=== PATIENT | male | born 1945 | race Caucasian/White ===

== ENCOUNTER → 2018-04-17 07:37 | Outpatient (CLI) | payer MEDICARE, SELFPAY ==
[2018-04-17 10:15] LABS: Color, Urine Yellow (Yellow); Glucose, Dipstick Normal (Normal); Ketone-Dipstick Negative (Negative); Leukocyte Esterase-Dipstick Negative /ul (Negative); Nitrite-Dipstick Negative (Negative); Occult Blood-Urine Negative /ul (Negative); Protein-Dipstick Negative (Negative); Urine Bilirubin Dipstick Negative (Negative); Urine Clarity Clear (Clear); Urine Urobilinogen Normal (Normal)
[2018-04-17 10:19] LABS: Absolute Lymphocyte Count 1.12 X10^3/ul (0.83-4.51); Absolute Neutrophil Count 2.6 X10^3/uL (2.0-7.7); Basophil# 0.03 X10^3/uL; Basophil% 0.7 % (0-1); Eosinophil# 0.24 X10^3/uL; Eosinophils% 5.3 % (0-5); Hematocrit 43.6 % (40-54); Hemoglobin 14.9 g/dl (13.0-16.5); Lymphocyte # 1.12 X10^3/ul (4.0); Lymphocyte % 24.9 % (19-41); Mean Corp Hgb Conc 34.2 g/gl (32-36); Mean Corpuscular Hgb 33.5 pg (27.0-32.0); Mean Platelet Vol. 12.5 fl (6.2-12.0); Monocyte# 0.46 X10^3/uL; Monocyte% 10.2 % (0-10); Neutrophil # 2.64 X10^3/uL (2.7-7.7); Neutrophil % 58.7 % (47-70); Platelet Count 163 K/mm3 (150-450); RBC Distribution Width CV 13.9 % (11.6-14.6); RBC Distribution Width SD 49.3 fl (35.1-43.9); Red Blood Count 4.45 M/mm3 (4.6-6.2); White Blood Count 4.5 K/mm3 (4.4-11.0)
[2018-04-17 10:20] LABS: POSITIVE COUNT NO; POSITIVE DIFFERENTIAL NO; POSITIVE MORPHOLOGY NO
[2018-04-17 10:37] LABS: BUN 30 mg/dL (7-18); Creatinine, Serum 1.27 mg/dL (0.70-1.30); Glucose 88 mg/dL (74-106)
[2018-04-17 10:38] LABS: ALB/GLOB Ratio 1.1 RATIO (0.9-2.4); AST(SGOT) 28 U/L (15-37); Alanine Aminotransfer ALT/SGPT 33 U/L (16-61); Albumin, Serum 3.9 g/dL (3.2-5.0); Alkaline Phosphatase 60 U/L (45-117); Anion Gap 8 (5-15); BUN/Creat Ratio 23.6 RATIO (10-20); Calcium,Total 9.2 mg/dL (8.5-10.1); Chloride 107 mmol/L (98-107); Cholesterol 139 mg/dL (200); EST Glomerular Filtration Rate 59 mL/min (>60); Est Glom Filt Rate - Afr Amer 71 mL/min (>60); Globulin 3.4 g/dL (2.2-4.2); High Density Lipoprotein 36 mg/dL; Protein, Total 7.3 g/dL (6.4-8.2); Sodium Level 142 mmol/L (136-145); Triglycerides 114 mg/dL; Very Low Density Lipoprotein 23 mg/dL (5-40)
== END ==
PROVIDERS: Family Provider Family Medicine; PCP Family Medicine; Visit Provider Family Medicine
DX: Z00.00 Encounter for general adult medical examination without abnormal findings (principal); E78.00 Pure hypercholesterolemia, unspecified; I10 Essential (primary) hypertension; R04.0 Epistaxis; Z12.5 Encounter for screening for malignant neoplasm of prostate
CPT/HCPCS: 36415; 80053; 80061; 81002; 84153; 85025; G0103

== ENCOUNTER → 2018-05-17 14:15 | Outpatient (CLI) | payer MEDICARE, SELFPAY ==
--- NOTE | 2018-05-17 14:22 | VDLE_ITS ---
Reason For Study: LEG PAIN AND SWELLING/s/p trauma RIGHT LEFT GSV is normal. CFV is compressible, spontaneous, phasic, CFV is compressible, spontaneous, phasic, competent, and demonstrates normal competent and demonstrates normal augmentation. augmentation. FV is compressible, spontaneous, phasic, competent and demonstrates normal augmentation. POP V is compressible, spontaneous, phasic, competent and demonstrates normal augmentation. T/P Trunk is compressible. PTV is compressible. RT PerV is compressible. Soleus vein dilated and non-compressible Hypoechoic structure noted medial calf measuring3.6 x .55 cm. Non-vascular. Procedure Exam performed in department. A preliminary report was called and/or faxed to Dr. Isaac. Interpretation Summary Acute deep vein thrombosis is noted in the right soleus vein. The remainder of the right lower extremity deep venous system is patent and compressible. Valvular competence appears intact within the proximal deep venous system on the right . The right greater saphenous vein appears patent and compressible segmentally. A non-vascular, hypoechoic structure is noted in the right medial calf, measuring 3.6 cm x 0.55 cm. This probably represents a seroma or hematoma. Clinical correlation is advised. Ordering Physician: Lobito Isaac Referring Physician: Lobito Isaac Performed By: Kadi Newberry RVT
== END ==
PROVIDERS: Family Provider Family Medicine; PCP Family Medicine; Visit Provider Family Medicine
DX: I82.4Z1 Acute embolism and thrombosis of unspecified deep veins of right distal lower extremity (principal); M79.89 Other specified soft tissue disorders
CPT/HCPCS: 93971

== ENCOUNTER → 2018-10-08 07:38 | Outpatient (CLI) | payer MEDICARE, SELFPAY ==
[2018-10-08 11:05] LABS: AST(SGOT) 24 U/L (15-37); Alanine Aminotransfer ALT/SGPT 32 U/L (16-61); Albumin, Serum 3.7 g/dL (3.2-5.0); Alkaline Phosphatase 54 U/L (45-117); Bilirubin, Direct 0.15 mg/dL (0.00-0.30); Cholesterol 126 mg/dL (200); Globulin 3.3 g/dL (2.2-4.2); High Density Lipoprotein 34 mg/dL; Triglycerides 148 mg/dL; Very Low Density Lipoprotein 30 mg/dL (5-40)
== END ==
PROVIDERS: Family Provider Family Medicine; PCP Family Medicine; Referring Provider Family Medicine; Visit Provider Family Medicine
DX: E78.00 Pure hypercholesterolemia, unspecified (principal)
CPT/HCPCS: 36415; 80061; 80076

== ENCOUNTER → 2019-04-18 07:35 | Outpatient (CLI) | payer MEDICARE, SELFPAY ==
[2019-04-18 10:20] LABS: Absolute Lymphocyte Count 1.09 X10^3/ul (0.83-4.51); Basophil# 0.02 X10^3/uL; Basophil% 0.3 % (0-1); Eosinophil# 0.17 X10^3/uL; Eosinophils% 2.5 % (0-5); Hemoglobin 14.9 g/dl (13.0-16.5); Lymphocyte # 1.09 X10^3/ul (4.0); Lymphocyte % 16.2 % (19-41); Mean Corp Hgb Conc 33.9 g/gl (32-36); Mean Corpuscular Hgb 33.5 pg (27.0-32.0); Mean Corpuscular Volume 98.9 fL (80-94); Mean Platelet Vol. 12.4 fl (6.2-12.0); Monocyte# 0.49 X10^3/uL; Monocyte% 7.3 % (0-10); Neutrophil # 4.95 X10^3/uL (2.7-7.7); Neutrophil % 73.6 % (47-70); POSITIVE COUNT NO; POSITIVE DIFFERENTIAL NO; POSITIVE MORPHOLOGY NO; Platelet Count 156 K/mm3 (150-450); RBC Distribution Width CV 13.5 % (11.6-14.6); RBC Distribution Width SD 48.5 fl (35.1-43.9); Red Blood Count 4.45 M/mm3 (4.6-6.2); White Blood Count 6.7 K/mm3 (4.4-11.0)
[2019-04-18 10:21] LABS: Color, Urine Yellow (Yellow); Glucose, Dipstick Normal (Normal); Ketone-Dipstick Negative (Negative); Leukocyte Esterase-Dipstick Negative /ul (Negative); Nitrite-Dipstick Negative (Negative); Occult Blood-Urine Negative /ul (Negative); Protein-Dipstick Negative (Negative); Urine Bilirubin Dipstick Negative (Negative); Urine Clarity Clear (Clear); Urine Urobilinogen Normal (Normal); Urine pH 6.5 (5.0 - 8.0)
[2019-04-18 10:52] LABS: ALB/GLOB Ratio 1.1 RATIO (0.9-2.4); AST(SGOT) 24 U/L (15-37); Alanine Aminotransfer ALT/SGPT 33 U/L (16-61); Albumin, Serum 3.6 g/dL (3.2-5.0); Alkaline Phosphatase 57 U/L (45-117); Anion Gap 6 (5-15); BUN 23 mg/dL (7-18); BUN/Creat Ratio 18.5 RATIO (10-20); Calcium,Total 8.8 mg/dL (8.5-10.1); Chloride 107 mmol/L (98-107); Cholesterol 125 mg/dL (200); Creatinine, Serum 1.24 mg/dL (0.70-1.30); EST Glomerular Filtration Rate 61 mL/min (>60); Est Glom Filt Rate - Afr Amer 73 mL/min (>60); Globulin 3.4 g/dL (2.2-4.2); Glucose 86 mg/dL (74-106); High Density Lipoprotein 37 mg/dL; PSA,Total - Annual Screen 0.21 ng/mL (0.00-4.00); Potassium 4.1 mmol/L (3.5-5.1); Sodium Level 142 mmol/L (136-145); Triglycerides 141 mg/dL; Very Low Density Lipoprotein 28 mg/dL (5-40)
== END ==
PROVIDERS: Family Provider Family Medicine; PCP Family Medicine; Referring Provider Family Medicine; Visit Provider Family Medicine
DX: Z00.00 Encounter for general adult medical examination without abnormal findings (principal); I10 Essential (primary) hypertension; E78.00 Pure hypercholesterolemia, unspecified; Z12.5 Encounter for screening for malignant neoplasm of prostate
CPT/HCPCS: 36415; 80053; 80061; 81002; 84153; 85025; G0103

== ENCOUNTER → 2019-07-04 12:59 | Outpatient (CLI) | payer MEDICARE, SELFPAY ==
[2017-11-11 15:10] VITALS: BMI 29.6
[2019-07-04 14:28] LABS: Homocysteine 10.6 umol/L (3.2-10.7)
== END ==
PROVIDERS: Family Provider Family Medicine; PCP Family Medicine; Referring Provider Family Medicine; Visit Provider Family Medicine
DX: D68.59 Other primary thrombophilia (principal); Z86.718 Personal history of other venous thrombosis and embolism
CPT/HCPCS: 36415; 81241; 83090; 85240; 85302; 85303; 85306; 85610; 86147

== ENCOUNTER → 2019-10-28 07:16 | Outpatient (CLI) | payer MEDICARE, SELFPAY ==
[2019-10-28 10:38] LABS: ALB/GLOB Ratio 1.2 RATIO (0.9-2.4); AST(SGOT) 25 U/L (15-37); Alanine Aminotransfer ALT/SGPT 29 U/L (16-61); Albumin, Serum 4.1 g/dL (3.2-5.0); Alkaline Phosphatase 60 U/L (45-117); Anion Gap 4 (5-15); BUN 29 mg/dL (7-18); BUN/Creat Ratio 19.7 RATIO (10-20); Calcium,Total 9.3 mg/dL (8.5-10.1); Chloride 108 mmol/L (98-107); Cholesterol 141 mg/dL (200); Creatinine, Serum 1.47 mg/dL (0.70-1.30); EST Glomerular Filtration Rate 50 mL/min (>60); Est Glom Filt Rate - Afr Amer 60 mL/min (>60); Globulin 3.3 g/dL (2.2-4.2); Glucose 87 mg/dL (74-106); High Density Lipoprotein 37 mg/dL; Potassium 3.8 mmol/L (3.5-5.1); Protein, Total 7.4 g/dL (6.4-8.2); Sodium Level 141 mmol/L (136-145); Triglycerides 135 mg/dL; Very Low Density Lipoprotein 27 mg/dL (5-40)
== END ==
PROVIDERS: Family Provider Family Medicine; PCP Family Medicine; Referring Provider Family Medicine; Visit Provider Family Medicine
DX: I10 Essential (primary) hypertension (principal); E78.00 Pure hypercholesterolemia, unspecified
CPT/HCPCS: 36415; 80053; 80061

== ENCOUNTER → 2019-11-10 07:33 | Outpatient (CLI) | payer MEDICARE, SELFPAY ==
[2019-11-10 10:22] LABS: Anion Gap 4 (5-15); BUN 22 mg/dL (7-18); BUN/Creat Ratio 15.8 RATIO (10-20); Calcium,Total 9.2 mg/dL (8.5-10.1); Chloride 105 mmol/L (98-107); Creatinine, Serum 1.39 mg/dL (0.70-1.30); EST Glomerular Filtration Rate 53 mL/min (>60); Est Glom Filt Rate - Afr Amer 64 mL/min (>60); Glucose 86 mg/dL (74-106); Sodium Level 139 mmol/L (136-145)
== END ==
PROVIDERS: Family Provider Family Medicine; PCP Family Medicine; Referring Provider Family Medicine; Visit Provider Family Medicine
DX: R79.89 Other specified abnormal findings of blood chemistry (principal)
CPT/HCPCS: 36415; 80048

== ENCOUNTER → 2020-02-16 07:32 | Outpatient (CLI) | payer MEDICARE, SELFPAY ==
[2017-11-11 15:10] VITALS: BMI 29.6
[2020-02-16 10:33] LABS: Anion Gap 5 (5-15); BUN 25 mg/dL (7-18); BUN/Creat Ratio 19.5 RATIO (10-20); Calcium,Total 9.5 mg/dL (8.5-10.1); Chloride 105 mmol/L (98-107); Creatinine, Serum 1.28 mg/dL (0.70-1.30); EST Glomerular Filtration Rate 58 mL/min (>60); Est Glom Filt Rate - Afr Amer 70 mL/min (>60); Glucose 89 mg/dL (74-106); Potassium 3.7 mmol/L (3.5-5.1); Sodium Level 140 mmol/L (136-145)
== END ==
PROVIDERS: PCP Family Medicine; Referring Provider Family Medicine; Visit Provider Family Medicine
DX: R79.89 Other specified abnormal findings of blood chemistry (principal)
CPT/HCPCS: 36415; 80048

== ENCOUNTER → 2020-04-30 07:34 | Outpatient (CLI) | payer MEDICARE, SELFPAY ==
[2017-11-11 15:10] VITALS: BMI 29.6
[2020-04-30 10:19] LABS: Color, Urine Yellow (Yellow); Glucose, Dipstick Normal (Normal); Ketone-Dipstick Negative (Negative); Leukocyte Esterase-Dipstick Negative /ul (Negative); Nitrite-Dipstick Negative (Negative); Occult Blood-Urine Negative /ul (Negative); Protein-Dipstick Negative (Negative); Specific Gravity, Urine 1.015 (1.002-1.030); Urine Bilirubin Dipstick Negative (Negative); Urine Clarity Clear (Clear); Urine Urobilinogen Normal (Normal)
[2020-04-30 10:20] LABS: Absolute Neutrophil Count 3.7 X10^3/uL (2.0-7.7); Basophil# 0.05 X10^3/uL; Basophil% 0.8 % (0-1); Eosinophil# 0.34 X10^3/uL; Eosinophils% 5.3 % (0-5); Hematocrit 46.6 % (40-54); Hemoglobin 15.6 g/dL (13.0-16.5); Lymphocyte % 24.8 % (19-41); Mean Corp Hgb Conc 33.5 g/dL (32-36); Mean Corpuscular Hgb 33.8 pg (27.0-32.0); Mean Corpuscular Volume 100.9 fL (80-94); Mean Platelet Vol. 11.9 fl (6.2-12.0); Monocyte# 0.71 X10^3/uL; NRBC Flagged by Analyzer 0 % (0-5); Neutrophil # 3.73 X10^3/uL (2.7-7.7); Neutrophil % 57.6 % (47-70); Platelet Count 203 K/mm3 (150-450); RBC Distribution Width CV 13.2 % (11.6-14.6); RBC Distribution Width SD 49.1 fl (35.1-43.9); Red Blood Count 4.62 M/mm3 (4.6-6.2); White Blood Count 6.5 K/mm3 (4.4-11.0)
[2020-04-30 10:34] LABS: ALB/GLOB Ratio 1.1 RATIO (0.9-2.4); AST(SGOT) 30 U/L (15-37); Alanine Aminotransfer ALT/SGPT 33 U/L (16-61); Albumin, Serum 4.1 g/dL (3.2-5.0); Alkaline Phosphatase 61 U/L (45-117); Anion Gap 7 (5-15); BUN 37 mg/dL (7-18); BUN/Creat Ratio 24.8 RATIO (10-20); Calcium,Total 9.5 mg/dL (8.5-10.1); Chloride 105 mmol/L (98-107); Cholesterol 165 mg/dL (200); Creatinine, Serum 1.49 mg/dL (0.70-1.30); EST Glomerular Filtration Rate 49 mL/min (>60); Est Glom Filt Rate - Afr Amer 59 mL/min (>60); Globulin 3.7 g/dL (2.2-4.2); Glucose 93 mg/dL (74-106); High Density Lipoprotein 42 mg/dL; PSA,Total - Annual Screen 0.22 ng/mL (0.00-4.00); Potassium 4.4 mmol/L (3.5-5.1); Protein, Total 7.8 g/dL (6.4-8.2); Sodium Level 140 mmol/L (136-145); Triglycerides 106 mg/dL; Very Low Density Lipoprotein 21 mg/dL (5-40)
== END ==
PROVIDERS: PCP Family Medicine; Referring Provider Family Medicine; Visit Provider Family Medicine
DX: Z00.00 Encounter for general adult medical examination without abnormal findings (principal); R79.89 Other specified abnormal findings of blood chemistry; D68.59 Other primary thrombophilia; I10 Essential (primary) hypertension; E78.00 Pure hypercholesterolemia, unspecified; Z12.5 Encounter for screening for malignant neoplasm of prostate
CPT/HCPCS: 36415; 80053; 80061; 81002; 84153; 85025; G0103

== ENCOUNTER 2020-10-14 07:04 | Emergency (ER) | payer MEDICARE, SELFPAY ==
[2020-10-14 07:05] VITALS: BP 145/92; PULSE 88; RESP 16; TEMP 36.4; O2SAT 98; BMI 29.6
[2020-10-14 07:08] VITALS: BP 145/92; PULSE 88; RESP 16; TEMP 36.4; O2SAT 98
--- NOTE | 2020-10-14 07:30 | CT_ITS ---
STUDY: CT ABDOMEN AND PELVIS WITHOUT CONTRAST REASON FOR EXAM: Male, 75 years old. Right flank pain intermittently x several weeks, nausea/vomiting. Hx hypertension. RADIATION DOSAGE (If Supplied By Facility): CTDIvol = ( 16.54 ) mGy, DLP = ( 776.71 ) mGycm TECHNIQUE: Transaxial images were obtained from the dome of the diaphragm to the symphysis pubis without oral contrast, and without intravenous contrast. Sagittal and coronal images were reconstructed. Individualized dose optimization techniques were used for this CT. COMPARISON: None. FINDINGS: Lung bases: Increased AP diameter favoring element of COPD. Mild dependent changes. Atelectasis/scar at the lung bases. Left lung bases 3 mm nodule (axial image 2 series 2). Left lung base 3 mm nodule (axial image 6 series 2). Heart: Coronary artery disease. Liver: Hepatic steatosis. Gallbladder/biliary ducts: Unremarkable. Pancreas: Mild pancreatic atrophy. Spleen: Unremarkable. Adrenal glands: Unremarkable. Kidneys/ureters/bladder: Minimal perinephric fat stranding. Mild renal parenchymal atrophy. Abnormal lobulated contour of the right kidney (axial image 33 series 2). No discrete renal lesion identified given noncontrast technique. Nondilated ureters. Normal urinary bladder. Prostate: Unremarkable. Large bowel/small bowel: No acute large bowel or small bowel process. Appendix: Unremarkable (axial image 89 series 2). Gastroesophageal junction/stomach: Unremarkable. Retroperitoneum/lymph nodes: Significantly enlarged para-aortic lymph nodes measuring up to approximately 2.8 cm x 2.9 cm with somewhat matted appearance (axial image 58 series 2). Region of left traumatic measures approximately 7.4 cm x 3 cm (axial image 60 series 2). No ascites. No intra-abdominal free air. Vascular: Vascular calcifications. No aneurysm. Osseous structures: Degenerative changes. L5 bilateral pars defects with grade 1/2 spondylolisthesis. No acute process. Subcutaneous/soft tissues: Fat-containing inguinal hernias. No acute process. CT/Abdomen/Pelvis without Cont IMPRESSION: Significantly enlarged para-aortic lymph nodes with matting (potential infectious/inflammatory/neoplastic etiologies; correlate CBC with differential) Bilateral perinephric fat stranding (correlate urinalysis) Atypical asymmetric right kidney lobulated contour without obvious discrete lesion given noncontrast technique (correlate follow-up nonemergent ultrasound or renal protocol CT/MRI) COPD with 3 mm lung based nodules (follow up as per below) The Fleischner society pulmonary nodule recommendations are usually for follow-up and management of nodules smaller than 8 mm. Detected Incidentally at non-screening CT Nodule size (mm) less than or equal to 4 low risk patients: no follow-up needed high risk patients: follow-up at 12 months and if no change, no further imaging needed Electronically Signed: Chris Thayer DO at 8:27 EST Tel , Service support ,
--- NOTE | 2020-10-14 07:38 | ED.DCSUM_ITS ---
History of Present Illness Chief Complaint: General Illness Narrative: Patient presenting for evaluation secondary to chills and flank pain. Patient states that intermittently over the course of about the last week he has been having paroxysmal right-sided flank pain. Reports that this will come and go, does not really have any sort of exacerbating relieving factors. He was having an increased amount of pain tonight, he took a buffered aspirin which did not seem to be alleviating his symptoms. Over the course the last 4 days the patient tells me that he has been having chills. This is associated with tooth chattering at night. He has not had any objective fevers, he took his temperature last night it was 98.7. Patient does report that he had an episode of emesis tonight. Patient has a very mild cough which he states is at his baseline. He denies any urinary signs or symptoms. Denies any diarrhea or change in color of his stool. Patient denies any history of abdominal surgeries. He denies any sick contacts. No shortness of breath or headache associated with this. He does not have any prior history of kidney stones. Review of systems otherwise negative. Past Medical History - Allergies and Home Meds Allergies/Adverse Reactions: Allergies celecoxib [From Celebrex] Allergy (Verified 10/14/20 07:05) Unknown meloxicam Allergy (Verified 10/14/20 07:05) Unknown Primary Care Physician: Lobito Isaac MD [Primary Care Provider] - Prior records reviewed: Yes Past Medical History: - - Hypertension, hyperlipidemia Smoking Status: Never smoker Alcohol: None Drugs: None Review of Systems All systems negative except as indicated General: Reports: Chills Eyes: Denies: Visual changes - bilaterally, Diplopia ENT: Denies: Rhinorrhea, Sore throat Cardiovascular: Denies: Chest pain, Palpitations Respiratory: Denies: Dyspnea, Cough, Dyspnea on exertion Gastrointestinal: Reports: Abdominal pain, Nausea, Vomiting Genitourinary: Denies: Dysuria, Hematuria, Frequency Musculoskeletal: Denies: Back pain, Extremity Pain Skin: Denies: Rash, Wounds Neurological: Denies: Headache, Weakness, Numbness Physical Exam Vital Signs/Narrative: Vital Signs Temp Pulse Resp BP Pulse Ox 10/14/20 07:08 97.5 F L 88 16 145/92 H 98 10/14/20 07:05 97.5 F L 88 16 145/92 H 98 Inital Vital Signs reviewed: Yes General: Well nourished, Well developed, No Acute Distress Head: Normocephalic, Atraumatic Eyes: Perrl, EOMI ENT: Moist mucous membranes, No rhinorrhea Neck: Supple, Nontender Cardiovascular: Regular rate, Regular rhythm, No murmurs Respiratory: No distress, CTA bilaterally, Chest nontender Abdomen: Soft, Nontender, Nondistended, Normal bowel sounds. Negative for: Tender - Patient complains of pain in his right flank but there is no reproduction of this. No evidence of overlying vesicular rash. No abdominal tenderness or masses. Back: Nontender, Normal Inspection Extremities: Nontender, No edema Skin: Normal color, No rash Neurological: Alert, Oriented x3, Cranial nerves II-XII grossly intact, Normal Strength, Normal Sensation Psychological: Normal affect, Normal Mood Diagnostic/Tx/Re-eval Clinical Impression(s) from Imaging Studies Abdomen/Pelvis CT 10/14/20 07:30 IMPRESSION: Significantly enlarged para-aortic lymph nodes with matting (potential infectious/inflammatory/neoplastic etiologies; correlate CBC with differential) Bilateral perinephric fat stranding (correlate urinalysis) Atypical asymmetric right kidney lobulated contour without obvious discrete lesion given noncontrast technique (correlate follow-up nonemergent ultrasound or renal protocol CT/MRI) COPD with 3 mm lung based nodules (follow up as per below) The Fleischner society pulmonary nodule recommendations are usually for follow-up and management of nodules smaller than 8 mm. Detected Incidentally at non-screening CT Nodule size (mm) less than or equal to 4 low risk patients: no follow-up needed high risk patients: follow-up at 12 months and if no change, no further imaging needed Electronically Signed: Chris Thayer DO at 8:27 EST Tel , Service support , Laboratory Data 10/14/20 10/14/20 10/14/20 07:35 07:35 07:56 WBC 11.5 H RBC 4.39 L Hgb 14.6 Hct 44.0 MCV 100.2 H MCH 33.3 H MCHC 33.2 RDW Std Deviation 47.8 H RDW Coeff of Luis 12.8 Plt Count 208 MPV 11.1 Immature Gran % (Auto) 0.300 Neut % (Auto) 83.7 H Lymph % (Auto) 6.0 L [place] % (Auto) 9.5 Eos % (Auto) 0.3 Baso % (Auto) 0.2 Absolute Neuts (auto) 9.6 H Absolute Lymphs (auto) 0.69 L Nucleated RBC % 0 Sodium 136 Potassium 4.0 Chloride 105 Carbon Dioxide 24.0 Anion Gap 7 BUN 29 H Creatinine 1.47 H Estim Creat Clear Calc 41.36 Est GFR (MDRD) Af Amer 60 Est GFR (MDRD) Non-Af 50 L BUN/Creatinine Ratio 19.7 Glucose 125 H Calcium 9.6 Urine Color Yellow Urine Clarity Sl. Cloudy Urine pH 6.0 Ur Specific [place] 1.015 Urine Protein 15 H Urine Glucose (UA) Normal Urine Ketones 5 H Urine Occult Blood Negative Urine Nitrite Negative Urine Bilirubin Negative Urine Urobilinogen Normal Ur Leukocyte Esterase Negative Urine RBC 0 SEEN Urine WBC 0 SEEN Ur Squamous Epith Cells 0-5 SEEN Urine Bacteria RARE Hyaline Casts 0-5 SEEN Urine Mucus 0 SEEN - Medical Decision Making Patient presented with chills and flank pain. IV was established laboratory studies were obtained. CBC demonstrates a white blood cell count of 11 with a slight neutrophilic predominance, no evidence of blast cells, no evidence of anemia or thrombocytopenia. Chemistry shows no evidence of electrolyte derangements, patient's renal function is at baseline. Urinalysis does not demonstrate evidence of infection. As there was some concern for the possibility of renal colic, CT abdomen and pelvis was performed without IV contrast. This does not demonstrate any evidence of urolithiasis, or any intestinal pathology, but does show some perinephric stranding and also shows lymph node enlargement in the periaortic area. Differential considerations included by radiology were inflammatory, infectious, or neoplastic. This does not seem to be an infectious etiology as the patient does not have objective fevers, does not have a significant leukocytosis and appears nontoxic. This is more likely to be neoplastic or inflammatory. I did contact oncology, Dr. Vallejo, who agrees to see the patient in follow-up. I informed the patient of these findings, and instructed him that he will be requiring advanced imaging and further work-up of this. All questions were answered at the bedside. Patient was discharged in stable condition. ED Disposition - Plan for ED Patient: Disposition: Home or Assisted Living Diagnosis: Lymphadenopathy, retroperitoneal Instructions: Blank Diagnosis Form Referrals: Diane Eugene MD [STAFF PHYSICIAN] - As soon as possible (Call the office tomorrow between 9 AM and noon for the first available appointment)
[2020-10-14] MEDS: Ondansetron 4 MG/2 ML Vial IV (07:44)
[2020-10-14] MEDS: Acetaminophen 325 MG Tablet 650 MG PO (07:44)
[2020-10-14 07:47] LABS: Absolute Lymphocyte Count 0.69 X10^3/uL (0.83-4.51); Absolute Neutrophil Count 9.6 X10^3/uL (2.0-7.7); Basophil# 0.02 X10^3/uL; Basophil% 0.2 % (0-1); Eosinophil# 0.03 X10^3/uL; Eosinophils% 0.3 % (0-5); Hemoglobin 14.6 g/dL (13.0-16.5); Lymphocyte # 0.69 X10^3/ul (4.0); Mean Corp Hgb Conc 33.2 g/dL (32-36); Mean Corpuscular Hgb 33.3 pg (27.0-32.0); Mean Corpuscular Volume 100.2 fL (80-94); Mean Platelet Vol. 11.1 fl (6.2-12.0); Monocyte# 1.09 X10^3/uL; Monocyte% 9.5 % (0-10); NRBC Flagged by Analyzer 0 % (0-5); Neutrophil # 9.58 X10^3/uL (2.7-7.7); Neutrophil % 83.7 % (47-70); Platelet Count 208 K/mm3 (150-450); RBC Distribution Width CV 12.8 % (11.6-14.6); RBC Distribution Width SD 47.8 fl (35.1-43.9); Red Blood Count 4.39 M/mm3 (4.6-6.2); White Blood Count 11.5 K/mm3 (4.4-11.0)
[2020-10-14 08:03] LABS: Anion Gap 7 (5-15); BUN 29 mg/dL (7-18); BUN/Creat Ratio 19.7 RATIO (10-20); Calcium,Total 9.6 mg/dL (8.5-10.1); Chloride 105 mmol/L (98-107); Creatinine, Serum 1.47 mg/dL (0.70-1.30); EST Glomerular Filtration Rate 50 mL/min (>60); Est Glom Filt Rate - Afr Amer 60 mL/min (>60); Estimated Creatinine Clearance 41.36 ml/min; Glucose 125 mg/dL (74-106); Sodium Level 136 mmol/L (136-145)
[2020-10-14 08:03] LABS: Mucous, Urine 0 SEEN /hpf (<or=2+); Red Blood Cells-Urine 0 SEEN /hpf (0-5); White Blood Cells 0 SEEN /hpf (0-5)
[2020-10-14 08:04] LABS: Color, Urine Yellow (Yellow); Glucose, Dipstick Normal (Normal); Ketone-Dipstick 5 mg/dl (Negative); Leukocyte Esterase-Dipstick Negative /ul (Negative); Nitrite-Dipstick Negative (Negative); Occult Blood-Urine Negative /ul (Negative); Protein-Dipstick 15 mg/dl (Negative); Specific Gravity, Urine 1.015 (1.002-1.030); Urine Bilirubin Dipstick Negative (Negative); Urine Clarity Sl. Cloudy (Clear); Urine Urobilinogen Normal (Normal)
[2020-10-14 08:12] LABS: Bacteria RARE /hpf (None Seen); Hyaline Cast 0-5 SEEN /lpf (0-5); Squamous Epithelial Cells - UA 0-5 SEEN /hpf (0-5)
[2020-10-14 09:21] VITALS: BP 112/78; PULSE 75; RESP 18; O2SAT 93
== END 2020-10-14 09:31 | disposition home or self-care (01) ==
PROVIDERS: Emergency Provider Emergency Medicine; PCP Family Medicine
DX: R59.0 Localized enlarged lymph nodes (principal); Z20.828 Contact with and (suspected) exposure to other viral communicable diseases; R10.9 Unspecified abdominal pain; R11.2 Nausea with vomiting, unspecified; R05 Cough; R68.83 Chills (without fever); J44.9 Chronic obstructive pulmonary disease, unspecified; I10 Essential (primary) hypertension; E78.5 Hyperlipidemia, unspecified; Z79.899 Other long term (current) drug therapy
CPT/HCPCS: 74176; 80048; 81001; 85025; 87635; 96374; 99284; J2405; U0003

== ENCOUNTER → 2020-10-27 07:42 | Outpatient (CLI) | payer MEDICARE, SELFPAY ==
[2020-10-27] VITALS (9 sets, daily range): BP systolic 99–147; BP diastolic 60–82; PULSE 62–74; RESP 13–19; TEMP 36.9; O2SAT 94–100; BMI 29.6
--- NOTE | 2020-10-27 | IMM_PTH ---
PATIENT: STEPHEN CHILDRESS LOC: [place] U#:[id number] AGE/SX: 80/M ROOM: RE10/27/[address]: Dr. Diane Eugene MD : 1945 BED: DIS: SPEC #: [id number] RECD: 10/28/20 13:54 STATUS: DARIUS REQ #: [id number] LEIGHANN: 10/27/20 00:[address]: Diane Eugene DEPT: IMMUNOHISTOCHEMISTRY RECD BY: Alma Donato ENTERED: 10/28/20 13:58 SP TYPE: IMMUNO OTHR DR: Dr. Lobito Isaac MD Tissues: Lymph node, NOS Procedures: Synapto (add) RCC (add) NAPSIN A (add) BCL-2 (add) BCL-6 (add) Bridger Ret (add) CD10 (add) CD138 (add) CD15 (add) CD20 (add) CD23 (add) CD3 (add) CD30 (add) CD31 (add) CD43 (add) CD45 (add) CD5 (add) CD56 (add) CD79A (add) CHROMO (add) CK20 (add) CK5-6 (add) CK7 (add) CK8 (add) MANNING-2 (add) CYCLIN (add) FIDEL (add) HEP PAR (add) KAPPA (add) KI-67 (add) LAMBDA (add) MACRO (add) P53 (add) TTF1 (add) Vimentin (add) FACTOR VIII (add) MUM1 (add) C-MYC (add) Pankeratin (initial) P40 (add) CD44 (add) PSAP (add) S-100 (add) PHYSICIAN & INSTITUTION [address] [address] SPECIMEN INFORMATION: Tissue Source: Right peritoneal lymph node Clinical Info: Enlarged lymph nodes Specimen Number: [id number] CPT code: 55118, 89786 x42 METHODOLOGY: Deparaffinized sections of prefer/formalin-fixed tissue or PAP/DQ stained slides are incubated with monoclonal/polyclonal antibodies/oligonucleotide probes. Localization is made via biotin free immunoperoxidase method. Appropriate controls are performed and reacted as expected. Results on target cell population are indicated in the following table: RESULTS: ANTIBODY / CLONE RESULT AE1-3 (AE1/AE3/PCK26) positive CD3 (PS1) negative CD5 (SP10) negative CD10 (56C6) negative CD15 (MMA) negative CD20 (L26) negative CD23 (1B12) negative CD30 (Felix-H2) negative CD31 (JJ/70A) negative CD43 (L60) negative CD45 (RP2/18) negative CD79a (11E3) negative CD138 (B-A38) negative BCL-2 (bcl-2/100/D5) negative BCL-6 (BL528T/A8) negative Cyclin D1/BCL-1 (SP4) negative Teller (polyclonal) negative Lambda (polyclonal) negative MUM1 (MRQ-43) negative C-MYC (Y69) negative Vimentin (V9) positive Factor VIII (R Ag) negative Macro (HAM-56) negative S-100 (4C4.9) negative FIDEL (E29) negative P53 (DO-7) positive, 50% Ki-67 (30-9) negative CK7 (OV-TL12/30) negative CK8 (74dgmdH88) negative CK20 (KS20.8) negative MANNING-2 (SP21) positive CD56 (123C3.D5) negative Chromo (LK2H10) negative Synapto (polyclonal) negative TTF-1 (8G7G3/1) negative Napsin A (Rabbit Polyclonal) negative HepPar (OCh1E5) negative RCC (PN-15) negative PSAP (PASE/4LJ) negative CALRET (polyclonal) negative anti-CD44 (SP37) positive CK5-6 (D5 & 1684) negative P40 (BC28) negative These tests were developed and their performance characteristics determined by [facility]. They may not have been cleared or approved by the U.S. Food and Drug Administration. The FDA has determined that such clearance or approval is not necessary. The above immunohistochemical/dualISH markers are ordered and reviewed by the Pathologist. INTERPRETATION: Right peritoneal lymph node, CT-guided biopsy: Atypical epithelioid cells present. AM:richie 11/02/20 Case has been reviewed in consultation with Dr. Adler who concurs with the above diagnosis. IDC:ALBERT
--- NOTE | 2020-10-27 07:56 | CT_ITS ---
PROCEDURE: CT GUIDED percutaneous biopsy of the retroperitoneal lymph nodes. DATE: 10/27/2020. INDICATION: Male, 75 years old. Retroperitoneal lymphadenopathy. PHYSICIAN: Roberto Carlos Street M.D. RADIATION DOSAGE (If Supplied By Facility): CTDIvol = ( 16.67 ) mGy, DLP = ( 390.94 ) mGycm PROCEDURE: The risks, benefits, and alternatives to the procedure were explained to the patient. The specific risk of hemorrhage requiring further treatment or intervention was detailed and accepted. Follow-up instructions were discussed with the patient as well. Written informed consent was obtained. The patient was brought into the CT suite and placed in the prone position.. . An appropriate entry site was identified. The overlying skin was prepped and draped in the usual sterile fashion. 1% lidocaine was administered subcutaneously for local anesthesia. Conscious sedation was performed. The patient received 2 mg of VERSED and 50 mcg of FENTANYL intravenously. Conscious sedation was started at 9:05 AM and terminated at 9:47 AM. The patient was independently monitored by the department nurse. Under CT guidance, a total of 7 passes were performed utilizing a 18-gauge core biopsy needle. The specimens were then placed in the appropriate fluid and transported to the laboratory for analysis. Hemostasis was obtained. The patient tolerated the procedure well without immediate complications. CT/Biopsy/Inj or Needle Placement IMPRESSION: Successful CT guided biopsy of the right retroperitoneal lymph nodes, as described above. Conscious sedation protocol was followed. Electronically Signed: Roberto Carlos Street, at 10:19 EST , Service support ,
[2020-10-27 07:57] LABS: Absolute Lymphocyte Count 1.31 X10^3/uL (0.83-4.51); Absolute Neutrophil Count 6.3 X10^3/uL (2.0-7.7); Basophil# 0.06 X10^3/uL; Basophil% 0.7 % (0-1); Eosinophil# 0.21 X10^3/uL; Eosinophils% 2.5 % (0-5); Hematocrit 42.6 % (40-54); Hemoglobin 14.3 g/dL (13.0-16.5); Lymphocyte # 1.31 X10^3/ul (4.0); Lymphocyte % 15.4 % (19-41); Mean Corp Hgb Conc 33.6 g/dL (32-36); Mean Corpuscular Hgb 33.7 pg (27.0-32.0); Mean Corpuscular Volume 100.5 fL (80-94); Mean Platelet Vol. 10.7 fl (6.2-12.0); Monocyte# 0.59 X10^3/uL; Monocyte% 6.9 % (0-10); NRBC Flagged by Analyzer 0 % (0-5); Neutrophil # 6.32 X10^3/uL (2.7-7.7); Neutrophil % 74.1 % (47-70); Platelet Count 362 K/mm3 (150-450); RBC Distribution Width CV 12.1 % (11.6-14.6); RBC Distribution Width SD 45.5 fl (35.1-43.9); Red Blood Count 4.24 M/mm3 (4.6-6.2); White Blood Count 8.5 K/mm3 (4.4-11.0)
[2020-10-27 08:06] LABS: International Normalized Ratio 1.1; Prothrombin Time (Protime)PT. 13.3 SECONDS (11.7-14.9)
[2020-10-27 08:07] LABS: Partial Thromboplast Time 30.1 Seconds (24.1-36.2)
[2020-10-27] MEDS: fentaNYL 100 MCG/2 ML Ampul IV (09:04)
[2020-10-27] MEDS: Midazolam 2 MG/2 ML Syringe IV (09:05)
--- NOTE | 2020-10-27 10:00 | ASPIGT_PTH ---
PATIENT: STEPHEN CHILDRESS LOC: [place] U#:[id number] AGE/SX: 80/M ROOM: RE10/27/[address]: Dr. Diane Eugene MD : 1945 BED: DIS: SPEC #: [id number] RECD: 10/27/20 10:23 STATUS: DARIUS REQ #: [id number] LEIGHANN: 10/27/20 10:[address]: Diane Eugene DEPT: SURGICAL PATHOLOGY RECD BY: Aixa Baker ENTERED: 10/27/20 10:25 SP TYPE: ASP RAD OTHR DR: Dr. Lobito Isaac MD Tissues: LYMPH NODE BIOPSY Procedures: FNA Specimen Adequacy Special Stain Group II Surgery Specimen Level IV Imprint (control) HEADER OPERATION: CT-guided right peritoneal lymph node PRE-OP DIAGNOSIS: Enlarged lymph nodes TISSUE SUBMITTED: Right peritoneal lymph node 18 gauge x7 MICROSCOPIC DIAGNOSIS Right peritoneal lymph node, CT-guided core biopsy: Atypical epithelioid cells are present. See comment. AM:richie 11/02/20 COMMENT The specimen is evaluated at the time of biopsy by Dr. Price. Immediate Evaluation = Atypical epithelioid cells present. Atypical epithelioid cells are noted in the core biopsy sections that contain fibrosis and benign histiocytic proliferation. Immunohistochemistry ([id number]) supports the above diagnosis, but does not elucidate the definitive origin of these atypical epithelioid cells. Clinical correlation is suggested. Case has been reviewed in consultation with Dr. Adler who concurs with the above diagnosis. IDC:ALBERT MICROSCOPIC DESCRIPTION Slides are reviewed. GROSS DESCRIPTION Received is one container labeled with the patient's name and not further designated. The specimen consists of multiple irregular and elongated fragments of light richardson soft tissue that in aggregate measure 1 x 0.5 x <0.1 cm. Physical Education Teacher sections are submitted in one cassette. / AM:richie 10/27/20 The rest of the specimen is submitted in cassette 2. / SJ:richie 10/29/20 TC:? CPT:
--- NOTE | 2020-10-27 10:45 | NURSING ---
D/C TEACHING REVIEWED WITH PT AND . BOTH VERBALIZED UNDERSTANDING. PT REFUSED WC TO LEAVE. STEADY GAIT TO ELEVATOR.
== END ==
PROVIDERS: PCP Family Medicine; Referring Provider Internal Medicine Hematology & Oncology; Visit Provider Internal Medicine Hematology & Oncology
DX: Z01.818 Encounter for other preprocedural examination (principal); R59.0 Localized enlarged lymph nodes; R91.8 Other nonspecific abnormal finding of lung field; J44.9 Chronic obstructive pulmonary disease, unspecified
CPT/HCPCS: 49180; 36415; 77012; 85025; 85610; 85730; 88172; 88305; 88313; 88341; 88342; 99155; 99156; 99157; J7040

== ENCOUNTER 2020-12-03 07:28 | Day surgery (SDC) | payer MEDICARE, SELFPAY ==
[2020-11-24 12:52] VITALS: BMI 29.0
--- NOTE | 2020-11-29 12:49 | EKG12_ITS ---
Test Reason : PREOP Blood Pressure : / mmHG Vent. Rate : 068 BPM Atrial Rate : 068 BPM P-R Int : 148 ms QRS Dur : 090 ms QT Int : 392 ms P-R-T Axes : 047 060 046 degrees QTc Int : 416 ms Sinus rhythm with occasional Premature ventricular complexes Otherwise normal ECG Confirmed by MARY ARIAS, CHRISTINE ([id number]), film and video editor JENNIFER BROWN ([id number]) on 12/02/2020 11:22:42 AM Referred By: Chris Zarate Confirmed By:CHRISTINE HERNANDEZ MD
--- NOTE | 2020-12-03 | MASS_PTH ---
PATIENT: STEPHEN CHILDRESS LOC: [facility] U#:[id number] AGE/SX: 75/M ROOM: RE12/03/[address]: Dr. Chris Zarate MD : 1945 BED: DIS: 12/03/2020 SPEC #: [id number] RECD: 12/03/20 10:22 STATUS: DARIUS REQ #: [id number] LEIGHANN: 12/03/20 00:[address]: Chris Zarate DEPT: SURGICAL PATHOLOGY RECD BY: Alma Donato ENTERED: 12/03/20 11:22 SP TYPE: Mass OTHR DR: Dr. Lobito Isaac MD Tissues: Neck, NOS Procedures: Special Stain Group II Surgery Specimen Level IV Imprint (control) HEADER OPERATION: Radical neck biopsy/excision lymph nodes, open deep cervical nodes PRE-OP DIAGNOSIS: Cervical lymphadenopathy; retroperitoneal adenopathy; abnormal radionuclide scan TISSUE SUBMITTED: Level IV left neck mass MICROSCOPIC DIAGNOSIS Left neck mass, biopsy: Metastatic non-small cell carcinoma. See comment. AM:richie 12/07/2020 COMMENT The specimen is evaluated at the time of crush prep by Dr. Price. Immediate Evaluation (crush prep smears) = Atypical epithelioid cells present. Tissue submitted for FLOW for lymphoma protocol. Case has been reviewed in consultation with Dr. Adler who concurs with the above diagnosis. IDC:LABERT Immunohistochemistry ([id number]) supports the above diagnosis and favors a renal primary. FLOW analysis is negative for lymphoma ([facility] Report viewable in EMR). Clinical correlation is suggested. This case was reviewed and diagnosis discussed with Dr. Eugene on 12/08/20. Case has been reviewed in consultation with Dr. Adler who concurs with the above diagnosis. IDC:SJ MICROSCOPIC DESCRIPTION Slides are reviewed. GROSS DESCRIPTION Received fresh for touch prep preparation labeled with the patient's name is a specimen designated level IV left neck mass. The specimen consists of an ovoid fragment of pink-richardson soft tissue measuring 2.3 x 2 x 1.8 cm. Harvesting Supervisor portion is submitted for flow cytometry analysis. The remainder of the specimen is serially sectioned and totally submitted in three cassettes. Two touch prep smears are prepared. / AM:richie 12/03/20 TC:0 [facility]: [id number], [id number] ADDENDUM ADDENDUM ADDENDUM ADDENDUM 12/08/2020 12:51 ADDENDUM 12/13/2020 13:09 ADDENDUM 12/08/2020 12:51 ADDENDUM 12/08/2020 12:51 ADDENDUM 12/08/2020 12:51 ADDENDUM 12/08/2020 12:51 Tumor cells have a clear cell morphology. AM:richie 12/08/2020 Case is reviewed in consultation with Dr. Varner of [employer]. Additional stains (PAX-8 and carbonic anhydrase) are positive in tumor cells. Tumor is immunopositive overall for RCC, PAX-8, carbonic anhydrase and CD10 supporting a metastatic renal cell (clear cell) carcinoma. The complete consultative report is viewable in patient's EMR. Clinical correlation necessary. AM:richie 12/13/2020 Case has been reviewed in consultation with Dr. Adler who concurs with the above diagnosis. IDC:ALBERT
--- NOTE | 2020-12-03 | IMM_PTH ---
PATIENT: STEPHEN CHILDRESS LOC: [facility] U#:[id number] AGE/SX: 75/M ROOM: RE12/03/[address]: Dr. Chris Zarate MD : [id number] BED: DIS: 12/03/2020 SPEC #: [id number] RECD: 12/06/20 12:19 STATUS: SOUT REQ #: [id number] LEIGHANN: 12/03/20 00:[address]: Chris Zarate DEPT: IMMUNOHISTOCHEMISTRY RECD BY: Alma Donato ENTERED: 12/06/20 12:26 SP TYPE: IMMUNO OTHR DR: Dr. Lobito Isaac MD Tissues: Neck, NOS Procedures: Synapto (add) RCC (add) Thyroglobulin (add) NAPSIN A (add) Bridger Ret (add) CD10 (add) CD138 (add) CD30 (add) CD45 (add) CD56 (add) CEA (add) CHROMO (add) CK14 (add) CK19 (add) CK20 (add) CK5-6 (add) CK7 (add) CK8 (add) MANNING-2 (add) FIDEL (add) HEP PAR (add) KI-67 (add) P53 (add) TTF1 (add) Vimentin (add) 34BE12 (add) NEUROFIL (add) Pankeratin (initial) MELAN-A (add) P40 (add) CD44 (add) PSAP (add) NSE (add) S-100 (add) PHYSICIAN & INSTITUTION [facility] [address] [place] [id number] SPECIMEN INFORMATION: Tissue Source: Left neck mass Clinical Info: Cervical lymphadenopathy; retroperitoneal adenopathy; abnormal radionuclide scan Specimen Number: [id number] #1 CPT code: 16751, 24401 x33 METHODOLOGY: Deparaffinized sections of prefer/formalin-fixed tissue or PAP/DQ stained slides are incubated with monoclonal/polyclonal antibodies/oligonucleotide probes. Localization is made via biotin free immunoperoxidase method. Appropriate controls are performed and reacted as expected. Results on target cell population are indicated in the following table: RESULTS: ANTIBODY / CLONE RESULT Block 1 AE1-3 (AE1/AE3/PCK26) positive CK7 (OV-TL12/30) positive CK8 (23haolC54) positive CK20 (KS20.8) negative MANNING-2 (SP21) negative CD45 (RP2/18) negative CD138 (B-A38) positive, focal (epithelial) Vimentin (V9) positive 34BE12 (34BE12) negative S-100 (4C4.9) negative CK19 (A53-B/A2.26) positive TTF-1 (8G7G3/1) negative Napsin A (Rabbit Polyclonal) negative HepPar (OCh1E5) negative RCC (PN-15) positive PSAP (PASE/4LJ) negative Thyro (2H11+6E1) negative CALRET (polyclonal) negative anti-CD44 (SP37) positive CK5-6 (D5 & 1684) negative CK14 (LL002) negative P40 (BC28) negative FIDEL (E29) positive, focal CEA (11-7/TF-3HB-1) positive, focal P53 (DO-7) positive, 2% Ki-67 (30-9) positive, low Melan A (A103) negative Neurofil (2F11) negative CD56 (123C3.D5) negative Chromo (LK2H10) negative Synapto (polyclonal) negative NSE Neuron Specific Enolase positive, focal CD10 (56C6) positive CD30 (Felix-H2) negative These tests were developed and their performance characteristics determined by [facility]. They may not have been cleared or approved by the U.S. Food and Drug Administration. The FDA has determined that such clearance or approval is not necessary. The above immunohistochemical/dualISH markers are ordered and reviewed by the Pathologist. INTERPRETATION: Left neck mass, biopsy: Metastatic non-small cell carcinoma. See comment. AM:richie 12/08/2020 Comment: The IHC profile favors a renal primary. Clinical correlation is necessary. Case has been reviewed in consultation with Dr. Adler who concurs with the above diagnosis. IDC:[id number]
[2020-12-03] MEDS: Lactated Ringers 1,000 ML 100 ML IV (07:56)
[2020-12-03 07:57] VITALS: BP 133/79; PULSE 85; RESP 16; TEMP 36.7; O2SAT 93; BMI 28.3
--- NOTE | 2020-12-03 10:51 | PCM.OPRPT ---
Problem List (1) Lymphadenopathy, generalized Status: Acute Report of Operation Date of Procedure: 12/03/20 Pre-Operative Diagnosis: PET avid left level 4 cervical lymph node Post-Operative Diagnosis: Same Surgery/Procedure Performed:: Deep cervical lymph node biopsy Description of Surgical Findings:: Gomez is a 75-year-old male who had presented to the emergency department with flank pain was found to have a retroperitoneal mass. Attempted biopsy was nondiagnostic and PET scan showed an additional PET avid lymph node in the low anterior left neck and excisional biopsy for definitive evaluation was requested by oncology. The patient was counseled regarding risk of coronavirus exposure in this time. Is agreeable appropriate to proceed to allow for further investigation of his suspected malignancy. The risks, alternatives, potential complications, and benefits were discussed at length and any questions answered to the patient and/or caregiver's satisfaction. Witnessed informed consent was obtained in the office, and the patient and/or caregiver was agreeable to proceed. Procedure went as follows: The patient was identified in preoperative holding and brought to the operating room, placed under general anesthesia and intubated. When appropriate anesthesia was obtained, the left neck was prepped and draped in usual sterile fashion. The planned incision site was then injected with 1% lidocaine with 100,000 epinephrine for a total of 2 mL. After allowing for vasoconstriction, a skin incision 2 fingerbreadths below the angle of the mandible was then created to 15 blade scalpel through the skin subcutaneous tissues and platysma. Dissection was then carried out along the sternocleidomastoid. Within the deep left cervical neck. The vascular sheath was then entered where a large firm multilobulated cluster of matted lymph nodes approximately 3 x 5 x 2 cm in size. This was dissected free of the surrounding tissue using bipolar cautery for hemostasis. The superiormost node cluster was then removed and sent for pathologic specimen. The wound was then closed deeply with interrupted 3-0 Vicryl sutures closing the space and reapproximating the platysma and subcutaneous tissues. A running 5-0 Monocryl subcuticular stitch was then placed to close the skin followed by Cavilon and Steri-Strips. The patient was then returned to anesthesia, was revived and extubated without complication having tolerated the procedure well. Type of Anesthesia:: General Anesthesiologist: Reza Ruano Special Medications: none Specimen's removed: left level 4 cervical lymph node Estimated Blood Loss (mL): 0 mL Fluids Replaced: 400 mL Grafts/Implants Used: none - Complications none - Admit VTE Documentation VTE Present on Admission: No VTE Mechan Device Prophylaxis: SCD's VTE Pharm Prophylaxis ordered?: No
[2020-12-03 10:56] VITALS: BP 114/67; BP 133/79; PULSE 75; RESP 16; TEMP 36.2; O2SAT 98
--- NOTE | 2020-12-03 10:57 | DCINST_ITS ---
- Discharge Diagnoses Current Active Problems: Current Active and Chronic Problems (Last Reviewed 11/24/20 @ 12:52 by Jaquelin Miramontes) Lymphadenopathy, generalized (Acute) You will use the following diet at home:: Regular Discharge Activity: Return to Normal Activity, May not drive while taking narcotic pain medications. Call your doctor if your incision/area has: Foul Smelling Discharge, Swelling at the incision site Call your doctor if you observe: Fever of 101 or Higher, Shortness of breath, Uncontrolled pain Allergies/Adverse Reactions: Allergies celecoxib [From Celebrex] Allergy (Mild, Verified 12/03/20 07:37) Swelling meloxicam Allergy (Mild, Verified 12/03/20 07:37) Swelling Medications to take at Discharge Albuterol Inhaler [Ventolin Hfa] 1 - 2 puff INHALATION Q6H PRN PRN 02/07/14 Azelastine HCl [Astelin] 2 spray NASAL BID 02/07/14 Fluticasone 0.05% [Flonase Nasal [place]] 2 spray NASAL BID 02/07/14 Omeprazole [Prilosec] 40 mg PO DAILY 02/07/14 Triamcinolone 0.025% Cream [Kenalog] 1 applic TOPICAL DAILY PRN 02/07/14 Atorvastatin Calcium [Lipitor] 20 mg PO QHS 11/10/17 Losartan/Hydrochlorothiazide [Losartan-Hctz 100-25 mg Tab] 1 tab PO QHS 11/10/17 Metoprolol(XL)Succ [Toprol Xl (Beta [place])] 100 mg PO DAILY 11/10/17 Budesonide/Formoterol 160/4.5 [Symbicort 160/4.5 Mcg Inhaler (SP)] 2 puff INHALATION BID 10/14/20 Icosapent Ethyl [Vascepa] 2 gm PO BID 10/14/20 Levocetirizine Dihydrochloride [Xyzal] 5 mg PO DAILY 10/14/20 Cholecalciferol (Vitamin D3) [Vitamin D3] 25 mcg PO BID 11/29/20 Cyanocobalamin [Vitamin B12] 1,000 mcg PO BID 11/29/20 Niacin 500 mg PO DAILY 11/29/20 Ubidecarenone [Coq-10] 200 mg PO DAILY 11/29/20 Vit C/E/Zn/Coppr/Lutein/Zeaxan [Preservision Areds 2 Softgel] 1 ea PO DAILY 11/29/20 Zinc 50 mg PO DAILY 11/29/20 Primary Care Physician: Lobito Isaac MD [Primary Care Provider] - Test Results: Test results from this visit will be discussed in further detail at your follow- up appointment, if applicable. Please Follow Up With: Chris Zarate MD When: 2 weeks
[2020-12-03 11:00] VITALS: BP 114/69; BP 133/79; PULSE 78; RESP 16; O2SAT 99
[2020-12-03 11:15] VITALS: BP 126/73; BP 133/79; PULSE 75; RESP 16; O2SAT 96
[2020-12-03 11:30] VITALS: BP 118/80; BP 125/76; BP 133/79; PULSE 72; PULSE 75; RESP 16; TEMP 36.4; O2SAT 94; O2SAT 97
[2020-12-03 12:32] VITALS: BP 133/79; BP 143/76; PULSE 73; RESP 16; TEMP 36.6; O2SAT 96
== END 2020-12-03 12:48 | disposition home or self-care (01) ==
LOC: SDC 07:30 → AC 07:31
PROVIDERS: PCP Family Medicine; Referring Provider Otolaryngology; Visit Provider Otolaryngology
PROC: (CPT 38724; principal; 2020-12-03 08:45)
DX: C77.0 Secondary and unspecified malignant neoplasm of lymph nodes of head, face and neck (principal); C64.9 Malignant neoplasm of unspecified kidney, except renal pelvis; Z20.822 Contact with and (suspected) exposure to COVID-19; I10 Essential (primary) hypertension; E78.5 Hyperlipidemia, unspecified; J45.909 Unspecified asthma, uncomplicated; M19.90 Unspecified osteoarthritis, unspecified site; K21.9 Gastro-esophageal reflux disease without esophagitis; Z79.899 Other long term (current) drug therapy; Z86.718 Personal history of other venous thrombosis and embolism; Z85.828 Personal history of other malignant neoplasm of skin
CPT/HCPCS: 38510; 87426; 88305; 88313; 88341; 88342; 93005; C9803; J7120

== ENCOUNTER → 2020-12-10 12:08 | Outpatient (CLI) | payer MEDICARE, SELFPAY ==
[2020-12-03 07:57] VITALS: BMI 28.3
--- NOTE | 2020-12-10 12:09 | US_ITS ---
STUDY: RENAL ULTRASOUND - COMPLETE REASON FOR EXAM: Male, 75 years old. ABNORMAL CONTOUR OF RIGHT KIDNEY ON CT -- LYMPHADENOPATHY TECHNIQUE: Ultrasound evaluation of the kidneys was performed with real-time and static moncada-scale imaging. COMPARISON: Comparison is made with prior CT scan of the abdomen dated 10/14/2020. FINDINGS: RIGHT KIDNEY: Normal location of the right kidney, which is normal in size. The right kidney measures 10.27 x 4.4 cm x 4.4 cm. There is a normal cortex of the right kidney. The renal cortex measures 1.2 cm. There is a 2.1 cm x 2.4 cm x 2.3 cm hypoechoic solid nodule in the upper pole of the right kidney. There are no right renal calculi. There is no right hydronephrosis. DISTAL RIGHT URETER: There is non-visualization of the distal right ureter. There is no demonstrated right ureterovesical junction calculus. There is a visualized right ureteral jet. LEFT KIDNEY: Normal location of the left kidney, which is normal in size. The left kidney measures 10.1 cm x 4.3 cm x 4.1 cm. There is a normal cortex of the left kidney. The renal cortex measures 1.0 cm. There is a 1.5 cm x 1.7 cm x 1.6 cm cyst in the lower pole. There are no left renal calculi. There is no left hydronephrosis. DISTAL LEFT URETER: There is non-visualization of the distal left ureter. There is no demonstrated left ureterovesical junction calculus. There is a visualized left ureteral jet. BLADDER: The distended urinary bladder has a volume of 125.2 ml. There is a normal wall thickness of the distended urinary bladder. There is no demonstrated mass within the urinary bladder. There are no demonstrated bladder calculi. US/Kidney and Bladder IMPRESSION: 2.1 cm x 2.4 cm x 2.3 cm solid nodule in the upper pole of the right kidney. A neoplastic process should be ruled out. Electronically Signed: Roberto Carlos Street MD at 13:29 EST , Service support ,
== END ==
PROVIDERS: PCP Family Medicine; Referring Provider Internal Medicine Hematology & Oncology; Visit Provider Internal Medicine Hematology & Oncology
DX: R59.1 Generalized enlarged lymph nodes (principal); R91.8 Other nonspecific abnormal finding of lung field
CPT/HCPCS: 76770

== ENCOUNTER → 2020-12-24 06:54 | Outpatient (CLI) | payer MEDICARE, SELFPAY ==
[2020-12-16 14:36] VITALS: BMI 27.6
[2020-12-23 14:56] VITALS: BMI 28.4
--- NOTE | 2020-12-24 07:09 | CT_ITS ---
STUDY: CT CHEST WITH CONTRAST REASON FOR EXAM: Male, 75 years old. 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 Multiplanar coronal and sagittal images were reformatted. Individualized dose optimization techniques were used for this CT. COMPARISON: None. FINDINGS: Bilateral supraclavicular lymphadenopathy more prominent on the left side. Right-sided portacatheter with the tip in the superior vena cava. Mild degree of emphysematous changes. Mild degree of linear scarring at the lung bases. Tiny bilateral pleural effusions. There are calcifications of the coronary arteries. Enlarged mediastinal lymphadenopathy involving the superior mediastinum as well as the aortopulmonary window, precarinal and subcarinal spaces. Enlarged bilateral hilar lymphadenopathy. Normal enhanced pulmonary arteries. Normal aorta arch and descending thoracic aorta. There are multi-level degenerative changes of the thoracic spine. There is no demonstrated abnormality of the visualized upper abdomen. CT/Chest WITH Contrast IMPRESSION: Enlarged mediastinal and bilateral hilar lymphadenopathy. Small bilateral pleural effusions. Mild degree of emphysematous changes with mild scarring at the lung bases. Electronically Signed: Roberto Carlos Street MD at 8:21 EST , Service support ,
--- NOTE | 2020-12-24 07:09 | CT_ITS ---
STUDY: CT ABDOMEN AND PELVIS WITH CONTRAST REASON FOR EXAM: Male, 75 years old. 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 IV 100mL Isovue-300 was administered. Sagittal and coronal images were reconstructed. Individualized dose optimization techniques were used for this CT. COMPARISON: Comparison is made with prior study dated 10/14/2020. FINDINGS: Tiny bilateral pleural effusions with bibasilar scarring. Enlarged bilateral hilar lymphadenopathy. Coronary artery calcification. Normal liver. Normal gallbladder and extrahepatic biliary system. Normal spleen. Normal pancreas. Normal bilateral adrenal glands. There is a 2.2 cm x 2.2 cm hypodense nodule in the posterior aspect of the upper pole of the right kidney. A neoplastic process should be ruled out. Normal left kidney. Normal visualized stomach. Normal small intestine. There are multiple colonic diverticula consistent with diverticulosis. The appendix is visualized and appears normal. There is diffuse atherosclerotic calcification of the abdominal aorta, without a demonstrated aneurysm. Normal inferior vena cava. There is retroperitoneal lymphadenopathy with enlarged nodes greater than 10-15mm in the short axis. This is essentially unchanged. Diffuse circumferential wall thickening of the urinary bladder although the bladder is not adequately distended. Small amount of fluid is seen in the pelvis. Small bilateral inguinal hernias containing fat. There are diffuse degenerative changes of the visualized lumbar spine. CT/Abdomen/Pelvis W IV Cont ONLY IMPRESSION: Stable retroperitoneal lymphadenopathy. 2.2 cm x 2.2 cm hypodense mass in the posterior upper pole of the right kidney. Small amount of free fluid in the pelvis. Diffusely thickened urinary bladder wall. Tiny bilateral pleural effusions with bibasilar scarring. Electronically Signed: Roberto Carlos Street MD at 8:24 EST , Service support ,
--- NOTE | 2020-12-24 07:09 | CT_ITS ---
STUDY: CT SOFT TISSUE NECK WITH CONTRAST REASON FOR EXAM: Male, 75 years old. 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 High resolution transaxial imaging was performed following intravenous administration of IV 100mL Isovue-300. Sagittal and coronal images were reconstructed. Individualized dose optimization techniques were used for this CT. COMPARISON: None. FINDINGS: There is evidence of a supraclavicular lymphadenopathy bilaterally more prominent on the left side. The largest mass in the left supraclavicular region measures 2.9 cm x 2.9 cm. There is also evidence of lymphadenopathy in the superior mediastinum as seen on the limited imaging of the chest. Normal bilateral parotid glands. Normal bilateral car cleaning supervisor spaces. Normal bilateral parapharyngeal spaces. Normal bilateral carotid spaces. Normal bilateral sublingual and submandibular glands and spaces. Normal visualized nasopharynx. Normal retropharyngeal space. Normal perivertebral space. Normal visualized bilateral faucial tonsils. The visualized tongue, tongue base and oropharynx are normal. The visualized cervical lymph nodes (levels I-) are within normal size limits, and maintain normal morphology. There is no demonstrated solid or cystic mass lesion. There is no abnormal contrast enhancement. Normal epiglottis, bilateral vallecula and hypopharynx. The pre-epiglottic and paraglottic adipose spaces are normal. Normal visualized bilateral piriform sinuses, aryepiglottic folds, vocal cords, and arytenoid-cricoid articulations. Normal subglottic trachea. Normal bilateral lobes of the thyroid gland. Normal visualized paranasal sinuses. There is multilevel degenerative changes of the cervical spine. CT/Soft Tissue Neck WITH Contrast IMPRESSION: Enlarged bilateral supraclavicular lymphadenopathy more prominent on the left side. Limited visualization of the upper chest shows evidence of mediastinal lymphadenopathy as well. Electronically Signed: Roberto Carlos Street MD at 8:17 EST , Service support ,
[2020-12-24 07:59] LABS: Anion Gap 7 (5-15); BUN 37 mg/dL (7-18); BUN/Creat Ratio 27.6 RATIO (10-20); Chloride 107 mmol/L (98-107); Creatinine, Serum 1.34 mg/dL (0.70-1.30); EST Glomerular Filtration Rate 55 mL/min (>60); Est Glom Filt Rate - Afr Amer 67 mL/min (>60); Glucose 85 mg/dL (74-106); Potassium 3.4 mmol/L (3.5-5.1); Sodium Level 140 mmol/L (136-145)
== END ==
PROVIDERS: PCP Family Medicine; Referring Provider Internal Medicine Hematology & Oncology; Visit Provider Internal Medicine Hematology & Oncology
DX: C64.1 Malignant neoplasm of right kidney, except renal pelvis (principal); C77.0 Secondary and unspecified malignant neoplasm of lymph nodes of head, face and neck; C77.1 Secondary and unspecified malignant neoplasm of intrathoracic lymph nodes; C77.9 Secondary and unspecified malignant neoplasm of lymph node, unspecified; R91.8 Other nonspecific abnormal finding of lung field
CPT/HCPCS: 36415; 70491; 71260; 74177; 80048; J7040; Q9967

== ENCOUNTER 2020-12-27 10:37 | Day surgery (SDC) | payer MEDICARE, SELFPAY ==
[2020-12-22 08:23] VITALS: BMI 28.4
--- NOTE | 2020-12-23 08:44 | NURSING ---
During pt's PAT phone call, this RN spoke with Simin in Imaging. Pt has CT scan at 0730 and 0800 on 12/24/20. Simin states COVID test can be done at that same time. Pt informed and verbalizes understanding.
[2020-12-24 08:12] VITALS: BMI 28.1
[2020-12-27] VITALS (8 sets, daily range): BP systolic 89–118; BP diastolic 35–77; PULSE 70–75; RESP 14–18; TEMP 36.3–36.6; O2SAT 92–99; BMI 28.0
--- NOTE | 2020-12-27 06:00 | HP_ITS ---
Intake Vital Signs 12/22/20 Height 5 ft 8 in 12/22/20 Weight: 187 lb 12/22/20 BMI 28.4 12/22/20 BP 118/78 12/22/20 Blood Pressure Location Rt brachial 12/22/20 Position Sitting 12/22/20 Respiration 18 12/22/20 Pulse 87 12/22/20 Pulse Source Monitor 12/22/20 Temp 97.2 F L 12/22/20 Temp Source Temporal 12/22/20 Pulse Oximetry (%) 97 12/22/20 Oxygen Delivery Method room air Intake Visit Reasons: Consult Port Placement Chief Complaint: port placement Organisation And Methods Analyst Required: No Accompanied by: Is patient in pain?: No Allergies celecoxib [From Celebrex] Allergy (Mild, Verified 12/22/20 08:27) Swelling meloxicam Allergy (Mild, Verified 12/22/20 08:27) Swelling adhesive tape Allergy (Verified 12/22/20 08:27) NEEDS FOLLOW-UP Medications Albuterol Inhaler [Ventolin Hfa] 1 - 2 puff INHALATION Q6H PRN PRN 02/07/14 [History Confirmed 12/22/20] Azelastine HCl [Astelin] 2 spray NASAL BID 02/07/14 [History Confirmed 12/22/20] Fluticasone 0.05% [Flonase Nasal [place]] 2 spray NASAL BID 02/07/14 [History Confirmed 12/22/20] Omeprazole [Prilosec] 40 mg PO DAILY 02/07/14 [History Confirmed 12/22/20] Triamcinolone 0.025% Cream [Kenalog] 1 applic TOPICAL DAILY PRN 02/07/14 [History Confirmed 12/22/20] Atorvastatin Calcium [Lipitor] 20 mg PO QHS 11/10/17 [History Confirmed 12/22/20] Losartan/Hydrochlorothiazide [Losartan-Hctz 100-25 mg Tab] 1 tab PO QHS 11/10/17 [History Confirmed 12/22/20] Metoprolol(XL)Succ [Toprol Xl (Beta [place])] 100 mg PO DAILY 11/10/17 [History Confirmed 12/22/20] Budesonide/Formoterol 160/4.5 [Symbicort 160/4.5 Mcg Inhaler (SP)] 2 puff INHALATION BID 10/14/20 [History Confirmed 12/22/20] Icosapent Ethyl [Vascepa] 2 gm PO BID 10/14/20 [History Confirmed 12/22/20] Levocetirizine Dihydrochloride [Xyzal] 5 mg PO DAILY 10/14/20 [History Confirmed 12/22/20] Cholecalciferol (Vitamin D3) [Vitamin D3] 25 mcg PO BID 11/29/20 [History Confirmed 12/22/20] Cyanocobalamin [Vitamin B12] 1,000 mcg PO BID 11/29/20 [History Confirmed 12/22/20] Niacin 500 mg PO DAILY 11/29/20 [History Confirmed 12/22/20] Ubidecarenone [Coq-10] 200 mg PO DAILY 11/29/20 [History Confirmed 12/22/20] Vit C/E/Zn/Coppr/Lutein/Zeaxan [Preservision Areds 2 Softgel] 1 ea PO DAILY 11/29/20 [History Confirmed 12/22/20] Zinc 50 mg PO DAILY 11/29/20 [History Confirmed 12/22/20] Acetaminophen [Tylenol] 500 mg PO Q4H PRN PRN tab 12/03/20 [Rx Confirmed 12/22/20] Azithromycin [Zithromax] 250 mg PO DAILY 12/20/20 [History Confirmed 12/22/20] Lidocaine/Prilocaine [Lidocaine-Prilocaine Cream] 1 applic TP DAILY PRN PRN 30 Days #1 tube 12/20/20 [Rx Confirmed 12/22/20] Prednisone 1 mg PO DAILY 12/20/20 [History Confirmed 12/22/20] PFSH Medical History CRF (chronic renal failure) (Chronic) Macrocytosis (Chronic) Dyslipidemia (Chronic) Hypertension (Chronic) Degenerative joint disease of spine (Chronic) Asthma (Chronic) GERD (gastroesophageal reflux disease) (Chronic) Cancer of right kidney (Acute) 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 Yonatan Ma MD) Smoking Status: Never smoker HPI HPI HPI: STEPHEN CHILDRESS, is a 75 M who presents to the office today for HPI HPI Surgical H&P: Yes HPI: STEPHEN CHILDRESS, is a 75 M who presents to the office today for Port placement. The patient has kidney cancer with metastasis and requires port for chemotherapy. ROS General General: Yes weight change; no appetite, fatigue, colon cancer, breast cancer or weakness HEENT HEENT: Yes swollen glands; no difficulty swallowing, eye injury, eye surgery or hoarseness Endo Endocrine: No thyroid disease, diabetes mellitus, thyroid cancer, Hair loss, heat intolerance or cold intolerance Skin Skin: Yes rash and changing moles Breast Breast: No left breast lump, right breast lump, nipple discharge, breast pain, abnormal mammogram, abnormal US or breast enlargement Musc Musculoskeletal: Yes back problems and arthritis; no rheumatoid arthritis, gout or joint pain Cardio Cardiovascular: Yes high blood pressure; no murmur, pacemaker, heart disease, atrial fibrillation, heart attack, heart stent, palpitations, shortness of breat with exertion or chest pain Psych Psychiatric: No depression, anxiety or hearing voices Resp Respiratory: No shortness of breath, No sleep apnea, Yes cough, No COPD, Yes asthma, No emphysema, No wheezing Gastro Gastrointestinal: No abdominal pain, No nausea or vomiting, No diarrhea, No constipation, No blood in stool, Yes acid reflux, Yes hemorrhoids, No ulcers, No gallbladder problem, No black,tarry stools [place] Hematologic: No blood thinners, No blood disorders, Yes bleeding, No anemia, No blood clots Neuro Neurologic: No system reviewed and no additional complaints, except as docu, No as per HPI, No abnormal walking, No abnormal hearing, No abnormal movements, No abnormal speech, No behavioral changes, No burning sensations, No confusion, No seizure-like activity, No unsteadiness, No dizziness, No localized weakness, No frequent falls, No headache(s), No lack of coordination, No loss of vision, No memory loss, No numbness, No other visual disturbances, No radiating pain, No restless legs, No sensory deficit, No fainting, No tingling, No tremor(s), No weakness, No other Exam Const General: cooperative Orientation: alert, oriented x3 HENMT Head: normal to inspection Ears: hearing grossly normal bilaterally Eyes General: appearance normal, both eyes and all related structures Visual Barry: normal visual barry by confrontation Neck Neck: normal visual inspection Chest Chest palpation & inspection: normal inspection of the chest Breast Palpation: No nipple discharge Resp Effort & Inspection: normal respiratory effort Auscultation: clear to auscultation bilaterally Cardio Rate: regular rate Rhythm: regular rhythm Heart Sounds: no murmurs GI Inspection: non-distended Palpation: soft, nontender Musc Cervical Spine: normal cervical lordosis, cervical ROM normal Skin General: no rashes or lesions noted Neuro General: alert, oriented x3 Cranial Nerves: CN's II-XI intact bilaterally Cognition: normal cognition Extrem General: normal to inspection, full ROM Psych Appearance: grossly normal Affect: normal affect Assessment & Plan Problems 1. Cancer of right kidney C64.1 2. Encounter for insertion of venous access port Z45.2 Plan I discussed right chest port placement with the patient in detail. I discussed the risks including but not limited to bleeding, infection, pneumothorax, line infection or DVT. The patient understands the risks and is well to proceed. I have asked him to stop his fish oil for a few days prior to surgery. We discussed the current risks associated with COVID-19. While it is understood that there is a community spread of COVID-19, the risk of esperanza COVID-19 while at [facility] ([facility]) is very low; however, the risk cannot be completely mitigated because of the community spread of the disease. We discussed in detail the risk of exposure to and/or potential harm posed by the COVID-19 virus with having a surgery/procedure at this time versus the risk of delaying the surgery/procedure. It is not possible to know either the risk of delaying the surgery or procedure or chance of getting an infection with perfect accuracy, but a joint decision was made to proceed at this time with the scheduled surgery/procedure as indicated on the consent form. Patient was notified that we will need to comply with any screening or testing [facility] wishes to perform or that surgery may be delayed for any positive results. Yonatan Ma MD Pager: [facility], [address] [place] [address] Office: Coding Level of Care Code Off vis,new,level 3 Diagnoses Cancer of right kidney C64.1 Encounter for insertion of venous access port Z45.2 I have re-examined the patient. There are no clinical changes since date of exam.
[2020-12-27] MEDS: Lactated Ringers 1,000 ML 100 ML IV (11:20)
[2020-12-27] MEDS: Cefazolin 2 GM in 0.9% Normal Saline 100 ML IV (11:42)
[2020-12-27] MEDS: Bupiv/Epi 0.5% Mpf 30 ML Vial (12:00)
--- NOTE | 2020-12-27 12:18 | RAD_ITS ---
STUDY: X-RAY CHEST REASON FOR EXAM: Male, 75 years old. POST PORT PLACEMENT TECHNIQUE: Single AP portable view of the chest. COMPARISON: None. FINDINGS: A right-sided portacatheter has been placed. The tip is in the midportion of the superior vena cava. Mild increased markings at the lung bases with blunting of both cost phrenic angles. Normal size heart. Normal mediastinum and kathy. Normal visualized pulmonary arteries. Normal visualized aortic arch and descending thoracic aorta. There are diffuse degenerative changes of the visualized thoracic spine. Normal visualized ribs, clavicles, and shoulders. There is no demonstrated abnormality of the visualized soft tissue structures of the upper abdomen. RAD/CXR for Line Placement IMPRESSION: The tip of the right portacatheter is in the midportion of the superior vena cava. Electronically Signed: Roberto Carlos Street MD at 12:31 EST , Service support ,
--- NOTE | 2020-12-27 12:19 | PCM.OPRPT ---
Problem List (1) Encounter for adjustment and management of vascular access device Status: Acute (2) Cancer of right kidney Status: Acute Report of Operation Date of Procedure: 12/27/20 Pre-Operative Diagnosis: Kidney cancer with need for vascular access port Post-Operative Diagnosis: Same Surgery/Procedure Performed:: Ultrasound and fluoroscopy guided right chest port placement utilizing right IJ Description of Procedure: After obtaining informed consent patient was brought back to the operating room MAC anesthesia was induced and the right chest and neck were prepped in normal sterile fashion. Ultrasound was used to evaluate both IJs and the right IJ was selected. Next, using a needle, the right IJ was accessed and a guidewire was passed on into the superior vena cava under fluoroscopy guidance. A small incision was made over the puncture site and the dilator introducer was placed over the guidewire. Next this was capped and the pocket was made for the port. 1% lidocaine with epinephrine was injected in the proposed port site. An incision was made with scalpel. Electrocautery was used to make a pocket under the skin and subcutaneous tissue. Hemostasis was obtained. Next, the catheter was tunneled up to the neck incision site and placed through the introducer. The peel-away introducer was removed and the position of the catheter was confirmed on fluoroscopy. Next, the catheter was trimmed and attached to the port with the locking device. Interrupted 2-0 Vicryl sutures were used to anchor the port to the chest wall and then the port was placed inside the pocket. The pocket was then flushed with saline and the port irrigated with saline. There was good blood return and the port flushed easily. Next, heparin was injected into the port. The skin was closed with subcutaneous interrupted 3-0 Vicryl sutures. A single 3-0 Vicryl sutures placed under the skin at the neck incision site. The port was then accessed and left accessed and was flushed with saline and heparin. Patient tolerated procedure well, was taken to PACU in stable condition. Chest x-ray will be obtained. Grafts/Implants Used: 8 [employer] PowerPort - Admit VTE Documentation VTE Mechan Device Prophylaxis: SCD's
--- NOTE | 2020-12-27 12:22 | DCINST_ITS ---
Discharge Diet: No Restrictions - Pain medication may cause nausea. You should typically eat light foods as you take your pain medication. Discharge Activity: Return to Normal Activity, May Shower - with your bandage in place in 1-2 days after surgery. DO NOT SHOWER WHEN YOUR PORT IS ACCESSED. Call your doctor if your incision/area has: Continuous Slow Oozing, Sudden Increased Bleeding, Increased Pain/ Swelling, Increased Redness Call your doctor if you observe: Fever of 101 or Higher Remove Dressing in (days):: 3 - When you remove the bandage, leave the steri- strips intact until they fall off. Allergies/Adverse Reactions: Allergies celecoxib [From Celebrex] Allergy (Mild, Verified 12/24/20 08:16) Swelling meloxicam Allergy (Mild, Verified 12/24/20 08:16) Swelling adhesive tape Adverse Reaction (Mild, Verified 12/27/20 10:59) Skin Tears very easily Tears skin Medications to take at Discharge Albuterol Inhaler [Ventolin Hfa] 1 - 2 puff INHALATION Q6H PRN PRN 02/07/14 Azelastine HCl [Astelin] 2 spray NASAL BID 02/07/14 Fluticasone 0.05% [Flonase Nasal [place]] 2 spray NASAL BID 02/07/14 Omeprazole [Prilosec] 40 mg PO DAILY 02/07/14 Triamcinolone 0.025% Cream [Kenalog] 1 applic TOPICAL DAILY PRN 02/07/14 Atorvastatin Calcium [Lipitor] 20 mg PO QHS 11/10/17 Losartan/Hydrochlorothiazide [Losartan-Hctz 100-25 mg Tab] 1 tab PO QHS 11/10/17 Metoprolol(XL)Succ [Toprol Xl (Beta [place])] 100 mg PO DAILY 11/10/17 Budesonide/Formoterol 160/4.5 [Symbicort 160/4.5 Mcg Inhaler (SP)] 2 puff INHALATION BID 10/14/20 Icosapent Ethyl [Vascepa] 2 gm PO BID 10/14/20 Levocetirizine Dihydrochloride [Xyzal] 5 mg PO DAILY 10/14/20 Cholecalciferol (Vitamin D3) [Vitamin D3] 25 mcg PO BID 11/29/20 Cyanocobalamin [Vitamin B12] 500 mcg PO BID 11/29/20 Niacin 500 mg PO QHS 11/29/20 Ubidecarenone [Coq-10] 200 mg PO DAILY 11/29/20 Vit C/E/Zn/Coppr/Lutein/Zeaxan [Preservision Areds 2 Softgel] 1 ea PO QHS 11/29/20 Zinc 50 mg PO DAILY 11/29/20 Acetaminophen [Tylenol] 500 mg PO Q4H PRN PRN tab 12/03/20 Lidocaine/Prilocaine [Lidocaine-Prilocaine Cream] 1 applic TP DAILY PRN PRN 30 Days #1 tube 12/20/20 DiphenhydrAMINE [Benadryl] 25 mg PO DAILY PRN PRN 12/23/20 Prednisone 20 mg PO DAILY 12/23/20 traMADol [Ultram (G)] 100 mg PO Q6H PRN PRN 12/23/20 Primary Care Physician: Lobito Isaac MD [Primary Care Provider] - Test Results: Test results from this visit will be discussed in further detail at your follow- up appointment, if applicable. Please Follow Up With: Yonatan Ma MD When: Please call to schedule 2 week follow up appointment. [phone]
== END 2020-12-27 13:34 | disposition home or self-care (01) ==
LOC: SDC 10:37 → AC 10:38
PROVIDERS: PCP Family Medicine; Referring Provider Surgery; Visit Provider Surgery
DX: Z45.2 Encounter for adjustment and management of vascular access device (principal); C64.1 Malignant neoplasm of right kidney, except renal pelvis; C77.0 Secondary and unspecified malignant neoplasm of lymph nodes of head, face and neck; C77.1 Secondary and unspecified malignant neoplasm of intrathoracic lymph nodes; Z20.822 Contact with and (suspected) exposure to COVID-19; I10 Essential (primary) hypertension; J45.909 Unspecified asthma, uncomplicated; K21.9 Gastro-esophageal reflux disease without esophagitis; Z79.51 Long term (current) use of inhaled steroids; Z79.52 Long term (current) use of systemic steroids; Z79.899 Other long term (current) drug therapy; Z86.718 Personal history of other venous thrombosis and embolism
CPT/HCPCS: 00532; 36561; 76937; 71045; 77001; 87426; C9803; C1788

== ENCOUNTER → 2021-01-11 11:13 | Outpatient (CLI) | payer MEDICARE, SELFPAY ==
[2021-01-11 10:19] VITALS: BMI 27.4
--- NOTE | 2021-01-11 11:15 | RAD_ITS ---
STUDY: X-RAY CHEST REASON FOR EXAM: Male, 75 years old. Asthma, dyspnea, cough. TECHNIQUE: PA and lateral chest. COMPARISON: December 27, 2020. CT chest December 24, 2020. FINDINGS: Right-sided port tip in the mid superior vena cava unchanged. Lungs are hyperinflated. Blunting of the costophrenic angles compatible small bilateral pleural effusions unchanged. Scattered areas of fibrosis. No pneumothorax. Normal size heart. Normal mediastinum and kathy. Extensive mediastinal lymphadenopathy identified on the prior CT chest, not appreciated on this plain film. Normal visualized pulmonary arteries. Normal visualized aortic arch and descending thoracic aorta. Normal visualized thoracic spine. Normal visualized ribs, clavicles, and shoulders. There is no demonstrated abnormality of the visualized soft tissue structures of the upper abdomen. RAD/Chest PA and Lateral IMPRESSION: No acute cardiopulmonary disease. Small bilateral pleural effusions unchanged. COPD. Electronically Signed: Samuel Bowman MD at 5:05 EST , Service support ,
== END ==
PROVIDERS: PCP Family Medicine; Referring Provider Internal Medicine Hematology & Oncology; Visit Provider Internal Medicine Hematology & Oncology
DX: J45.909 Unspecified asthma, uncomplicated (principal); R05 Cough; R06.00 Dyspnea, unspecified; C64.1 Malignant neoplasm of right kidney, except renal pelvis; C77.0 Secondary and unspecified malignant neoplasm of lymph nodes of head, face and neck; C77.1 Secondary and unspecified malignant neoplasm of intrathoracic lymph nodes; C77.9 Secondary and unspecified malignant neoplasm of lymph node, unspecified
CPT/HCPCS: 71046; 80053; 85025; A4216

== ENCOUNTER → 2021-01-26 10:32 | Outpatient (CLI) | payer MEDICARE, SELFPAY ==
[2021-01-18 10:23] VITALS: BMI 27.8
[2021-01-25 11:53] VITALS: BMI 27.6
--- NOTE | 2021-01-26 10:33 | ECHODONC_ITS ---
Reason For Study: HTN Procedure This was a 2D Doppler, Color Flow transthoracic echocardiogram. Myocardial strain analysis was performed in this exam to aid in the assessment of cardiac function. Exam performed in department. Left Ventricle Normal LV size. Left ventricular systolic function is normal. The estimated ejection fraction is 60 %. No regional wall motion abnormalities noted. Right Ventricle Normal RV size. Normal systolic function. Atria Normal left atrium. Normal right atrium. Mitral Valve Normal mitral valve. Tricuspid Valve Normal tricuspid valve. Mild (1+) tricuspid valve insufficiency. Pulmonary artery systolic pressure is 34 mmHg. Aortic Valve Normal aortic valve. Trisinus/trileaflet aortic valve. Pulmonic Valve Normal pulmonic valve. Great Vessels Normal aortic root. The pulmonary artery is normal size. Normal inferior vena cava. Pericardium/Pleural No pericardial effusion. MMode/2D Measurements & Calculations LVIDd: 3.6 cm IVSd: 1.2 cm Ao root diam: 2.9 cm LVIDs: 2.1 cm LVPWd: 0.83 cm LA dimension: 3.0 cm RVDd: 3.9 cm FS: 42.0 % LAV(MOD-bp): 28.3 ml LA A4 area: 14.1 cm2 RA A4 area: 10.6 cm2 LAV(MOD-bp) Indexed: 14.5 ml/m2 LAV(MOD-sp2): 23.8 ml LAV(MOD-sp4): 29.5 ml Time Measurements MV dec time: 0.26 sec Doppler Measurements & Calculations MV A max jarrett: 110.3 cm/sec Lat Peak E' Jarrett: 5.2 cm/sec Med Peak E' Jarrett: 5.6 cm/sec MV V2 max: 108.7 cm/sec MV P1/2t max jarrett: 71.6 cm/sec Ao V2 max: 98.7 cm/sec MV max P.7 mmHg MV P1/2t: 93.6 msec Ao max P.9 mmHg MV V2 mean: 52.4 cm/sec MV dec slope: 224.1 cm/sec2 MV mean P.3 mmHg MVA(P1/2t): 2.4 cm2 MV V2 VTI: 28.9 cm LV V1 max: 102.9 cm/sec PA V2 max: 78.0 cm/sec TR max jarrett: 273.5 cm/sec LV V1 max P.2 mmHg TR max P.0 mmHg Interpretation Summary Normal LV size. Left ventricular systolic function is normal. The estimated ejection fraction is 60 %. Pulmonary artery systolic pressure is 34 mmHg. The global longitudinal strain is normal. The global longitudinal strain = -17.9 % (normal). Ordering Physician: Neville Jeffries Referring Physician: Lobito Isaac Performed By: Anderson Mejia RCS
== END ==
PROVIDERS: PCP Family Medicine; Referring Provider Internal Medicine Cardiovascular Disease; Visit Provider Internal Medicine Cardiovascular Disease
DX: I34.0 Nonrheumatic mitral (valve) insufficiency (principal)
CPT/HCPCS: 93306; 93356

== ENCOUNTER → 2021-02-10 08:26 | Outpatient (CLI) | payer MEDICARE, SELFPAY ==
[2021-01-20 11:07] VITALS: BMI 27.8
[2021-02-08 10:39] VITALS: BMI 27.8
--- NOTE | 2021-02-11 10:13 | PFT ---
INTRODUCTION: The patient is a 75-year-old male that presents for pulmonary function studies secondary to a diagnosis of asthma. Respiratory therapy reports good patient effort. Bronchodilators were used during testing. INTERPRETATION: Forced expiration spirometry demonstrates the presence of a mild large airways obstructive ventilatory defect. There was no significant response to aerosolized bronchodilators. Spirograms are of good quality and plateau gradually indicating slow emptying of the lungs. Body plethysmography was performed and reveals lung volumes to be within normal limits. Diffusing capacity by single breath CO is also within normal limits. IMPRESSION: Irreversible mild large airways obstructive ventilatory defect with preserved lung volumes and diffusing capacity.
== END ==
PROVIDERS: PCP Family Medicine; Referring Provider Internal Medicine Critical Care Medicine; Visit Provider Internal Medicine Critical Care Medicine
DX: J45.909 Unspecified asthma, uncomplicated (principal)
CPT/HCPCS: 94060; 94726; 94729

== ENCOUNTER → 2021-02-15 15:24 | Outpatient (CLI) | payer MEDICARE, SELFPAY ==
[2021-02-15 14:42] VITALS: BMI 28.0
--- NOTE | 2021-02-15 15:26 | VDLE_ITS ---
Reason For Study: Swelling RIGHT LEFT CFV is compressible, spontaneous, phasic, GSV is normal. competent and demonstrates normal CFV is compressible, spontaneous, phasic, augmentation. competent, and demonstrates normal Procedure augmentation. This is a venous duplex using B-mode, color FV is compressible, spontaneous, phasic, flow and spectral Doppler. competent and demonstrates normal Exam performed in department. augmentation. A preliminary report was called and/or faxed POP V is compressible, spontaneous, phasic, to Ghazala BORDEN. competent and demonstrates normal augmentation. T/P Trunk is compressible. PTV is compressible. Acute deep vein thrombosis is noted in the left PeroV and SoleusV. VL/Venous Duplex US, Unilateral Interpretation Summary Acute deep venous thrombosis left peroneal and soleus veins. Patent and compressible left great saphenous vein Normal flow patterns right common femoral vein Ordering Physician: Joyce Horton Referring Physician: Yassine Isaac M.D. Performed By: Megan Gonzalez RVT
== END ==
PROVIDERS: PCP Family Medicine; Referring Provider Nurse Practitioner Family; Visit Provider Nurse Practitioner Family
DX: M25.472 Effusion, left ankle (principal); M79.89 Other specified soft tissue disorders; C77.0 Secondary and unspecified malignant neoplasm of lymph nodes of head, face and neck; R05 Cough
CPT/HCPCS: 80053; 83735; 85025; 93971; A4216

== ENCOUNTER → 2021-02-25 10:07 | Outpatient (CLI) | payer MEDICARE, SELFPAY ==
[2021-02-21 10:31] VITALS: BMI 28.1
== END ==
PROVIDERS: PCP Family Medicine; Referring Provider Internal Medicine Cardiovascular Disease; Visit Provider Internal Medicine Cardiovascular Disease
DX: I49.3 Ventricular premature depolarization (principal); I49.9 Cardiac arrhythmia, unspecified; I10 Essential (primary) hypertension; E78.5 Hyperlipidemia, unspecified
CPT/HCPCS: 93225; 93226

== ENCOUNTER → 2021-03-03 13:39 | Outpatient (CLI) | payer MEDICARE, SELFPAY ==
[2021-02-21 10:31] VITALS: BMI 28.1
[2021-03-01 10:28] VITALS: BMI 27.5
--- NOTE | 2021-03-03 13:41 | CT_ITS ---
STUDY: CT ABDOMEN AND PELVIS WITH CONTRAST REASON FOR EXAM: Male, 75 years old. Abdominal pain, history of renal cell carcinoma RADIATION DOSAGE (If Supplied By Facility): CTDIvol = ( 17.87 ) mGy, DLP = ( 2446.31 ) mGycm TECHNIQUE: Transaxial images were obtained from the dome of the diaphragm to the symphysis pubis without oral contrast. IV 75mL Isovue-300 was administered. Sagittal and coronal images were reconstructed. Individualized dose optimization techniques were used for this CT. COMPARISON: 12/24/2020 FINDINGS: Chronic interstitial changes again noted in both lung parks with superimposed airspace and interstitial opacifications concerning for Covid. These opacifications have worsened since the previous study. There are also enlarging pleural effusions and atelectasis. The visualized portions of the heart are within normal limits. Liver is unremarkable but there is been development of diffuse four-quadrant ascites since the previous study which should be considered malignant. Normal gallbladder and extrahepatic biliary system. Normal spleen. Normal pancreas. Normal bilateral adrenal glands. Stable 2.2 x 2.2 cm hypodense nodule in the posterior aspect of the upper pole the right kidney. Stable 1 cm left renal cyst. Development of omental induration and thickening since the previous study concerning for metastasis. Normal visualized stomach. Normal small intestine. There are multiple colonic diverticula consistent with diverticulosis. There is non-visualization of the appendix. There is diffuse atherosclerotic calcification of the abdominal aorta, without a demonstrated aneurysm. Normal inferior vena cava. Persistent suspicious bulky adenopathy in the region of the jaye hepatis and likely in the retroperitoneum and periaortic region. The nodes have not significantly changed in number or size since the previous study. They are still suspicious for metastasis. Largest again measures approximately 2.4 x 2.4 cm Stable mild circumferential bladder wall thickening. Bilateral inguinal hernias again identified the left now contains a fluid density. There are diffuse degenerative changes of the visualized lumbar spine, and pelvis with stable grade 1 spondylolisthesis at L5/S1. CT/Abdomen/Pelvis WITH Contrast IMPRESSION: Interval worsening since the previous study. There is been a significant increase in interstitial and airspace opacifications in both lung bases with enlarging pleural effusions and atelectasis. Development of diffuse four-quadrant abdominal ascites since the previous study, likely malignant Omental thickening and induration of the omental fat has occurred since the previous study suspicious for metastasis. Persistent suspicious mesenteric and retroperitoneal lymph nodes, likely metastasis Stable 2.2 x 2.2 cm hypodense nodule in the posterior right kidney Stable simple cyst in the left kidney Stable bladder wall thickening Degenerative bony changes Bilateral inguinal hernias, left now contains a fluid density Diverticulosis Electronically Signed: Edy Briscoe MD at 14:51 EDT , Service support ,
--- NOTE | 2021-03-03 13:41 | CT_ITS ---
STUDY: CT CHEST WITH CONTRAST REASON FOR EXAM: Male, 75 years old. Chest pain, history of renal cell carcinoma RADIATION DOSAGE (If Supplied By Facility): CTDIvol = ( 17.87 ) mGy, DLP = ( 2446.31 ) mGycm TECHNIQUE: Transaxial imaging was performed following intravenous administration of IV 75mL Isovue-300. Multiplanar coronal and sagittal images were reformatted. Individualized dose optimization techniques were used for this CT. COMPARISON: 12/24/2020 FINDINGS: Lung windows show the lungs to be normally expanded, development of subtle interstitial opacifications throughout both lung parks. This is not typical for metastasis from renal cell carcinoma this could easily be lymphangitic spread of tumor, however it could also represent small airways inflammation, CHF or even an atypical presentation of Covid pneumonia. There are free flowing bilateral pleural effusions which have worsened since the previous study. The soft tissues again show bilateral supraclavicular lymphadenopathy larger on the left than the right the largest node measures 2.7 x 2.9 cm and is deviating the trachea to the right. It is also impinging upon and displacing the left thyroid lobe. The previously noted metastatic lymphadenopathy has not increased in number since the previous study but the nodes have gotten larger, the largest now measures approximately 2 cm in short axis dimension on the previous study measured 1.2 cm. The adenopathy extends into the pretracheal and subcarinal space as well as the kathy. Bony structures show degenerative change Abdomen reported on separate study CT/Chest WITH Contrast IMPRESSION: Development of diffuse interstitial opacification throughout both lung aprks, differential as described. Given the patient''s history of malignancy this should be considered metastasis until proven otherwise. Stable supraclavicular adenopathy Worrisome enlargement of previously noted mediastinal, pretracheal and subcarinal and perihilar lymph nodes since the previous study. The suggests worsening metastasis No suspicious noncalcified mass or nodule in the lung field but there are enlarging bilateral pleural effusions which should also be considered malignant until proven otherwise Dependent atelectasis Degenerative bony changes Electronically Signed: Edy Briscoe MD at 17:14 EDT , Service support ,
[2021-03-03] MEDS: 0.9% Saline Lock 10 ML Syringe IV (14:13)
== END ==
PROVIDERS: PCP Family Medicine; Referring Provider Nurse Practitioner Family; Visit Provider Nurse Practitioner Family
DX: C64.1 Malignant neoplasm of right kidney, except renal pelvis (principal); C77.1 Secondary and unspecified malignant neoplasm of intrathoracic lymph nodes
CPT/HCPCS: 71260; 74177; Q9967; A4216

== ENCOUNTER → 2021-03-04 14:12 | Outpatient (CLI) | payer MEDICARE, SELFPAY ==
[2021-03-01 10:28] VITALS: BMI 27.5
[2021-03-04 15:51] LABS: BNP,B-Type NATRIURETIC PEPTIDE 89.4 pg/mL (0-100)
== END ==
PROVIDERS: PCP Family Medicine; Visit Provider Internal Medicine Critical Care Medicine
DX: R91.8 Other nonspecific abnormal finding of lung field (principal)
CPT/HCPCS: 36415; 83880

== ENCOUNTER → 2021-03-04 14:53 | Outpatient (CLI) | payer MEDICARE, SELFPAY ==
[2021-03-01 10:28] VITALS: BMI 27.5
== END ==
PROVIDERS: PCP Family Medicine; Referring Provider Internal Medicine Critical Care Medicine; Visit Provider Internal Medicine Critical Care Medicine
DX: R06.02 Shortness of breath (principal); R91.8 Other nonspecific abnormal finding of lung field
CPT/HCPCS: 36415; 83880; 87635; C9803; U0002

== ENCOUNTER → 2021-03-30 09:15 | Outpatient (CLI) | payer MEDICARE, SELFPAY ==
[2021-03-22 10:06] VITALS: BMI 27.6
--- NOTE | 2021-03-30 09:26 | BD_ITS ---
STUDY: DUAL ENERGY X-RAY ABSORPTIOMETRY / DXA REASON FOR EXAM: Male, 75 years old. ON CHRONIC STEROIDS FOR ASTHMA -- HIGH RISK MEDS. TECHNIQUE: Bone Mineral Density (BMD) measurements of lumbar spine and bilateral hips were obtained. COMPARISON: None. FINDINGS: Lumbar Spine (L1-L4): g/cm2 (1.715) / T-score (4.0) / Z-score (4.6) Findings are suggestive of normal bone density with a low fracture risk. Left Femur Total: g/cm2 (1.121) / T-score (0.1) / Z-score (1.1) Left Femoral Neck: g/cm2 (1.060) / T-score (-0.1) / Z-score (1.4) Right Femur Total: g/cm2 (1.063) / T-score (-0.3) / Z-score (0.7) Right Femoral Neck: g/cm2 (0.997) / T-score (-0.6) / Z-score (0.9) BD/Dexa Bone Density Study IMPRESSION: The patient is considered normal as outlined below according to World Mitch Organization (WHO) criteria with a low fracture risk. Reference Information: The T-score is the number of standard deviations above or below the standard which is normal for young adults at their peak bone mineral density. The World Health Organization (WHO) interprets the T-scores as follows: Above -1 Normal bone density Between -1 and -2.5 Osteopenia Equal to / or below -2.5 Osteoporosis As a practical clinical guideline, osteopenia may be graded as follows: Mild -1 through -1.5 Moderate -1.6 through -2.0 Severe -2.1 through -2.4 The Z-score is the number of standard deviations above or below age-matched controls. A Z-score of less than -1.5 would be considered abnormal. References: 1. NIH Osteoporosis and Related Bone Diseases www osteo.org 2. International Society for Clinical Densitometry www iscd.org 3. National Osteoporosis Foundation www nof.org Electronically Signed: Roberto Carlos Street MD at 15:48 EDT , Service support ,
== END ==
PROVIDERS: PCP Family Medicine; Referring Provider Internal Medicine Hematology & Oncology; Visit Provider Internal Medicine Hematology & Oncology
DX: Z13.820 Encounter for screening for osteoporosis (principal); Z79.52 Long term (current) use of systemic steroids; J45.909 Unspecified asthma, uncomplicated
CPT/HCPCS: 77080

== ENCOUNTER → 2021-06-20 13:00 | Outpatient (CLI) | payer MEDICARE, SELFPAY ==
[2021-05-30 13:16] VITALS: BMI 26.4
--- NOTE | 2021-06-20 13:02 | CT_ITS ---
EXAM DESCRIPTION: CT scan of the chest abdomen and pelvis CLINICAL HISTORY: 75 years Male, Cancer Restaging history of renal cell carcinoma. COMPARISON: Previous CT scan of the chest abdomen and pelvis obtained on 03/03/2021 TECHNIQUE: A CT scan of the chest abdomen and pelvis was performed with IV contrast contrast administration. Oral contrast was not administered. Coronal and sagittal reconstruction images were reviewed. This exam was performed according to our departmental dose-optimization program, which includes automated exposure control, adjustment of the mA and/or kV according to patient size and/or use of iterative reconstruction technique. FINDINGS: This CT scan of the chest shows the lung parenchyma to contain increased initial markings bilaterally which was seen previously and is essentially unchanged with some faint alveolar infiltrates noted in the peripheral lungs bilaterally. A moderate-sized right lung base pleural effusion is identified with a smaller left lung base pleural effusion. These findings are atypical for pulmonary metastasis from renal cell cancer and most likely represent interstitial and subcutaneous edema. Lymphangitic spread from carcinomatosis is a less likely diagnostic possibility.Calcifications are noted in the coronary arteries due to coronary calcific arteriosclerosis. The heart is otherwise normal.. Extensive cervical lymphadenopathy is again identified which extends up to the thoracic inlet and into the supraclavicular soft tissues on the left. This mediastinal lymphadenopathy also involves the carinal bifurcation and the right hilum and was previously identified and has not significantly changed. One index supraclavicular lymph node measures about 3.14 x 2.28 cm in size which is measurably unchanged from the previous CT scan.Bone scanning windows through the thoracic spine and ribs were reviewed in the AP and sagittal projection and appear to be normal. No extrathoracic mass or lesion is seen. The liver is normal.The spleen is normal.The adrenal glands are normal.The head, body, and tail of the pancreas are normal. The 1 cm simple cyst in the inferior pole of the left kidney. 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 This is unchanged. The abdominal aortal is normal along its course and distribution. Extensive periaortic lymphadenopathy is again identified which was previously noted and is unchanged. This particularly prominent at about the level of the right and left renal artery origins. Extensive 4 quadrant intra-abdominal ascites is again identified and is unchanged. The CT scan of the pelvis was then reviewed. The common iliac vessels, external iliac vessels, and common femoral vessels are normal along their course and distribution No pelvis masses or lesions are seen. A fluid-containing left inguinal hernia is identified. The appendix is not seen No pericecal inflammatory reaction is seen. Bone scanning windows of the lumbar spine and pelvis were reviewed in the coronal and sagittal planes and show bilateral spondylitic defects of L5 with one CM of grade 1 spondylolisthesis of L5 on S1. CT/CT Chest, Abd, Pel w/Contrast IMPRESSION: 1. Alveolar and interstitial infiltrates are again seen in both lungs likely representing pulmonary edema with a moderate sized right lung base pleural effusion and a small left lung base pleural effusion which is slightly changed. 2. 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 3. Extensive mediastinal lymphadenopathy extending to the left supraclavicular region which was previously noted, and probably represents metastasis or lymphoma which is unchanged. 4. Retroperitoneal lymphadenopathy along the abdominal aorta from metastasis and/or lymphoma which was previously identified and is unchanged. 5. 4 quadrant large abdominal ascites which was previously noted and is unchanged. 6. Bilateral spondylitic defects of L5 with grade 1 spondylolisthesis of L5 on S1 which is unchanged. Electronically Signed: Ed Bethea DO at 10:10 EDT Tel , Service support ,
== END ==
PROVIDERS: PCP Family Medicine; Referring Provider Internal Medicine Hematology & Oncology; Visit Provider Internal Medicine Hematology & Oncology
DX: C64.1 Malignant neoplasm of right kidney, except renal pelvis (principal); N18.9 Chronic kidney disease, unspecified
CPT/HCPCS: 71260; 74177; 96360; J7040; Q9967

== ENCOUNTER → 2021-07-20 11:25 | Outpatient (CLI) | payer MEDICARE, SELFPAY ==
[2021-07-20 12:01] LABS: BNP,B-Type NATRIURETIC PEPTIDE 25.9 pg/mL (0-100)
== END ==
PROVIDERS: PCP Family Medicine; Referring Provider Internal Medicine Critical Care Medicine; Visit Provider Internal Medicine Critical Care Medicine
DX: J90 Pleural effusion, not elsewhere classified (principal)
CPT/HCPCS: 36415; 83880

== ENCOUNTER 2021-08-08 13:30 | Outpatient (RCR) | payer MEDICARE, SELFPAY | END 2021-08-18 23:59 | LOC: NS 13:30 | PROVIDERS: PCP Family Medicine; Visit Provider Internal Medicine Hematology & Oncology | DX: Z00.00 Encounter for general adult medical examination without abnormal findings (principal) ==

== ENCOUNTER → 2021-09-05 15:25 | Outpatient (CLI) | payer MEDICARE, SELFPAY ==
--- NOTE | 2021-09-05 15:30 | RAD_ITS ---
STUDY: X-RAY CHEST REASON FOR EXAM: Male, 75 years old. Shortness of breath, cough TECHNIQUE: PA and lateral views of the chest. COMPARISON: 01/11/2021 FINDINGS: Stable right jugular chest port. There are interstitial fibrotic changes of the lungs. No airspace consolidation. There is no demonstrated pleural abnormality. Normal size heart. Normal mediastinum and kathy. Normal visualized pulmonary arteries. Normal visualized aortic arch and descending thoracic aorta. There is demineralization of the osseous structures. Normal visualized ribs, clavicles, and shoulders. There is no demonstrated abnormality of the visualized soft tissue structures of the upper abdomen. RAD/Chest PA and Lateral IMPRESSION: No airspace consolidation or pleural effusion. Pulmonary fibrotic changes, stable. Electronically Signed: Gabe Gutierrez MD ([place]) at 16:14 EDT , Service support ,
== END ==
PROVIDERS: PCP Family Medicine; Referring Provider Internal Medicine Critical Care Medicine; Visit Provider Internal Medicine Critical Care Medicine
DX: J90 Pleural effusion, not elsewhere classified (principal)
CPT/HCPCS: 71046

== ENCOUNTER → 2021-09-13 13:00 | Outpatient (CLI) | payer MEDICARE, SELFPAY ==
--- NOTE | 2021-09-13 13:32 | CT_ITS ---
STUDY: CT CHEST, ABDOMEN T PELVIS WITH CONTRAST REASON FOR EXAM: Male, 76 years old. KIDNEY CANCER FOLLOW UP RADIATION DOSAGE (If Supplied By Facility): CTDIvol = ( 11.76 ) mGy, DLP = ( 1264.95 ) mGycm TECHNIQUE: Transaxial imaging was performed following intravenous administration of IV 100mL Isovue-300. Individualized dose optimization techniques were used for this CT. COMPARISON: 06/20/2021 FINDINGS: CHEST Right internal jugular chest port. Reticular opacities throughout the lungs consistent with interstitial pulmonary edema. Large right pleural effusion and small left pleural effusion with some bibasilar atelectasis. Normal heart and pericardium. No change in mediastinal lymphadenopathy with prevascular, right paratracheal, precarinal, and subcarinal lymphadenopathy. For example, right paratracheal lymphadenopathy is unchanged measuring 1.5 x 3.0 cm. Subcarinal lymphadenopathy is unchanged measuring 2.2 x 5.2 cm per Normal hilar regions. Normal unenhanced pulmonary arteries. Normal aorta arch and descending thoracic aorta. Normal osseous structures. There is no demonstrated abnormality of the visualized upper abdomen. ABDOMEN Large amount of ascites. Normal liver. Normal gallbladder and extrahepatic biliary system. Normal spleen. Normal pancreas. Normal bilateral adrenal glands. No change in the 2.2 cm septated cyst in the upper pole the right kidney. No change in 1.5 cm cyst in lower pole of the left kidney. Normal visualized stomach. Normal small intestine. There is diverticulosis, with thickening of the colon wall, and pericolonic inflammation changes consistent with acute diverticulitis. The appendix is visualized and appears normal. Normal abdominal aorta. Normal inferior vena cava. There is no change in the retroperitoneal lymphadenopathy. For example, a bilobed interaortocaval lymphadenopathy is unchanged measuring 2 x 3 cm per there is also no change in the abnormal soft tissue attenuation within the greater omentum consistent with omental carcinomatosis. Normal abdominal wall. Mild levoscoliosis of lumbar spine with degenerative disc disease. Bilateral pars defects of the L5 vertebra consistent with L5 spondylolysis. 8 mm of anterolisthesis of L5 on S1 consistent with grade 2 spondylolisthesis. PELVIS Normal urinary bladder. Normal visualized small intestine. There are multiple colonic diverticula of the sigmoid colon consistent with chronic diverticulosis. There is no pelvic lymphadenopathy or mass lesion. Normal visualized pelvic arteries. Moderate sized left inguinal hernia containing a short segment of the proximal sigmoid colon and a moderate amount of free fluid. Small right inguinal hernia containing fat. Normal osseous structures. CT/CT Chest, Abd, Pel w/Contrast IMPRESSION: 1. Volume overload with interstitial pulmonary edema, large right pleural effusion, and small left pleural effusion. 2. No change in omental carcinomatosis with a large amount of ascites. 3. No change in mediastinal and retroperitoneal metastatic lymphadenopathy. Electronically Signed: Khanh Cummings MD at 13:58 EDT Tel , Service support ,
== END ==
PROVIDERS: PCP Family Medicine; Referring Provider Internal Medicine Hematology & Oncology; Visit Provider Internal Medicine Hematology & Oncology
DX: C64.1 Malignant neoplasm of right kidney, except renal pelvis (principal); C77.0 Secondary and unspecified malignant neoplasm of lymph nodes of head, face and neck; C77.1 Secondary and unspecified malignant neoplasm of intrathoracic lymph nodes; C77.9 Secondary and unspecified malignant neoplasm of lymph node, unspecified; N18.9 Chronic kidney disease, unspecified
CPT/HCPCS: 71260; 74177; 96360; J7040; Q9967; A4216

== ENCOUNTER 2021-09-22 06:52 | Emergency (ER) | payer MEDICARE, SELFPAY ==
[2021-09-22 06:53] VITALS: BP 105/82; PULSE 105; RESP 29; TEMP 36; O2SAT 95; BMI 24.5
--- NOTE | 2021-09-22 06:55 | EKG12_ITS ---
Test Reason : SOB Blood Pressure : / mmHG Vent. Rate : 104 BPM Atrial Rate : 104 BPM P-R Int : 138 ms QRS Dur : 074 ms QT Int : 344 ms P-R-T Axes : 000 089 079 degrees QTc Int : 452 ms Sinus tachycardia Inferior infarct , age undetermined Abnormal ECG Confirmed by AHSAN ARIAS, IALN ([id number]), writer editor JESSY NICOLE ([id number]) on 09/26/2021 10:12:45 A M Referred By: DANNY Confirmed By:LIZ FOREMAN MD
[2021-09-22 07:14] VITALS: BP 108/75; PULSE 105; RESP 15; O2SAT 97
--- NOTE | 2021-09-22 07:31 | RAD_ITS ---
STUDY: X-RAY CHEST REASON FOR EXAM: Male, 76 years old. Sob TECHNIQUE: AP and lateral views of the chest. COMPARISON: Comparison is made with prior study dated 09/05/2021. FINDINGS: A right-sided portacatheter is seen with the tip at the junction of the superior vena cava and right atrium. Since prior study, there has been progressive increased interstitial markings more prominent at the right lung base. This may represent either atelectasis and/or early infiltrate superimposed on chronic interstitial fibrosis. Markings There is no demonstrated pleural abnormality. Normal size heart. Normal mediastinum and kathy. Normal visualized pulmonary arteries. Normal visualized aortic arch and descending thoracic aorta. Normal visualized thoracic spine. Normal visualized ribs, clavicles, and shoulders. There is no demonstrated abnormality of the visualized soft tissue structures of the upper abdomen. RAD/Chest PA and Lateral IMPRESSION: Increased interstitial markings at the lung bases more prominent on the right side suggestive of atelectasis and/or infiltrate superimposed on chronic interstitial fibrosis. Electronically Signed: Roberto Carlos Street MD at 8:45 EDT , Service support ,
[2021-09-22] MEDS: 0.9% Normal Saline 1,000 ML 1000 ML IV (07:33)
[2021-09-22] MEDS: Loperamide 2 MG Capsule 4 MG PO (07:33)
--- NOTE | 2021-09-22 07:33 | EDS_ITS ---
HPI History of Present Illness Chief Complaint: Diarrhea Informant: patient Onset/Context/Timing Onset: Yesterday Context: Gradual Onset Timing: Intermittent Quality: loose/watery Current Severity: Severe Maximum Severity: Severe Worsened by: nothing Relieved by: imodium but not helping much Associated Symptoms Associated Symptoms: weaker and more often lightheaded than usual. sob. Narrative Narrative: Patient with a history of metastatic renal cancer on an oral chemotherapeutic agent and Xarelto for history of DVTs as well as a history of bilateral pleural effusions and ascites from omental involvement presenting with acute diarrhea that has been present for a long time but only about once a day or so, brown and loose, since yesterday evening has picked up in frequency and he presents early this morning because he has had it all night more than 10 bouts. It is the same color a little looser/more watery, but no blood or melena. No associated abdominal pain or fevers/chills. He has dyspnea, it is not necessarily worse since this is started, it has been present for months and has been worse in the last several weeks but he is scheduled for thoracentesis and paracentesis tomorrow at 2 PM. This is diagnostic and therapeutic. He also had some mild pulmonary edema on his last CT scan about a week ago, his echocardiogram from January did not show any signs of heart failure with an EF of 60%. He does follow with cardiology mostly for blood pressure management issues, medicines have been adjusted frequently lately. His blood pressure is 105/82 in triage here, he has not yet taken his blood pressure medication this morning, and has been holding his Xarelto for his thoracentesis, and he also started holding his oral chemotherapeutic agent yesterday. He is on Lasix and last took that 3 days ago. 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 Mucositis due to antineoplastic therapy Multiple premature ventricular complexes Nasal bleeding PORT PLACEMENT Regional lymph node metastasis present Rotator cuff arthropathy of right shoulder Senile purpura Spinal stenosis Home Medications omeprazole 40 mg PO DAILY 02/07/14 [History Last Taken 12/27/20] triamcinolone acetonide 1 applic TOPICAL DAILY PRN 02/07/14 [History Last Taken 12/26/20] atorvastatin 20 mg PO QHS 11/10/17 [History Last Taken 12/26/20] metoprolol succinate 100 mg PO DAILY 11/10/17 [History Last Taken 12/27/20] icosapent ethyl 2 gm PO BID 10/14/20 [History Last Taken 12/26/20] levocetirizine 5 mg PO DAILY 10/14/20 [History Last Taken 12/26/20] cholecalciferol (vitamin D3) 25 mcg PO BID 11/29/20 [History Last Taken 12/26/20] coenzyme Q10 200 mg PO DAILY 11/29/20 [History Last Taken 12/26/20] cyanocobalamin (vitamin B-12) 500 mcg PO BID 11/29/20 [History Last Taken 12/26/20] vit C,V-Aq-lnsih-lutein-zeaxan 1 each PO QHS 11/29/20 [History Last Taken 12/26/20] zinc 50 mg PO DAILY 11/29/20 [History Last Taken 12/26/20] acetaminophen 500 mg PO Q4H PRN PRN tablet 12/03/20 [Rx Last Taken 12/26/20] lidocaine-prilocaine 1 applic TP DAILY PRN PRN 30 Days #1 tube 12/20/20 [Rx Last Taken 12/26/20] ondansetron 8 mg PO Q8H PRN PRN 10 Days #30 tab.rapdis 02/17/21 [Rx Last Taken Unknown] rivaroxaban 20 mg PO DAILY #90 tablet 03/03/21 [Rx Last Taken Unknown] magnesium oxide 400 mg (241.3 mg magnesium) tablet 400 mg PO DAILY #90 tab 04/15/21 [Rx Last Taken Unknown] MAGIC MOUTH WASH (BMX) 15 ml BUCCAL 4X/DAY #180 ml 05/10/21 [Rx Last Taken Unknown] prochlorperazine maleate 10 mg PO Q6H PRN #60 tab 05/24/21 [Rx Last Taken Unknown] albuterol sulfate 90 mcg/actuation aerosol inhaler 2 puff INHALATION Q4H PRN #8.5 gm 07/20/21 [Rx Last Taken Unknown] azelastine-fluticasone 137 mcg-50 mcg/spray nasal spray 1 spray INTRANASAL BID #3 each 07/20/21 [Rx Last Taken Unknown] budesonide-formoterol HFA 160 mcg-4.5 mcg/actuation aerosol inhaler 2 puff INHALATION BID #10.2 gm 07/20/21 [Rx Last Taken Unknown] montelukast 10 mg tablet 10 mg PO QPM #90 tab 07/20/21 [Rx Last Taken Unknown] prednisone 10 mg tablet See Rx Instructions PO DAILY #30 tab 07/20/21 [Rx Last Taken Unknown] tiotropium bromide 1.25 mcg/actuation mist for inhalation 2 puff INHALATION DAILY #3 ea 07/20/21 [Rx Last Taken Unknown] tramadol 50 mg tablet 50 mg PO Q6H PRN 07/26/21 [History Last Taken Unknown] furosemide 20 mg tablet 20 mg PO .3 days week #50 tab 07/27/21 [Rx Last Taken Unknown] Saliva Max packet PO DAILY 08/23/21 [History Last Taken Unknown] losartan 25 mg tablet 25 mg PO DAILY #30 tab 09/12/21 [Rx Last Taken Unknown] Allergy/AdvReac Type Severity Reaction Status Date / Time celecoxib [From Celebrex] Allergy Mild Swelling Verified 09/20/21 15:01 meloxicam Allergy Mild Swelling Verified 09/20/21 15:01 pembrolizumab AdvReac Severe Pneumonia Verified 09/20/21 15:01 adhesive tape AdvReac Mild Skin Tears Verified 09/20/21 15:01 very easily Family History Sister Skin cancer (melanoma) Surgical History S/P biopsy Social History household members: spouse housing: house Smoking Status: Never smoker alcohol intake: never substance use type: does not use well-balanced diet: daily or most days caffeine: Yes Type: coffee Number of servings: 1 eating out: rarely or never sahara/jain: Nazarene seatbelt use: always do you feel safe at home: Yes ROS ROS ED Constitutional Constitutional ED: Reports fatigue and malaise; Denies body ache(s), chills or fever(s) Eyes Eyes: Denies change in vision or diplopia ENT ENT ED: Reports other Details: Has had problems with sense of smell chronically but nothing changed ; Denies loss taste/smell, rhinorrhea or sore throat Cardiovascular Cardiovascular: Reports edema; Denies chest pain, orthopnea or palpitations Respiratory/Chest Respiratory/Chest: Reports cough, dyspnea and dyspnea on exertion; Denies orthopnea Gastrointestinal Gastrointestinal: Reports diarrhea and other Details: Distention which has been present since cancer has been in his omentum no changes ; Denies abdominal pain, nausea or vomiting Genitourinary Genitourinary ED: Denies dysuria or hematuria Musculoskeletal Musculoskeletal: Denies back pain or neck pain Integumentary Denies abscess or rash Neurologic Neurologic: Denies headache(s), paresthesias or weakness Psychiatric Psychiatric: Denies anxiety or suicidal thoughts EXAM Physical Exam Const Vital Signs: 09/22/21 06:53 09/22/21 07:14 09/22/21 09:08 Temperature 96.8 F L Temperature Source Temporal Pulse Rate 105 H 105 H 104 H Respiratory Rate 29 H 15 15 Blood Pressure 105/82 H 108/75 104/70 Blood Pressure Mean 89 86 81 Pulse Ox 95 97 98 Oxygen Delivery Method Room Air Room Air Room Air Positive well nourished and well developed General Appearance ED: well developed and NAD HEENT Reports moist mucous membranes normocephalic and atraumatic Eyes PERRL and EOMs intact bilaterally Neck full ROM, supple and no JVD Resp normal respiratory effort and clear to auscultation bilaterally Resp Narrative: Diminished breath sounds bilaterally especially at bases Cardio regular rate, regular rhythm, no murmurs and no JVD Cardio Narrative: Mild tachycardia just over 100 GI non-tender GI Narrative: Mild abdominal distention, soft, borderline whether fluid wave present or not Auscultation: normoactive bowel sounds Palpation: soft Back/Spine no CVA tenderness General Back: other FROM Extremity normal to inspection and no calf tenderness General Extremety ED: Yes edema; Negative for pulses abnormal or tenderness General Extremity: edema bilateral lower extremity Details: moderate; Negative for pulses abnormal Neuro oriented x3, CN's II-XII intact bilaterally and no sensory deficits noted Sensorium / Orientation: awake and alert Motor Exam: strength 5/5 throughout Skin no rashes or lesions noted and no wounds MDM MDM MDM Narrative Medical decision making narrative: With regard to the patient's dyspnea, he feels it may be slowly getting worse and agrees that he is dyspneic, but feels that he can wait until tomorrow for his appointment with interventional radiology here at the hospital to have his thoracentesis. He does not feel like that is an acutely worse issue that will keep him from going home, he is more worried about the diarrhea and the fact that it seems to have made him feel worse. This patient walks a fine line with regards to hydration versus dehydration for the reasons stated above. While working him up, I started with a 250 cc bolus of normal saline, discussing this with the patient and /family, they agree that sound like a reasonable thing to do for now. Labs do show mild renal insufficiency/prerenal azotemia, so the fluid certainly was reasonable. He feels a little better. His breathing is stable and his oxygenation is excellent. His lungs do not sound wet or like pneumonia, so I think the x-ray interstitial findings are more likely to be atelectatic in relation to the effusion that is larger on the right on his recent CT. The cough and breathing are not new, albeit a little worse. I discussed all this with Dr. Mejia, he agrees with the plan of having the patient follow-up continue holding his chemotherapeutic drug for the next week until he is seen at his appointment next week. I advised the patient to hold his losartan tonight because his blood pressure is 104/70 with a heart rate of 104. I think he can continue to take his metoprolol succinate 100 mg this morning so he does not have withdrawal tachycardia. I would not put him on antibiotics right now for anything mainly because of the diarrhea, and when he had a specimen here it was actually a small amount but with some formed stool in it. The lab states he is not a candidate for C. difficile as a result of this, and they do not have enough to run the enteric panel and ova/parasites, so I will have them run the enteric panel and the patient will be discharged to have his taps tomorrow. Family is comfortable with that plan. Lab Data Attestation: I reviewed the patient's lab results. Labs: Laboratory Results - last 24 hr 09/22/21 09/22/21 07:32 07:32 WBC 6.4 RBC 3.47 L Hgb 13.0 Hct 36.9 L MCV 106.3 H MCH 37.5 H MCHC 35.2 RDW Std Deviation 58.1 H RDW Coeff of Luis 14.8 H Plt Count 322 MPV 10.0 Immature Gran % (Auto) 0.300 Neut % (Auto) 87.9 H Lymph % (Auto) 6.[address] [place] % (Auto) 4.7 Eos % (Auto) 0.6 Baso % (Auto) 0.3 Absolute Neuts (auto) 5.7 Absolute Lymphs (auto) 0.40 L Nucleated RBC % 0 Sodium 131 L Potassium 4.6 Chloride 100 Carbon Dioxide 22.0 Anion Gap 9 BUN 45 H Creatinine 1.31 H Estim Creat Clear Calc 44.15 Est GFR (MDRD) Af Amer 68 Est GFR (MDRD) Non-Af 56 L BUN/Creatinine Ratio 34.4 H Glucose 103 Calcium 8.4 L Total Bilirubin 0.50 AST 51 H ALT 41 Alkaline Phosphatase 99 Troponin I High Sens 16 Total Protein 6.0 L Albumin 2.0 L Globulin 4.0 Albumin/Globulin Ratio 0.5 L Radiography Diagnostic Testing: Clinical Impression(s) from Imaging Studies Chest X-Ray 09/22/21 07:31 IMPRESSION: Increased interstitial markings at the lung bases more prominent on the right side suggestive of atelectasis and/or infiltrate superimposed on chronic interstitial fibrosis. Electronically Signed: Roberto Carlos Street MD at 8:45 EDT , Service support , EKG Initial EKG: Attestation: I personally reviewed and interpreted this EKG as follows: Interpretation: No Acute Injury Pattern, Sinus Tachycardia and Non- Specific ST Changes (Possible some limb lead T wave flattening but artifact obscures many leads' baseline) Discharge Plan Triage Chief Complaint: Diarrhea Other Complaint: Shortness of Breath ED Provider: Dalton Archer Dx/Rx/DC Orders Clinical Impression: Acute diarrhea, Cancer of right kidney, Metastasis to mediastinal lymph node, Omental metastasis, Mild dehydration, Chronic dyspnea, Pleural effusion, bilateral Instructions: ED Diarrhea, Unknown Cause Prescriptions: No Action magnesium oxide [MagOx] 400 mg (241.3 mg magnesium) tablet 400 mg PO DAILY Qty: 90 RF: 2 albuterol sulfate 90 mcg/actuation HFA aerosol inhaler 2 puff INHALATION Q4H PRN (Reason: shortness of breath or wheezing) Qty: 8.5 RF: 6 azelastine-fluticasone 137-50 mcg/spray spray,non-aerosol 1 spray INTRANASAL BID Qty: 3 RF: 3 budesonide-formoterol 160-4.5 mcg/actuation HFA aerosol inhaler 2 puff INHALATION BID Qty: 10.2 RF: 6 montelukast [Singulair] 10 mg tablet 10 mg PO QPM Qty: 90 RF: 3 Spiriva Respimat 1.25 mcg/actuation mist 2 puff inhalation DAILY Qty: 3 RF: 3 prednisone 10 mg tablet See Rx Instructions PO DAILY Qty: 30 RF: 0 tramadol 50 mg tablet 50 mg PO Q6H PRNRF: 0 Saliva Max packet PO DAILY RF: 0 omeprazole 40 MG capsule 40 mg PO DAILY RF: 0 triamcinolone acetonide 1 APPLIC cream 1 applic TOPICAL DAILY PRN (Reason: skin) RF: 0 atorvastatin 20 MG tablet 20 mg PO QHS RF: 0 metoprolol succinate 50 MG tablet 100 mg PO DAILY RF: 0 levocetirizine 5 MG tablet 5 mg PO DAILY RF: 0 icosapent ethyl 1 GM capsule 2 gm PO BID RF: 0 lidocaine-prilocaine 30 GM cream 1 applic TP DAILY PRN PRN (Reason: Not Specified) 30 Days Qty: 1 RF: 2 ondansetron 8 MG tablet,disintegrating 8 mg PO Q8H PRN PRN (Reason: Nausea) 10 Days Qty: 30 RF: 3 rivaroxaban 20 MG tablet 20 mg PO DAILY Qty: 90 RF: 4 MAGIC MOUTH WASH (BMX) 180 mL Suspension 15 ml buccal 4X/DAY Qty: 180 RF: 3 prochlorperazine maleate 10 mg Tablet 10 mg PO Q6H PRN (Reason: Nausea) Qty: 60 RF: 3 cyanocobalamin (vitamin B-12) 500 MCG tablet 500 mcg PO BID RF: 0 zinc 50 MG tablet 50 mg PO DAILY RF: 0 coenzyme Q10 100 MG capsule 200 mg PO DAILY RF: 0 cholecalciferol (vitamin D3) 25 MCG tablet 25 mcg PO BID RF: 0 vit C,P-Mw-enpnc-lutein-zeaxan 1 EACH capsule 1 each PO QHS RF: 0 acetaminophen 500 MG tablet 500 mg PO Q4H PRN PRN (Reason: Pain Score 1-5/10) RF: 0 furosemide [Lasix] 20 mg tablet 20 mg PO .3 days week Qty: 50 RF: 4 losartan 25 mg tablet 25 mg PO DAILY Qty: 30 RF: 4 Primary Care Provider: Lobito Isaac Referrals: Diane Eugene MD [STAFF PHYSICIAN] - Keep Cari appointment Lobito Isaac MD [Primary Care Provider] - Activity Restrictions/Additional Instructions: Hold your losartan tonight. Continue holding your Xarelto and your chemotherapy medication until you are advised to restart them. Disposition Disposition: Home, Self Care
[2021-09-22 07:50] LABS: Absolute Neutrophil Count 5.7 X10^3/uL (2.0-7.7); Basophil# 0.02 X10^3/uL; Basophil% 0.3 % (0-1); Eosinophil# 0.04 X10^3/uL; Eosinophils% 0.6 % (0-5); Hematocrit 36.9 % (40-54); Lymphocyte % 6.2 % (19-41); Mean Corp Hgb Conc 35.2 g/dL (32-36); Mean Corpuscular Hgb 37.5 pg (27.0-32.0); Mean Corpuscular Volume 106.3 fL (80-94); Monocyte% 4.7 % (0-10); NRBC Flagged by Analyzer 0 % (0-5); Neutrophil # 5.66 X10^3/uL (2.7-7.7); Neutrophil % 87.9 % (47-70); POSITIVE DIFFERENTIAL YES; Platelet Count 322 K/mm3 (150-450); RBC Distribution Width CV 14.8 % (11.6-14.6); RBC Distribution Width SD 58.1 fl (35.1-43.9); Red Blood Count 3.47 M/mm3 (4.6-6.2); White Blood Count 6.4 K/mm3 (4.4-11.0)
[2021-09-22 08:03] LABS: ALB/GLOB Ratio 0.5 RATIO (0.9-2.4); AST(SGOT) 51 U/L (15-37); Alanine Aminotransfer ALT/SGPT 41 U/L (16-61); Alkaline Phosphatase 99 U/L (45-117); Anion Gap 9 (5-15); BUN 45 mg/dL (7-18); BUN/Creat Ratio 34.4 RATIO (10-20); Calcium,Total 8.4 mg/dL (8.5-10.1); Chloride 100 mmol/L (98-107); Creatinine, Serum 1.31 mg/dL (0.70-1.30); EST Glomerular Filtration Rate 56 mL/min (>60); Est Glom Filt Rate - Afr Amer 68 mL/min (>60); Estimated Creatinine Clearance 44.15 ml/min; Glucose 103 mg/dL (74-106); Potassium 4.6 mmol/L (3.5-5.1); Sodium Level 131 mmol/L (136-145); Troponin-I HS 16 pg/mL (3.0-78.0)
[2021-09-22 08:10] LABS: Differential Indicated SCAN CRITERIA MET
[2021-09-22 09:08] VITALS: BP 104/70; PULSE 104; RESP 15; O2SAT 98
== END 2021-09-22 09:38 | disposition home or self-care (01) ==
PROVIDERS: Emergency Medicine; Emergency Provider Emergency Medicine; PCP Family Medicine
DX: R19.7 Diarrhea, unspecified (principal); C64.9 Malignant neoplasm of unspecified kidney, except renal pelvis; C77.8 Secondary and unspecified malignant neoplasm of lymph nodes of multiple regions; C78.6 Secondary malignant neoplasm of retroperitoneum and peritoneum; E86.0 Dehydration; J90 Pleural effusion, not elsewhere classified; Z20.822 Contact with and (suspected) exposure to COVID-19; I12.9 Hypertensive chronic kidney disease with stage 1 through stage 4 chronic kidney disease, or unspecified chronic kidney disease; N18.9 Chronic kidney disease, unspecified; E78.5 Hyperlipidemia, unspecified; J45.909 Unspecified asthma, uncomplicated; M19.90 Unspecified osteoarthritis, unspecified site; K21.9 Gastro-esophageal reflux disease without esophagitis; Z79.01 Long term (current) use of anticoagulants; Z79.52 Long term (current) use of systemic steroids; Z79.899 Other long term (current) drug therapy; Z86.718 Personal history of other venous thrombosis and embolism
CPT/HCPCS: 36591; 71046; 80048; 80053; 84484; 85025; 87426; 87506; 93005; 96360; 99285; J7030; A4216

== ENCOUNTER → 2021-09-23 13:49 | Outpatient (CLI) | payer MEDICARE, SELFPAY ==
--- NOTE | 2021-09-23 | IMM_PTH ---
PATIENT: STEPHEN CHILDRESS LOC: [facility]#:[id number] AGE/SX: 80/M ROOM: RE09/23/[address]: Dr. Diane Eugene MD : 1945 BED: DIS: SPEC #: [id number] RECD: 09/27/21 14:22 STATUS: DARIUS REQ #: [id number] LEIGHANN: 09/23/21 00:[address]: Daine Eugene DEPT: IMMUNOHISTOCHEMISTRY RECD BY: Alma Donato ENTERED: 09/27/21 14:34 SP TYPE: IMMUNO OTHR DR: Dr. Lobito Isaac MD Tissues: THORACIC FLUID Procedures: Synapto (add) RCC (add) Thyroglobulin (add) NAPSIN A (add) Bridger Ret (add) CD10 (add) CD45 (add) CD56 (add) CHROMO (add) CK19 (add) CK20 (add) CK7 (add) CK8 (add) MANNING-2 (add) HBME (add) HEP PAR (add) KI-67 (add) P53 (add) TTF1 (add) Vimentin (add) 34BE12 (add) Pankeratin (initial) P40 (add) CDX2 (add) CD44 (add) PSAP (add) S-100 (add) PHYSICIAN & [place] [id number] SPECIMEN INFORMATION: Tissue Source: Thoracentesis Clinical Info: Right pleural effusion Specimen Number: [id number] CPT code: 06663, 73859 x26 METHODOLOGY: Deparaffinized sections of prefer/formalin-fixed tissue or PAP/DQ stained slides are incubated with monoclonal/polyclonal antibodies/oligonucleotide probes. Localization is made via biotin free immunoperoxidase method. Appropriate controls are performed and reacted as expected. Results on target cell population are indicated in the following table: RESULTS: ANTIBODY / CLONE RESULT AE1-3 (AE1/AE3/PCK26) positive CK7 (OV-TL12/30) positive CK8 (07zfkrO22) positive CK20 (KS20.8) negative MANNING-2 (SP21) positive CDX2 ([id number]) negative CD45 (RP2/18) negative CD10 (56C6) positive, occasional Vimentin (V9) positive 34BE12 (34BE12) positive S-100 (4C4.9) negative HBME1 (HBME-1) negative CK19 (A53-B/A2.26) positive TTF-1 (8G7G3/1) negative Napsin A (Rabbit Polyclonal) negative HepPar (OCh1E5) negative RCC (PN-15) negative PSAP (PASE/4LJ) negative Thyro (2H11+6E1) negative CALRET (polyclonal) negative anti-CD44 (SP37) positive P40 (BC28) negative P53 (DO-7) negative Ki-67 (30-9) positive, 25% CD56 (123C3.D5) negative Synapto (polyclonal) negative Chromo (LK2H10) negative These tests were developed and their performance characteristics determined by [facility]. They may not have been cleared or approved by the U.S. Food and Drug Administration. The FDA has determined that such clearance or approval is not necessary. The above immunohistochemical/dualISH markers are ordered and reviewed by the Pathologist. INTERPRETATION: Thoracentesis fluid (cell block): Metastatic non-small cell carcinoma. AM:richie 09/29/2021 Comment: The IHC profile favors a renal primary. Case has been reviewed in consultation with Dr. Adler who concurs with the above diagnosis. IDC:[id number]
--- NOTE | 2021-09-23 | FLU_PTH ---
PATIENT: STEPHEN CHILDRESS LOC: U#:[id number] AGE/SX: 80/M ROOM: RE09/23/[address]: Dr. Diane Eugene MD : 1945 BED: DIS: SPEC #: [id number] RECD: 09/23/21 14:42 STATUS: DARIUS MARCO A #: [id number] LEIGHANN: 09/23/21 00:[address]: Diane Eugene DEPT: CYTOLOGY RECD BY: Aixa Baker ENTERED: 09/26/21 08:13 SP TYPE: Fluid OTHR DR: Dr. Lobito Isaac MD Tissues: THORACIC FLUID Procedures: Special Stain Group II Surgery Specimen Level IV Cytospin Fluid HEADER OPERATION: Ultrasound-guided right thoracentesis PRE-OP DIAGNOSIS: Right pleural effusion TISSUE SUBMITTED: Thoracentesis fluid for cytology DIAGNOSIS CYTOLOGY Thoracentesis fluid for cytology (cytospin and cell block): Positive for malignant cells, metastatic non-small cell carcinoma. See comment. AM:richie 09/27/2021 COMMENT Immunohistochemistry ([id number]) supports the above diagnosis and favors a renal primary. Clinical correlation is necessary. Reference is made to the patient?s left neck biopsy ([id number]) in which a metastatic carcinoma of renal origin was identified. Case has been reviewed in consultation with Dr. Adler who concurs with the above diagnosis. IDC:SJ CYTOLOGY STUDY Slides are reviewed. CYTOLOGY GROSS Received is 90 ml of cloudy gold fluid labeled with the patient's name and and designated per the requisition as thoracentesis. Submitted for cytology preparation including cell block. / richie 09/26/2021 TC:0 CPT: 80131, 65610
--- NOTE | 2021-09-23 13:52 | US_ITS ---
PROCEDURE: ULTRASOUND GUIDED THORACENTESIS. DATE: 09/23/2021. INDICATION: Male, 76 years old. Right pleural effusion. PHYSICIAN: Roberto Carlos Street M.D. PROCEDURE: The risks, benefits, and alternatives to the procedure were explained to the patient. The specific risks of bleeding, infection, and pneumothorax requiring chest tube insertion were discussed and accepted. Written informed consent was obtained. Ultrasonographic evaluation of the right lower pleural space was carried out. An adequate pocket was identified. The patient was placed in the sitting, upright position. The overlying skin was prepped and draped in sterile fashion. 1% lidocaine was administered subcutaneously for local anesthesia. Under ultrasound guidance, a 5French thoracentesis needle/catheter system was advanced into the right posterior lower pleural fluid collection. Approximately 600 mL of paxton-colored fluid was drained. The catheter was removed, and a sterile dressing was applied. A specimen was collected and sent to the laboratory for analysis, as requested by the referring clinician. The patient tolerated the procedure well. A chest x-ray was ordered. US/Thoracentesis W US IMPRESSION: Ultrasound-guided right thoracentesis. Electronically Signed: Roberto Carlos Street MD at 15:15 EDT , Service support ,
[2021-09-23 14:25] VITALS: BP 109/70; BP 94/66; BP 99/70; PULSE 87; PULSE 88; RESP 16; O2SAT 97
[2021-09-23] MEDS: Lidocaine 2% (20 ml mdv) 20 ML Vial INFILT (14:25)
--- NOTE | 2021-09-23 14:25 | RAD_ITS ---
STUDY: X-RAY CHEST REASON FOR EXAM: Male, 76 years old. POST THORA TECHNIQUE: AP inspiration and expiration views. COMPARISON: Comparison is made with prior study dated 09/22/2021. FINDINGS: The patient is status post right thoracentesis. There is no evidence of pneumothorax. RAD/Chest Insp/Exp 2 View IMPRESSION: No evidence of pneumothorax on the post right thoracentesis. Electronically Signed: Roberto Carlos Street MD at 14:38 EDT , Service support ,
[2021-09-23 14:40] LABS: Cytology, Body Fluid / CSF SEE PATHOLOGY REPORT
[2021-09-23 15:44] LABS: LDH,Body Fluid 963 Units/l (Not Establ.); Protein, Body Fluid 4.7 g/dL (Not Establ.)
== END | disposition home or self-care (01) ==
PROVIDERS: PCP Family Medicine; Referring Provider Internal Medicine Hematology & Oncology; Visit Provider Internal Medicine Hematology & Oncology
DX: J90 Pleural effusion, not elsewhere classified (principal); R18.8 Other ascites; R60.1 Generalized edema
CPT/HCPCS: 32555; 71046; 83615; 84157; 88108; 88305; 88313; 88341; 88342

== ENCOUNTER → 2021-09-28 12:14 | Outpatient (CLI) | payer MEDICARE, SELFPAY ==
--- NOTE | 2021-09-28 12:15 | US_ITS ---
PROCEDURE: Ultrasound guided paracentesis. DATE OF EXAMINATION: 09/28/2021. INDICATION: Male, 76 years old. Ascites. PHYSICIAN: Roberto Carlos Street M.D. TECHNIQUE: The risks, benefits, and alternatives to the procedure were explained to the patient. The specific risks of bleeding, infection, and damage to bowel were detailed and accepted. Witnessed informed consent was obtained. The abdomen was ultrasonographically surveyed. An appropriate pocket of fluid was identified at the right lower quadrant. The skin were cleaned and prepped in the usual sterile fashion. Using ultrasound guidance, the peritoneal cavity was accessed with a 5-Croatian paracentesis needle/catheter system. The trocar was removed. A total of 6050 ml of paxton-colored fluid were removed from the peritoneal cavity. The catheter was removed and a sterile dressing was applied. The procedure was well tolerated. US/Paracentesis with US IMPRESSION: Ultrasound guided paracentesis. Electronically Signed: Roberto Carlos Street MD at 14:05 EST , Service support ,
--- NOTE | 2021-09-28 12:30 | FLU_PTH ---
PATIENT: STEPHEN CHILDRESS LOC: U#:[id number] AGE/SX: 80/M ROOM: RE09/28/[address]: Dr. Diane Eugene MD : 1945 BED: DIS: SPEC #: [id number] RECD: 09/29/21 06:00 STATUS: DARIUS GUERRERONisreen #: [id number] LEIGHANN: 09/28/21 12:[address]: Diane Eugene DEPT: CYTOLOGY RECD BY: Aixa Baker ENTERED: 09/29/21 12:12 SP TYPE: Fluid OTHR DR: Dr. Lobito Isaac MD Tissues: PARACENTESIS FLUID Procedures: Special Stain Group II Surgery Specimen Level IV Cytospin Fluid HEADER OPERATION: Paracentesis PRE-OP DIAGNOSIS: Ascites TISSUE SUBMITTED: Paracentesis fluid for cytology DIAGNOSIS CYTOLOGY Paracentesis fluid for cytology (cytospin): Malignant cells present derived from non-small cell carcinoma. See comment. SJ:richie 09/30/2021 COMMENT Clinical correlation and appropriate follow up are necessary. Please make reference to previous specimens ([id number]) left neck mass, biopsy with diagnosis of ?metastatic non-small cell carcinoma? and ([id number]) thoracentesis fluid for cytology with diagnosis of ?positive for malignant cells, metastatic non-small cell carcinoma.? CYTOLOGY STUDY Slides are reviewed. CYTOLOGY GROSS Received is 86 ml of cloudy yellow fluid labeled with the patient's name and and designated per the requisition as paracentesis. Submitted for cytology preparation including cell block. / richie 09/29/2021 TC:0 CPT: 90657, 07019
[2021-09-28 12:32] VITALS: BP 82/54; BP 87/54; BP 87/55; BP 88/59; BP 89/63; PULSE 79; PULSE 80; RESP 18; TEMP 36.1; TEMP 36.2; O2SAT 95; O2SAT 96; O2SAT 97; O2SAT 98
[2021-09-28] MEDS: Lidocaine 2% (20 ml mdv) 20 ML Vial INFILT (12:55)
[2021-09-28 13:10] LABS: Cytology, Body Fluid / CSF SEE PATHOLOGY REPORT
[2021-09-28 14:03] LABS: LDH,Body Fluid 1000 Units/l (Not Establ.)
== END | disposition home or self-care (01) ==
PROVIDERS: PCP Family Medicine; Referring Provider Internal Medicine Hematology & Oncology; Visit Provider Internal Medicine Hematology & Oncology
DX: R18.8 Other ascites (principal)
CPT/HCPCS: 49083; 83615; 84157; 88108; 88305; 88313

== ENCOUNTER 2021-09-29 14:37 | Inpatient (IN) | payer MEDICARE, SELFPAY ==
[2021-09-29] VITALS (8 sets, daily range): BP systolic 79–121; BP diastolic 54–64; PULSE 75–83; RESP 14–22; TEMP 36–36.6; O2SAT 92–99; BMI 22.2; BMI 22.4
--- NOTE | 2021-09-29 14:57 | RAD_ITS ---
STUDY: X-RAY CHEST REASON FOR EXAM: Male, 76 years old. Hypotension and dehydration. TECHNIQUE: PA and lateral views of the chest. COMPARISON: 09/23/2021. FINDINGS: Stable right jugular Port-A-Cath. The lungs are hypoexpanded. There is diffuse interstitial changes again noted throughout both lung bases. There is no pneumothorax. There is no new mass or infiltrate. There is no demonstrated pleural abnormality. Normal size heart. There is no change in the mediastinum, kathy, pulmonary arteries or aorta. No osseous changes. There is no demonstrated abnormality of the visualized soft tissue structures of the upper abdomen. RAD/Chest PA and Lateral IMPRESSION: No major interval change. Electronically Signed: Davis Chandler DO at 16:50 EST Tel [phone], Service support ,
--- NOTE | 2021-09-29 15:11 | EX.ED.DYSGE1 ---
HPI History of Present Illness Chief Complaint: Hypotension Narrative Narrative: Patient presenting for evaluation secondary to dehydration and hypotension. Patient has a underlying history of metastatic renal cancer. He is on oral immunotherapy, and recently had a thoracentesis of about 600 cc a week ago, and a paracentesis of about 6 L yesterday. Patient presented to the office for follow-up today. He was noted to be extremely generally weak, dehydrated, and hypotensive. Initially on presentation to the office he had systolic blood pressures in the 50s, lab tests were drawn in the office he was given a liter of saline and had improvement of his blood pressures into the 70s. Other than feeling generally weak patient states that he mainly is not having any other symptoms. Denies any cough shortness of breath fever. He has had some mild nausea and vomiting with occasional loose stools. Denies any chest pain associated with this. Patient does have a history of DVT on anticoagulation but had to be off of his anticoagulation for about a week for his thoracentesis and paracentesis. Patient's manager surgery oncologist recommended that he come to the emergency department for further rehydration and likely admission. 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 Mucositis due to antineoplastic therapy Multiple premature ventricular complexes Nasal bleeding [facility] Regional lymph node metastasis present Rotator cuff arthropathy of right shoulder Senile purpura Spinal stenosis Home Medications omeprazole 40 mg PO DAILY 02/07/14 [History Last Taken 12/27/20] triamcinolone acetonide 1 applic TOPICAL DAILY PRN 02/07/14 [History Last Taken 12/26/20] atorvastatin 20 mg PO QHS 11/10/17 [History Last Taken 12/26/20] metoprolol succinate 100 mg PO DAILY 11/10/17 [History Last Taken 12/27/20] icosapent ethyl 2 gm PO BID 10/14/20 [History Last Taken 12/26/20] levocetirizine 5 mg PO DAILY 10/14/20 [History Last Taken 12/26/20] cholecalciferol (vitamin D3) 25 mcg PO BID 11/29/20 [History Last Taken 12/26/20] coenzyme Q10 200 mg PO DAILY 11/29/20 [History Last Taken 12/26/20] cyanocobalamin (vitamin B-12) 500 mcg PO BID 11/29/20 [History Last Taken 12/26/20] vit C,H-Ql-jlget-lutein-zeaxan 1 each PO QHS 11/29/20 [History Last Taken 12/26/20] zinc 50 mg PO DAILY 11/29/20 [History Last Taken 12/26/20] acetaminophen 500 mg PO Q4H PRN PRN tablet 12/03/20 [Rx Last Taken 12/26/20] lidocaine-prilocaine 1 applic TP DAILY PRN PRN 30 Days #1 tube 12/20/20 [Rx Last Taken 12/26/20] ondansetron 8 mg PO Q8H PRN PRN 10 Days #30 tab.rapdis 02/17/21 [Rx Last Taken Unknown] rivaroxaban 20 mg PO DAILY #90 tablet 03/03/21 [Rx Last Taken Unknown] magnesium oxide 400 mg (241.3 mg magnesium) tablet 400 mg PO DAILY #90 tab 04/15/21 [Rx Last Taken Unknown] MAGIC MOUTH WASH (BMX) 15 ml BUCCAL 4X/DAY #180 ml 05/10/21 [Rx Last Taken Unknown] prochlorperazine maleate 10 mg PO Q6H PRN #60 tab 05/24/21 [Rx Last Taken Unknown] albuterol sulfate 90 mcg/actuation aerosol inhaler 2 puff INHALATION Q4H PRN #8.5 gm 07/20/21 [Rx Last Taken Unknown] azelastine-fluticasone 137 mcg-50 mcg/spray nasal spray 1 spray INTRANASAL BID #3 each 07/20/21 [Rx Last Taken Unknown] budesonide-formoterol HFA 160 mcg-4.5 mcg/actuation aerosol inhaler 2 puff INHALATION BID #10.2 gm 07/20/21 [Rx Last Taken Unknown] montelukast 10 mg tablet 10 mg PO QPM #90 tab 07/20/21 [Rx Last Taken Unknown] prednisone 10 mg tablet See Rx Instructions PO DAILY #30 tab 07/20/21 [Rx Last Taken Unknown] tiotropium bromide 1.25 mcg/actuation mist for inhalation 2 puff INHALATION DAILY #3 ea 07/20/21 [Rx Last Taken Unknown] tramadol 50 mg tablet 50 mg PO Q6H PRN 07/26/21 [History Last Taken Unknown] furosemide 20 mg tablet 20 mg PO .3 days week #50 tab 07/27/21 [Rx Last Taken Unknown] Saliva Max packet PO DAILY 08/23/21 [History Last Taken Unknown] losartan 25 mg tablet 25 mg PO DAILY #30 tab 09/12/21 [Rx Last Taken Unknown] Allergy/AdvReac Type Severity Reaction Status Date / Time celecoxib [From Celebrex] Allergy Mild Swelling Verified 09/29/21 14:45 meloxicam Allergy Mild Swelling Verified 09/29/21 14:45 pembrolizumab AdvReac Severe Pneumonia Verified 09/29/21 14:45 adhesive tape AdvReac Mild Skin Tears Verified 09/29/21 14:45 very easily Family History Sister Skin cancer (melanoma) Surgical History History of thoracentesis (09/23/21) S/P biopsy Social History household members: spouse housing: house Smoking Status: Never smoker alcohol intake: never substance use type: does not use well-balanced diet: daily or most days caffeine: Yes Type: coffee Number of servings: 1 eating out: rarely or never sahara/buddhist: Nazarene seatbelt use: always do you feel safe at home: Yes ROS ROS ED Constitutional Constitutional ED: Reports other Details: Generalized weakness ENT ENT ED: Denies rhinorrhea Cardiovascular Cardiovascular: Denies chest pain Respiratory/Chest Respiratory/Chest: Denies cough or dyspnea Gastrointestinal Gastrointestinal: Denies abdominal pain, diarrhea, nausea or vomiting Genitourinary Genitourinary ED: Denies dysuria or hematuria Musculoskeletal Musculoskeletal: Reports other Details: Lower extremity edema Integumentary Denies rash Neurologic Neurologic: Denies paresthesias or weakness Psychiatric Psychiatric: Denies depression Endocrine Endocrinology: Denies fatigue Allergic/Immunologic Allergic/Immunologic ED: Denies urticaria EXAM Physical Exam Const Vital Signs: 09/29/21 14:38 09/29/21 14:46 Temperature 97.8 F Temperature Source Temporal Pulse Rate 83 Respiratory Rate 14 Respiratory Effort Normal Non-Labored Respiratory Pattern Normal Blood Pressure 84/59 L Blood Pressure Mean 67 Pulse Ox 99 Oxygen Delivery Method Room Air Positive well nourished and well developed General Appearance ED: well developed and NAD HEENT Reports dry mucous membranes Negative for trauma or tenderness Mouth ED: Yes dry mucous membranes Mouth: dry mucous membranes Eyes EOMs intact bilaterally Neck no lymphadenopathy, supple and no JVD Chest Wall inspection of chest normal Resp normal respiratory effort and clear to auscultation bilaterally Cardio regular rate, regular rhythm, no murmurs and peripheral pulses 2+ throughout GI normal to inspection, nondistended, normoactive bowel sounds, non-tender and no masses Palpation: soft Back/Spine normal to inspection Extremity normal to inspection Extremity Narrative: 1+ lower extremity pitting edema noted General Extremety ED: Yes edema; Negative for tenderness General Extremity: edema Neuro oriented x3 and no sensory deficits noted Sensorium / Orientation: alert Motor Exam: strength 5/5 throughout Psych mental status grossly normal Skin no rashes or lesions noted MDM MDM MDM Narrative Medical decision making narrative: Patient presented secondary to dehydration. He does appear dehydrated, is slightly hypotensive he was started on fluid resuscitation. I reviewed his records, he has an elevation of his creatinine to 1.9 with an elevation of his BUN indicative of prerenal azotemia likely secondary to his paracentesis. I added on a chest x-ray urinalysis lactic acid on the patient. Discussed patient with the hospitalist. Patient will be admitted for further treatment. Discharge Plan Triage Chief Complaint: Hypotension ED Provider: Bowen Mcconnell Dx/Rx/DC Orders Clinical Impression: Dehydration Prescriptions: No Action magnesium oxide [MagOx] 400 mg (241.3 mg magnesium) tablet 400 mg PO DAILY Qty: 90 RF: 2 albuterol sulfate 90 mcg/actuation HFA aerosol inhaler 2 puff INHALATION Q4H PRN (Reason: shortness of breath or wheezing) Qty: 8.5 RF: 6 azelastine-fluticasone 137-50 mcg/spray spray,non-aerosol 1 spray INTRANASAL BID Qty: 3 RF: 3 budesonide-formoterol 160-4.5 mcg/actuation HFA aerosol inhaler 2 puff INHALATION BID Qty: 10.2 RF: 6 montelukast [Singulair] 10 mg tablet 10 mg PO QPM Qty: 90 RF: 3 Spiriva Respimat 1.25 mcg/actuation mist 2 puff inhalation DAILY Qty: 3 RF: 3 prednisone 10 mg tablet See Rx Instructions PO DAILY Qty: 30 RF: 0 tramadol 50 mg tablet 50 mg PO Q6H PRNRF: 0 Saliva Max packet PO DAILY RF: 0 omeprazole 40 MG capsule 40 mg PO DAILY RF: 0 triamcinolone acetonide 1 APPLIC cream 1 applic TOPICAL DAILY PRN (Reason: skin) RF: 0 atorvastatin 20 MG tablet 20 mg PO QHS RF: 0 metoprolol succinate 50 MG tablet 100 mg PO DAILY RF: 0 levocetirizine 5 MG tablet 5 mg PO DAILY RF: 0 icosapent ethyl 1 GM capsule 2 gm PO BID RF: 0 lidocaine-prilocaine 30 GM cream 1 applic TP DAILY PRN PRN (Reason: Not Specified) 30 Days Qty: 1 RF: 2 ondansetron 8 MG tablet,disintegrating 8 mg PO Q8H PRN PRN (Reason: Nausea) 10 Days Qty: 30 RF: 3 rivaroxaban 20 MG tablet 20 mg PO DAILY Qty: 90 RF: 4 MAGIC MOUTH WASH (BMX) 180 mL Suspension 15 ml buccal 4X/DAY Qty: 180 RF: 3 prochlorperazine maleate 10 mg Tablet 10 mg PO Q6H PRN (Reason: Nausea) Qty: 60 RF: 3 cyanocobalamin (vitamin B-12) 500 MCG tablet 500 mcg PO BID RF: 0 zinc 50 MG tablet 50 mg PO DAILY RF: 0 coenzyme Q10 100 MG capsule 200 mg PO DAILY RF: 0 cholecalciferol (vitamin D3) 25 MCG tablet 25 mcg PO BID RF: 0 vit C,O-Md-gapww-lutein-zeaxan 1 EACH capsule 1 each PO QHS RF: 0 acetaminophen 500 MG tablet 500 mg PO Q4H PRN PRN (Reason: Pain Score 1-5/10) RF: 0 furosemide [Lasix] 20 mg tablet 20 mg PO .3 days week Qty: 50 RF: 4 losartan 25 mg tablet 25 mg PO DAILY Qty: 30 RF: 4 Primary Care Provider: Lobito Isaac Referrals: Lobito Isaac MD [Primary Care Provider] - Disposition Disposition: Acute Care Hospital [facility]
[2021-09-29] MEDS: 0.9% Normal Saline 1,000 ML 1000 ML IV (15:24)
[2021-09-29 15:51] LABS: Lactic Acid 1.5 mmol/L (0.4-1.9)
--- NOTE | 2021-09-29 16:09 | PCM.HP.STD ---
HPI - General General Date of Admission: 09/29/21 Date of Service: 09/29/21 Chief Complaint: Hypotension, Dehydration HPI Narrative STEPHEN CHILDRESS, is a 76 M who presents to the emergency room at [facility] after being sent over by his oncologist due to a low blood pressure and abnormal labs which showed the patient to be dehydrated. Patient was given 1 L of fluid and his oncologist office today but he remained hypotensive and was sent over for evaluation to the emergency room at [facility]. Patient has a history of metastatic renal cancer and is currently receiving Cabozantinib since March 2021, at this time, this medication is on hold as of this month due to increasing fatigue and failing performance status. Patient's blood pressure in the emergency room was 84/59 on admission to the ER. Lab obtained today included a CBC which showed a slightly low hemoglobin at 12.3, patient's chemistry profile was remarkable for sodium of 131, creatinine of 1.99, BUN of 83, and magnesium of 1.3. Patient was given IV fluids in the emergency room, he will be admitted to [place] [id number] for dehydration and hypotension. I had a discussion with the patient and his regarding his CODE STATUS, he has agreed to a DNR CC arrest with no intubation status. I think that this is appropriate. 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 Mucositis due to antineoplastic therapy Multiple premature ventricular complexes Nasal bleeding [employer] Regional lymph node metastasis present Rotator cuff arthropathy of right shoulder Senile purpura Spinal stenosis Home Medications omeprazole 40 mg PO DAILY 02/07/14 [History Last Taken 12/27/20] atorvastatin 20 mg PO QHS 11/10/17 [History Last Taken 12/26/20] icosapent ethyl 2 gm PO BID 10/14/20 [History Last Taken 12/26/20] levocetirizine 5 mg PO DAILY 10/14/20 [History Last Taken 12/26/20] cholecalciferol (vitamin D3) 25 mcg PO BID 11/29/20 [History Last Taken 12/26/20] coenzyme Q10 200 mg PO DAILY 11/29/20 [History Last Taken 12/26/20] vit C,Q-Ei-faunj-lutein-zeaxan 1 each PO QHS 11/29/20 [History Last Taken 12/26/20] zinc 50 mg PO DAILY 11/29/20 [History Last Taken 12/26/20] lidocaine-prilocaine 1 applic TP DAILY PRN PRN 30 Days #1 tube 12/20/20 [Rx Last Taken 12/26/20] ondansetron 8 mg PO Q8H PRN PRN 10 Days #30 tab.rapdis 02/17/21 [Rx Last Taken Unknown] rivaroxaban 20 mg PO DAILY #90 tablet 03/03/21 [Rx Last Taken Unknown] magnesium oxide 400 mg (241.3 mg magnesium) tablet 400 mg PO DAILY #90 tab 04/15/21 [Rx Last Taken Unknown] albuterol sulfate 90 mcg/actuation aerosol inhaler 2 puff INHALATION Q4H PRN #8.5 gm 07/20/21 [Rx Last Taken Unknown] azelastine-fluticasone 137 mcg-50 mcg/spray nasal spray 1 spray INTRANASAL BID #3 each 07/20/21 [Rx Last Taken Unknown] budesonide-formoterol HFA 160 mcg-4.5 mcg/actuation aerosol inhaler 2 puff INHALATION BID #10.2 gm 07/20/21 [Rx Last Taken Unknown] montelukast 10 mg tablet 10 mg PO QPM #90 tab 07/20/21 [Rx Last Taken Unknown] tiotropium bromide 1.25 mcg/actuation mist for inhalation 2 puff INHALATION DAILY #3 ea 07/20/21 [Rx Last Taken Unknown] tramadol 50 mg tablet 50 mg PO Q6H PRN 07/26/21 [History Last Taken Unknown] furosemide 20 mg tablet 20 mg PO .3 days week #50 tab 07/27/21 [Rx Last Taken Unknown] losartan 25 mg tablet 25 mg PO DAILY #30 tab 09/12/21 [Rx Last Taken Unknown] acetaminophen 1,000 mg PO Q4H PRN PRN 09/29/21 [History Last Taken 09/29/21] ascorbic acid (vitamin C) 250 mg PO DAILY 09/29/21 [History Last Taken 09/29/21] cabozantinib [Cabometyx] 40 mg PO DAILY 09/29/21 [History Last Taken 09/22/21] cyanocobalamin (vitamin B-12) 1,000 mcg PO BID 09/29/21 [History Last Taken 09/29/21] fluticasone propionate 2 spray INTRANASAL BID 09/29/21 [History Last Taken 09/28/21] folic acid 0.4 mg PO DAILY 09/29/21 [History Last Taken 09/25/21] metoprolol succinate 100 mg PO DAILY 09/29/21 [History Last Taken 09/29/21] Allergy/AdvReac Type Severity Reaction Status Date / Time celecoxib [From Celebrex] Allergy Mild Swelling Verified 09/29/21 14:45 meloxicam Allergy Mild Swelling Verified 09/29/21 14:45 pembrolizumab AdvReac Severe Pneumonia Verified 09/29/21 14:45 adhesive tape AdvReac Mild Skin Tears Verified 09/29/21 14:45 very easily Family History Sister Skin cancer (melanoma) Surgical History History of thoracentesis (09/23/21) S/P biopsy Social History household members: spouse housing: house Smoking Status: Never smoker alcohol intake: never substance use type: does not use well-balanced diet: daily or most days caffeine: Yes Type: coffee Number of servings: 1 eating out: rarely or never sahara/christian: Nazarene seatbelt use: always do you feel safe at home: Yes ROS Constitutional Constitutional: Reports fatigue and weakness; Denies anorexia, change in weight, fever(s) or night sweats Eyes Eyes: Denies blurry vision, change in vision, discharge from eye(s) or eye pain Cardiovascular Cardiovascular: Denies chest pain, claudication, edema or palpitations Respiratory/Chest Respiratory/Chest: Denies cough, hemoptysis, shortness of breath at rest or shortness of breath with exertion Gastrointestinal Gastrointestinal: Denies abdominal pain, constipation, diarrhea, hematemesis, hematochezia, melena, nausea or vomiting Genitourinary Genitourinary: Denies dysuria, hematuria, urinary frequency, urinary hesitancy, urinary incontinence or urinary urgency Musculoskeletal Musculoskeletal: Denies back pain, joint pain, joint stiffness, joint swelling, myalgias or neck pain Neurologic Neurologic: Denies abnormal gait, abnormal speech, dizziness, focal weakness, headache(s), loss of vision, numbness, other visual disturbances, paresthesias, syncope or tingling Psychiatric Psychiatric: Denies anxiety, cognitive impairment, depression, irritability, mood swings or suicidal ideation Endocrine Endocrinology: Denies change in body appearance, cold intolerance, excessive sweating, heat intolerance, polydipsia or polyuria Hematologic/Lymphatic Hematologic/Lymphatic: Denies none, anemia, easy bleeding, easy bruising or lymphadenopathy Allergic/Immunologic Allergic/Immunologic: Denies rhinitis, urticaria or eczemia Vital Signs Vital Signs Vital Signs: 09/29/21 14:38 09/29/21 14:46 Temperature 97.8 F Temperature Source Temporal Pulse Rate 83 Respiratory Rate 14 Respiratory Effort Normal Non-Labored Respiratory Pattern Normal Blood Pressure 84/59 L Blood Pressure Mean 67 Pulse Ox 99 Oxygen Delivery Method Room Air Weight Weight: 62.596 kg Body Mass Index (BMI) 22.2 Physical Exam Const alert, oriented x3 and no apparent distress Constitutional Narrative: Patient appears his stated age, he appears frail and weak General Appearance: cooperative, well kempt and well developed Orientation / Consciousness: awake, oriented to person, oriented to place and oriented to time HEENT normocephalic, head/scalp atraumatic, hearing grossly normal bilaterally and moist oral mucous membranes Eyes PERRL, EOMs intact bilaterally and conjunctivae normal Neck nuchal rigidity, supple, no JVD, thyroid normal and no carotid bruits General: trachea midline Resp normal respiratory effort, no retractions, no use of accessory muscles and clear to auscultation bilaterally Auscultation: Negative for rales, rhonchi or wheezes Cardio regular rate, regular rhythm, S1 normal heart sound, S2 normal heart sound, no murmurs, no rub and no gallops GI normal to inspection, nondistended, normoactive bowel sounds, soft to palpation, non-tender and non-distended Extremity no clubbing, cyanosis or edema Skin no rashes or lesions noted General Skin Exam: no breakdown Neuro oriented x3, CN's II-XII intact bilaterally, no focal motor deficits and no sensory deficits noted Sensorium / Orientation: awake and alert Speech: speech normal Psych thought process normal and affect normal Results Lab / Micro Data Labs: Laboratory Results - last 24 hr 09/29/21 15:18: Lactic Acid 1.5 Assessment & Plan Assessment/Plan (1) Hypotension: PLAN: 1. Hypotension-probably secondary to dehydration, patient will be admitted to [facility] 3, he will be given IV fluids, labs will be monitored #2 dehydration-again patient will be given IV fluids, labs will be monitored #3 metastatic renal cancer-patient is currently not receiving any treatment this month due to poor performance status, again patient has agreed to a DNR CC arrest no intubation CODE STATUS #4 hypomagnesemia-patient will be given IV magnesium, magnesium level will be rechecked #5 chronic ascites secondary to metastatic renal cell cancer-patient underwent an ultrasound-guided paracentesis yesterday, 6050 cc of fluid was removed. #6 recent right pleural effusion secondary to metastatic renal cell cancer-patient underwent a thoracentesis on 09/23/2021 with removal of 600 cc of fluid #7 chronic anticoagulation with Xarelto-secondary to previous history of VTE Prognosis is overall poor due to metastatic renal cell cancer with failure of immunotherapy treatment. I do not believe the patient should be placed in the ICU and placed on pressors, we will administer fluids and see if he responds to this. Charges/Coding Visit Charges Inpatient E&M: 25173 Init Hosp L3
[2021-09-29 16:18] LABS: Bacteria 0 SEEN /hpf (None Seen); Mucous, Urine 0 SEEN /hpf (<or=2+); Red Blood Cells-Urine 0 SEEN /hpf (0-5)
[2021-09-29 16:24] LABS: Color, Urine Yellow (Yellow); Glucose, Dipstick Normal (Normal); Ketone-Dipstick 5 mg/dl (Negative); Leukocyte Esterase-Dipstick Negative /ul (Negative); Nitrite-Dipstick Negative (Negative); Occult Blood-Urine Negative /ul (Negative); Protein-Dipstick 15 mg/dl (Negative); Specific Gravity, Urine 1.015 (1.002-1.030); Urine Clarity Sl. Cloudy (Clear); Urine Urobilinogen 1 mg/dl (Normal)
[2021-09-29 16:37] LABS: Urine Bilirubin Dipstick 1 mg/dL (Negative)
[2021-09-29 16:39] LABS: Squamous Epithelial Cells - UA 0-5 SEEN /hpf (0-5); White Blood Cells 0-5 SEEN /hpf (0-5)
--- NOTE | 2021-09-29 19:04 | PCS.PANDOC ---
PANDEMIC DOCUMENTATION INITIATED: Date: 09/29/21 Time: 1800
[2021-09-29] MEDS: Albuterol 2.5 MG/3 ML VIAL.NEB. INHALATION (19:49)
[2021-09-29] MEDS: Budesonide Respules 0.5 MG/2 ML AMPUL.NEB. INHALATION (19:49)
[2021-09-29] MEDS: 0.9% Normal Saline 1,000 ML 125 ML IV (20:12)
[2021-09-29] MEDS: Rivaroxaban 20 MG Tablet PO (20:25)
[2021-09-29] MEDS: Cyanocobalamin 500 MCG Tablet PO (21:59)
[2021-09-29] MEDS: Atorvastatin Calcium 20 MG Tablet PO (21:59)
[2021-09-30] VITALS (8 sets, daily range): BP systolic 87–105; BP diastolic 53–73; PULSE 80–111; RESP 16–20; TEMP 36.1–36.4; O2SAT 93–100
[2021-09-30] MEDS: 0.9% Normal Saline 1,000 ML 125 ML IV (05:53)
[2021-09-30] MEDS: Albuterol 2.5 MG/3 ML VIAL.NEB. INHALATION ×3 (06:31→18:48)
[2021-09-30] MEDS: Budesonide Respules 0.5 MG/2 ML AMPUL.NEB. INHALATION ×2 (06:31→18:48)
[2021-09-30 07:34] LABS: Absolute Lymphocyte Count 0.33 X10^3/uL (0.83-4.51); Absolute Neutrophil Count 5.1 X10^3/uL (2.0-7.7); Basophil# 0.01 X10^3/uL; Basophil% 0.2 % (0-1); Eosinophil# 0.14 X10^3/uL; Eosinophils% 2.4 % (0-5); Hematocrit 34.9 % (40-54); Hemoglobin 12.1 g/dL (13.0-16.5); Lymphocyte # 0.33 X10^3/ul (0.83-4.51); Lymphocyte % 5.6 % (19-41); Mean Corp Hgb Conc 34.7 g/dL (32-36); Mean Corpuscular Hgb 37.6 pg (27.0-32.0); Mean Corpuscular Volume 108.4 fL (80-94); Mean Platelet Vol. 10.3 fl (6.2-12.0); Monocyte# 0.31 X10^3/uL; Monocyte% 5.2 % (0-10); NRBC Flagged by Analyzer 0 % (0-5); Neutrophil # 5.11 X10^3/uL (2.7-7.7); Neutrophil % 86.3 % (47-70); POSITIVE DIFFERENTIAL YES; Platelet Count 240 K/mm3 (150-450); RBC Distribution Width CV 14.7 % (11.6-14.6); RBC Distribution Width SD 59.4 fl (35.1-43.9); Red Blood Count 3.22 M/mm3 (4.6-6.2); White Blood Count 5.9 K/mm3 (4.4-11.0)
[2021-09-30 07:36] LABS: Differential Indicated SCAN CRITERIA MET
[2021-09-30 08:00] LABS: ALB/GLOB Ratio 0.3 RATIO (0.9-2.4); AST(SGOT) 29 U/L (15-37); Alanine Aminotransfer ALT/SGPT 23 U/L (16-61); Albumin, Serum 1.2 g/dL (3.2-5.0); Alkaline Phosphatase 72 U/L (45-117); Anion Gap 7 (5-15); BUN 66 mg/dL (7-18); BUN/Creat Ratio 55.5 RATIO (10-20); Calcium,Total 7.6 mg/dL (8.5-10.1); Chloride 106 mmol/L (98-107); Creatinine, Serum 1.19 mg/dL (0.70-1.30); EST Glomerular Filtration Rate 63 mL/min (>60); Est Glom Filt Rate - Afr Amer 76 mL/min (>60); Estimated Creatinine Clearance 46.91 ml/min; Globulin 3.5 g/dL (2.2-4.2); Glucose 96 mg/dL (74-106); Magnesium 1.8 mg/dL (1.6-2.6); Potassium 3.8 mmol/L (3.5-5.1); Protein, Total 4.7 g/dL (6.4-8.2); Sodium Level 134 mmol/L (136-145)
[2021-09-30] MEDS: Magnesium Chloride 64 MG Delay Rel.Tablet 128 MG PO (10:03)
[2021-09-30] MEDS: Midodrine HCl 5 MG Tablet PO ×3 (10:03→16:39)
[2021-09-30] MEDS: Pantoprazole Sodium 40 MG Tablet PO (10:03)
[2021-09-30] MEDS: Cyanocobalamin 500 MCG Tablet PO ×2 (10:04→21:33)
--- NOTE | 2021-09-30 11:36 | CASEMGMT ---
Pt screened with [facility] Palliative Care Screening Tool per MD request, pt met criteria. Faxed referral. Marlee Mcleod here and was already aware of referral.
--- NOTE | 2021-09-30 11:39 | PCM.CONS.P ---
Assessment & Plan Assessment/Plan (1) Weakness: (2) Cancer of right kidney: (3) Metastasis to mediastinal lymph node: (4) Regional lymph node metastasis present: (5) History of abdominal paracentesis: (6) History of thoracentesis: (7) Hypotension: (8) Dehydration: (9) Ascites: QUALIFIERS: Ascites type: malignant Qualified Code(s): R18.0 - Malignant ascites (10) Omental metastasis: (11) Lung nodules: (12) CRF (chronic renal failure): PLAN: 76-year-old male with metastatic renal cell carcinoma, seen today for palliative care consultation for symptom management of weakness, debility, and vomiting. 1. Debility and weakness: He is receiving therapy while in the hospital. continue to monitor. Goal is to return home with his . He is receiving IV fluids, which are helping somewhat. Still hypotensive. 2. Metastatic renal cell carcinoma: Following with Dr. Eugene. See HPI. Defer management to oncology, patient does have a poor prognosis and is palliative appropriate, however he would like to let all this new information about his disease process so again before making any decisions. They are appreciative of the information given and contact information given for to call if they feel they want to enroll in palliative. Would continue with Zofran, if ineffective could try Phenergan, however more sedating. Also could try low-dose olanzapine and see how he does on that. 3. Recent thoracentesis and paracentesis/hypotension/dehydration/ascites/lung nodules/CKD: Complicates overall care, management, recovery, and prognosis. Defer management to PCP/hospitalist/oncology. We would be happy to follow the patient as an outpatient if he decides to enroll in palliative or hospice services, pending future course of response to therapy. Thank you for the opportunity to participate in this patient's care, please do not hesitate to contact [facility] with any further questions or concerns. Palliative direct line is [phone]. His will contact us if she is interested in hearing more about palliative or hospice services. Contact information given to her. Greater than 50% of F2F visit dedicated to education and counseling of palliative care services, medications, comorbid conditions and potential assistance with management, and plan of care moving forward. Start time: 1130 End time: 1225 HPI Consult Data Date of Consult: 09/30/21 HPI Narrative HPI Narrative: STEPHEN CHILDRESS, is a 76 M PMH as below, who presented to [facility] 09/29/2021 with complaints of dehydration and hypotension, sent from his oncologist office, Dr. Eugene. He also had abnormal labs. Patient has history of metastatic renal cell carcinoma and currently receiving Cabozantinib since March 2021. Patient has been experiencing more fatigue and weakness, some medication on hold. Chest x-ray upon admission showed nothing acute. He was admitted for further evaluation and management. Patient diagnosed with renal cell carcinoma September 2020. Further testing in the next few months indicated several metastases. He has had significant ascites requiring paracentesis, last one September 29 where 6050 mL drained. He also had a thoracentesis September 23 where 600 mL were drained, cells were positive for malignancy. He has had a very poor appetite and continues to lose weight. Review of oncology notes shows recommendations of stopping Cabo, as needed paracentesis for ascites, follow-up with pulmonary and cardiology, and continue Xarelto indefinitely due to left lower extremity DVT. He may be eligible for third line therapy, pending reevaluation. Patient was given a poor prognosis, palliative recommended. Patient is a DNR CCA/DNI. Patient receiving IV fluids for blood pressure support and dehydration. He still appears a bit dry, however creatinine has improved. Albumin is quite low at 1.2. He did just have paracentesis. Appetite so so. He is feeling a little better today but very fatigued, having hard time keeping eyes open during my visit. Denies any nausea but states he has vomiting off and on at home. He takes ondansetron sublingually. It seems that sometimes when he eats, things come right back up. Has history of GERD. Recent lower extremity edema, especially given DVT. He has bloated in his abdomen distended, no abdominal pain. He does have periodic right flank pain that lasts a few days at a time. Takes Tylenol and tramadol as needed. Having some dizziness with position changes. No syncope or falls at home. No blurred vision. No difficulty urinating for the most part. [facility] Medical History Arthritis Asthma Bilateral lower extremity edema Bunion of right foot Cancer Cancer of right kidney COPD (chronic obstructive pulmonary disease) CRF (chronic renal failure) Deep vein thrombosis of right lower extremity (04/2018) Degenerative joint disease of spine DVT (deep venous thrombosis) Encounter for adjustment and management of vascular access device Encounter for education Essential (primary) hypertension GERD (gastroesophageal reflux disease) History of abdominal paracentesis (09/28/21) Hyperlipidemia Irregular heart beat Irregular heart rhythm Lung nodules Macrocytosis 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 Mucositis due to antineoplastic therapy Multiple premature ventricular complexes Nasal bleeding Non-smoker [employer] Regional lymph node metastasis present Rotator cuff arthropathy of right shoulder Senile purpura Spinal stenosis Home Medications omeprazole 40 mg PO DAILY 02/07/14 [History Last Taken 09/29/21] atorvastatin 20 mg PO QHS 11/10/17 [History Last Taken 09/28/21] icosapent ethyl 2 gm PO BID 10/14/20 [History Last Taken 09/29/21] levocetirizine 5 mg PO DAILY 10/14/20 [History Last Taken 09/29/21] cholecalciferol (vitamin D3) 25 mcg PO BID 11/29/20 [History Last Taken 09/28/21] coenzyme Q10 200 mg PO DAILY 11/29/20 [History Last Taken 09/27/21] vit C,X-Hu-jgcfk-lutein-zeaxan 1 each PO QHS 11/29/20 [History Last Taken 09/28/21] zinc 50 mg PO DAILY 11/29/20 [History Last Taken 09/27/21] lidocaine-prilocaine 1 applic TP DAILY PRN PRN 30 Days #1 tube 12/20/20 [Rx Last Taken 1 Week Ago ~09/22/21] ondansetron 8 mg PO Q8H PRN PRN 10 Days #30 tab.rapdis 02/17/21 [Rx Last Taken 09/28/21] rivaroxaban 20 mg PO DAILY #90 tablet 03/03/21 [Rx Last Taken 09/28/21] magnesium oxide 400 mg (241.3 mg magnesium) tablet 400 mg PO DAILY #90 tab 04/15/21 [Rx Last Taken 09/26/21] albuterol sulfate 90 mcg/actuation aerosol inhaler 2 puff INHALATION Q4H PRN #8.5 gm 07/20/21 [Rx Last Taken 09/28/21] azelastine-fluticasone 137 mcg-50 mcg/spray nasal spray 1 spray INTRANASAL BID #3 each 07/20/21 [Rx Last Taken 09/28/21] budesonide-formoterol HFA 160 mcg-4.5 mcg/actuation aerosol inhaler 2 puff INHALATION BID #10.2 gm 07/20/21 [Rx Last Taken 09/28/21] montelukast 10 mg tablet 10 mg PO QPM #90 tab 07/20/21 [Rx Last Taken 09/28/21] tiotropium bromide 1.25 mcg/actuation mist for inhalation 2 puff INHALATION DAILY #3 ea 07/20/21 [Rx Last Taken 09/28/21] tramadol 50 mg tablet 50 mg PO Q6H PRN 07/26/21 [History Last Taken Unknown] furosemide 20 mg tablet 20 mg PO .3 days week #50 tab 07/27/21 [Rx Last Taken 09/27/21] losartan 25 mg tablet 25 mg PO DAILY #30 tab 09/12/21 [Rx Last Taken 09/28/21] acetaminophen 1,000 mg PO Q4H PRN PRN 09/29/21 [History Last Taken 09/29/21] ascorbic acid (vitamin C) 250 mg PO DAILY 09/29/21 [History Last Taken 09/29/21] cabozantinib [Cabometyx] 40 mg PO DAILY 09/29/21 [History Last Taken 09/22/21] cyanocobalamin (vitamin B-12) 1,000 mcg PO BID 09/29/21 [History Last Taken 09/29/21] fluticasone propionate 2 spray INTRANASAL BID 09/29/21 [History Last Taken 09/28/21] folic acid 0.4 mg PO DAILY 09/29/21 [History Last Taken 09/25/21] metoprolol succinate 100 mg PO DAILY 09/29/21 [History Last Taken 09/29/21] Allergy/AdvReac Type Severity Reaction Status Date / Time celecoxib [From Celebrex] Allergy Mild Swelling Verified 09/29/21 14:45 meloxicam Allergy Mild Swelling Verified 09/29/21 14:45 pembrolizumab AdvReac Severe vomitting Verified 09/29/21 18:42 adhesive tape AdvReac Mild Skin Tears Verified 09/29/21 14:45 very easily Family History Sister Skin cancer (melanoma) Surgical History History of thoracentesis (09/23/21) S/P biopsy Social History household members: spouse housing: house Smoking Status: Never smoker alcohol intake: never substance use type: does not use well-balanced diet: daily or most days caffeine: Yes Type: coffee Number of servings: 1 eating out: rarely or never sahara/mormonism: Nazarene seatbelt use: always do you feel safe at home: Yes ROS ROS Narrative Review of systems otherwise negative from a constitutional, HEENT, respiratory, cardiovascular, GI, genitourinary, musculoskeletal, skin, neurologic, psychiatric and hematologic system unless stated above. Physical Exam Const alert, oriented x3 and no apparent distress General Appearance: cooperative and comfortable Orientation / Consciousness: other Other Details: Very fatigued, falling asleep Nutritional Appearance: cachectic HEENT normocephalic and head/scalp atraumatic Neck supple General: trachea midline Resp Effort and Inspection: able to speak in complete sentences and symmetric chest movement Auscultation: diminished lung sounds Cardio regular rate, regular rhythm, S1 normal heart sound and S2 normal heart sound GI Inspection: edema findings and abdominal distention Auscultation: hypoactive bowel sounds Palpation: Negative for tender Extremity General Extremity: edema Skin no rashes or lesions noted Skin Narrative: Pale Neuro moves all extremities Psych mental status grossly normal Attitude: calm and engaged Activity / Motor Behavior: appropriate eye contact Speech: normal speech Insight: insight good Judgement: judgement good
[2021-09-30] MEDS: Acetaminophen 500 MG Tablet PO (13:17)
--- NOTE | 2021-09-30 14:38 | PN.HOSP_ITS ---
Subjective Subjective Patient indicates that he is feeling much better today but still is getting lightheaded with transitions. His orthostatics remain positive he states that his p.o. intake has been poor at home. We discussed supplements and he states that Ensure is too rich for him and he does not tolerate it well. I asked him if he has tried boost and he said no but he is willing to do so. He would like to pursue continued treatment. We discussed that palliative care would be by to see him today and they could help with symptom management with the hope that he is to be able to go back on chemotherapy and pursue aggressive treatment but would also be there in case that was not able to come to fruition or he did not tolerate it or he did not respond to it and needed to pursue hospice. He was very receptive to that. Objective Data Objective Data Vital Signs: Vital Signs Temp Pulse Resp BP Pulse Ox 97.2 F L 95 20 H 89/53 L 100 09/30/21 11:51 09/30/21 11:51 09/30/21 13:25 09/30/21 11:51 09/30/21 11:51 Oxygen Delivery Method Room Air Weight: 64.183 kg Body Mass Index (BMI) 22.4 Intake & Output: Intake and Output for Last 24 Hours 09/28/21 09/29/21 09/30/21 23:59 23:59 23:59 Intake Total 1291.67 / 1391.67 1769.0 / 1769.0 Output Total 450 / 450 Balance 1291.67 / 1191.67 1319.0 / 1319.0 Medical Nutrition Assessment Dietitian: Malnutrition Criteria Met Start: 09/30/21 11:53 Freq: Status: Active Protocol: Document 09/30/21 11:53 OSWALDO (Rec: 09/30/21 11:53 [email or web address] [id number]) Nutrition Malnutrition Evidence of Malnutrition Exists Yes Malnutrition (severe): Chronic Evidenced By Suboptimal Energy Intake ( Severe),Weight Loss (Severe), Physical Changes (Severe) Clinical Problem Chronic Disease or Condition Related Malnutrition Etiology related to metastatic renal cancer and inability to consume adequate nutrition to meet pt est nutritional needs Signs/Symptoms as evidenced by <50% po intake x > 1 month, 27.5% wt loss x 1 year and fat/muscle loss in face (temporal/orbital areas), clavicle, arms/legs Status Active Problem Recommendation Dietitian Recommendations/Changes Will continue Regular diet - consistency per DAIRY LAB TECHNICIAN. Will provide 8 oz ensure clear w/ meals for increased nutrition if consumed. Will consult DAIRY LAB TECHNICIAN d/t c/o swallowing difficulty w/ food Lab / Micro Data Result Diagrams: 09/30/21 07:10 09/30/21 07:10 Labs: Laboratory Results - last 24 hr 09/29/21 15:18: Lactic Acid 1.5 09/29/21 16:08: Urine Color Yellow, Urine Clarity Sl. Cloudy, Urine pH 5.0, Ur Specific Bliss 1.015, Urine Protein 15 H, Urine Glucose (UA) Normal, Urine Ketones 5 H, Urine Occult Blood Negative, Urine Nitrite Negative, Urine Bilirubin 1 H, Urine Urobilinogen 1 H, Ur Leukocyte Esterase Negative, Urine RBC 0 SEEN, Urine WBC 0-5 SEEN, Ur Squamous Epith Cells 0-5 SEEN, Urine Bacteria 0 SEEN, Urine Mucus 0 SEEN 09/30/21 07:10: WBC 5.9, RBC 3.22 L, Hgb 12.1 L, Hct 34.9 L, MCV 108.4 H, MCH 37.6 H, MCHC 34.7, RDW Std Deviation 59.4 H, RDW Coeff of Luis 14.7 H, Plt Count 240, MPV 10.3, Immature Gran % (Auto) 0.300, Neut % (Auto) 86.3 H, Lymph % (Auto) 5.6 L, Lawrence % (Auto) 5.2, Eos % (Auto) 2.4, Baso % (Auto) 0.2, Absolute Neuts (auto) 5.1, Absolute Lymphs (auto) 0.33 L, Nucleated RBC % 0 09/30/21 07:10: Sodium 134 L, Potassium 3.8, Chloride 106, Carbon Dioxide 21.0, Anion Gap 7, BUN 66 H, Creatinine 1.19, Estim Creat Clear Calc 46.91, Est GFR (MDRD) Af Amer 76, Est GFR (MDRD) Non-Af 63, BUN/Creatinine Ratio 55.5 H, Glucose 96, Calcium 7.6 L, Magnesium 1.8, Total Bilirubin 0.40, AST 29, ALT 23, Alkaline Phosphatase 72, Total Protein 4.7 L, Albumin 1.2 L, Globulin 3.5, Albumin/Globulin Ratio 0.3 L Radiography Diagnostic Testing: Radiology Impression Chest X-Ray 09/29/21 14:57 IMPRESSION: No major interval change. Electronically Signed: Davis Chandler DO at 16:50 EST Tel [phone], Service support , Physical Exam Const alert, oriented x3, no apparent distress and average body habitus Constitutional Narrative: Pleasant older white male sitting up in a chair at the bedside, appears comfortable, nontoxic Exam Limitations: no limitations HEENT head/scalp atraumatic and moist oral mucous membranes HEENT Narrative: Dentition is fair, Mallampati 3, no thrush Head and Scalp: normocephalic Resp normal respiratory effort, no retractions, no use of accessory muscles and clear to auscultation bilaterally Auscultation: Negative for crackles, rales, rhonchi or wheezes Cardio regular rate, regular rhythm, S1 normal heart sound, S2 normal heart sound, no murmurs, no rub, no gallops, no clicks and no JVD GI normal to inspection, nondistended, normoactive bowel sounds, soft to palpation and non-tender GI Narrative: Mild distention-question ascites Extremity no clubbing, cyanosis or edema Peripheral Pulses: Yes pulses 2+ throughout Skin no rashes or lesions noted, no wounds, skin turgor normal, no jaundice, no petechiae and no mottling Skin Narrative: Skin is pale Neuro oriented x3, moves all extremities and no focal motor deficits Sensorium / Orientation: awake, alert, oriented to person, oriented to place and oriented to time Speech: speech normal Psych Psych Narrative: Very pleasant but peers mildly depressed Assessment & Plan Assessment/Plan (1) Hypotension: (2) Dehydration: (3) BRITTNI (acute kidney injury): PLAN: Orthostatic hypotension -Appears to be related to marked dehydration -Overall blood pressures are better -Discontinue metoprolol and losartan -Continue midodrine -Continue IV fluids -Repeat orthostatics in the morning -Patient is still somewhat symptomatic but if improved in the next 24 hours anticipate discharge on 10/01/2021 BRITTNI secondary to dehydration -Serum creatinine on admission was 1.99 -Serum creatinine today is 1.19 -BUN has improved -Continue IV fluids at current rate -Baseline serum creatinine is 1.0-1.2 -Hold Lasix Hyponatremia -Suspect hypovolemic hyponatremia as it has improved with IV fluids -Current serum sodium is 134 -Repeat BMP in a.m. Hypomagnesemia -Resolved History of DVT -Continue Xarelto Metastatic renal clear cell carcinoma -Overall prognosis poor but patient indicates he is Sikhism and praying for a miracle -Patient would like to pursue further chemotherapy -Patient is interested in palliative care and therefore referral made -Has required a recent 6 L paracentesis and 600 cc thoracentesis for ascites and pleural effusion related to malignancy -Monitor respiratory status and abdomen -Follow-up with oncologist as an outpatient -Hold Lasix Hyperlipidemia -Continue atorvastatin Asthma -Continue home inhalers Allergies -Continue nasal spray GERD -Continue PPI Hypertension -Patient is hypotensive and has been -Discontinue metoprolol, losartan, Lasix -Monitor blood pressure -Patient is currently on midodrine for blood pressure support DVT prophylaxis -Fully anticoagulated with Xarelto CODE STATUS -DNR CCA no intubation per discussion with patient and in the emergency department Charges/Coding Visit Charges Inpatient E&M: 78439 Subs Hosp L2
[2021-09-30] MEDS: 0.9% Saline Lock 10 ML Syringe IV (15:01)
[2021-09-30] MEDS: Ondansetron 4 MG/2 ML Vial IV (15:01)
[2021-09-30] MEDS: Rivaroxaban 20 MG Tablet PO (16:39)
--- NOTE | 2021-09-30 16:43 | CASEMGMT ---
SUHA JAMISON Assessment: Face to Face with pt for initial transition planning/care coordination assessment. RN SHAHEEN introduced self and role at [facility], pt voices understanding and consents to assessment. Pt is A/O x4 and answers all questions appropriately at this time. Pt sitting up in bed in no distress with at bedside. Care providers, pharmacy, and demographics verified/updated. Admitting Dx: hypotension, dehydration PCP:Poncho Specialists:[facility] Preferred Pharmacy: [facility] Insurance: [facility] Prescription Benefit: yes LW/HPOA: Pt has LW/DPOA on file at [facility]. Pt is DPOA. LNOK: Yocasta Bullard, ; Vicente Bullard, son Living Arrangements: Pt lives with in a single story house with 3 steps to enter with rail. Pt reports being I in ADL's and denies concerns at home. Transportation: Pt drives self and denies concerns with transportation. DME/HHC/SNF: Pt has a cane, walker, shower chair at home but does not use. Pt has a seat built in in his shower. Pt denies hx of HHC or SNF stays. Pt states no concerns with going home at time of dc. Pt states he is weak but denies need for therapy. Pt states no further concerns/needs. CM to follow. Advised pt to ask CM if any further question/concerns/needs arise, voices understanding. Pt Goal: Home Plan: Home
--- NOTE | 2021-09-30 17:05 | SP.MBSS_ITS ---
Modified Barium Swallow - Patient Information Study Date: 09/30/21 Study Time: 15:00 Direct Billable Minutes: 120 Total Minutes procedure & reportin Diagnosis: Dysphagia R13.10 Referring Physician: Mayra Warren Reason for Referral: Pt. was referred for an objective videofluoroscopy evaluation of the swallow to determine LRD and to rule out aspiration. Medical History: STEPHEN CHILDRESS, is a 76 M who presents to the emergency room at [facility] after being sent over by his oncologist due to a low blood pressure and abnormal labs which showed the patient to be dehydrated. Patient was given 1 L of fluid and his oncologist office today but he remained hypotensive and was sent over for evaluation to the emergency room at [facility]. Patient has a history of metastatic renal cancer and is currently receiving Cabozantinib since March 2021, at this time, this medication is on hold as of this month due to increasing fatigue and failing performance status. Patient's blood pressure in the emergency room was 84/59 on admission to the ER. Lab obtained today included a CBC which showed a slightly low hemoglobin at 12.3, patient's chemistry profile was remarkable for sodium of 131, creatinine of 1.99, BUN of 83, and magnesium of 1.3. Patient was given IV fluids in the emergency room, he will be admitted to [place] [id number] for dehydration and hypotension. I had a discussion with the patient and his regarding his CODE STATUS, he has agreed to a DNR CC arrest with no intubation status. I think that this is appropriate. 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 PER TRIAL): PENETRATION / ASPIRATION SCALE (OSORIO): 1 = does not enter airway 2 = enters airway/above vocal folds/ejected 3 = enters airway/above vocal folds/not ejected 4 = enters airway/contacts vocal folds/ejected 5 = enters airway/contacts vocal folds/not ejected 6 = enters airway/below vocal folds/ejected 7 = enters airway/below vocal folds/not ejected despite effort 8 = enters airway/below vocal folds/no effort - Penetration-Aspiration Scale Score Thin Liquid via teaspoon Result: 4= enters airway/contacts vocal folds/ejected Thin Liquid via teaspoon Trial 2 Result: 2= enter airway/above vocal folds/ejected Thin Liquid via small single sip from cup Result: 2= enter airway/above vocal folds/ejected [place] Thick Liquid via small single sip from cup Result: 2= enter airway/above vocal folds/ejected Honey Thick Liquid via small single sip from cup Result: 8= enters airway/below vocal folds/no effort - Pt. gagged on texture and changed positions, limiting view of airway on initial swallow. Aspiration observed on re-swallow Honey Thick Liquid via teaspoon Result: 8= enters airway/below vocal folds/no effort - Pt. gagged on texture, showing significant discomfort Pudding via teaspoon Result: 1= does not enter airway - Pt. gagged on texture, showing discomfort. Pt. movement limited view of airway Cookie via teaspoon Result: 1= does not enter airway Thin Liquid via small single sip from cup Trial 2 Result: 2= enter airway/above vocal folds/ejected - Oral Phase Labial Seal: Escape progressing to mid-chin Tongue Control During Bolus Hold: Cohesive bolus between tongue to palatal seal Bolus Preparation/Mastication: Slow prolonged chewing/mashing with complete recollection Bolus Transport/Lingual Motion: Repetitive/disorganized tongue motion Oral Residue: Residue collection on oral structures - Pharyngeal Phase Initiation of Pharyngeal Swallow: Bolus head in pyriforms Soft Palate Elevation: Trace column of contrast/air between soft palate and pharyngeal wall Laryngeal Elevation: Partial superior movement thyroid cart/partial apprx aryt- epig petiole Anterior Hyoid Excursion: Partial anterior movement Epiglottic Movement: No inversion Laryngeal Vestibule Closure at Height of Swallow: Incomplete; narrow column of air/contrast in laryngeal vestibule Pharyngeal Stripping Wave: Absent Pharyngoesophageal Segment Opening: Complete distension and complete duration; no obstruction of flow Tongue Base Retraction: Trace column of contrast between tongue base & post. pharyngeal wall Pharyngeal Residue: Minimal to no pharyngeal clearance - Esophageal Phase Esophageal Clearance: Complete clearance - Treatment Strategies Effects of treatment strategies attemped:: Pt. trialed strategies of re-swallow, liquid wash, effortful swallow and chin tuck swallow to assist in clearing pharyngeal residuals without success. - Diagnosis/Impression Diagnosis: moderate to severe oropharyngeal dysphagia R13.12 Impression: Pt. presents with oral phase dysphagia characterized by decreased labial seal, prolonged mastication, decreased bolus formation, decreased anterior-posterior oral transit resulting in anterior oral leakage and oral residuals. Pt. presents with pharyngeal phase dysphagia characterized by delayed initiation of the swallow, decreased laryngeal elevation, decreased anterior hyoid excursion, decreased tongue base retraction and pharyngeal constriction resulting in posterior pre-spill to the pyriform sinus prior to the swallow initiation, decreased epiglottic deflection, penetration and pharyngeal residuals. Pt. presented with pharyngeal residuals with all textures, but residuals increased with honey, pudding and cookie textures. Pt. attempted to clear pharyngeal residuals with use of liquid wash, re-swallow, effortful swallow and chin tuck swallow without success. Penetration was seen with all consistencies and aspiration with honey thick liquids. Pt. presented with throat clearing with penetration. Pt. presented with significant discomfort and gagging with honey and pudding trials. FINANCIAL INTERN spoke with RN, Isabela, who stated Pt. lung sounds are clear. Pt. was aware of pharyngeal residuals and able to follow directions given by therapist. Pt. spouse was able to present during the MBSs and vocalized understanding of safe swallow strategies and diet recommendations. - Recommendations Diet: Thin Liquids, [place]-thick Liquids Comment: Thin and nectar thick liquid only diet. IDDSI levels 0,1 and 2 only Compensatory Strategies: Small Sips, Slow Rate, Feed only when alert, Multiple Swallows, Remain sitting upright for 30 minutes after PO intake Supervision: 1:1 Close Supervision Recommend Repeat Modified Barium Swallow: TBD - repeat MBS warranted with change in function Need for Skilled Speech Therapy Services: Yes - ST tx to address dysphagia Comment: Pt. recommended to have continued ST tx to address monitoring of diet tolerance, strengthening exercises, training safe swallow strategies and to monitor respiratory status. Recommended Referrals: Dietitian Consult - to address nutritional intake needs with limited diet texture tolerance Education Completed: 1. Described result of evaluation., 2. Pt understands evaluation & agrees with goals and treatment plan., 4. Family/caregivers understand evaluation & agree w/ goals & tx plan., 7. Pt requires further education on strategies & risks., 8. Family/caregivers require further education on strategies & risks. - Status Active ST Patient: Active - Contact Information [facility] Speech Therapy:: [place] [id number] [place] [address] Francisca Kelsey M.A. CCC-FINANCIAL INTERN [email or web address] 09/30/21 17:24
[2021-09-30] MEDS: 0.9% Normal Saline 1,000 ML 50 ML IV (21:31)
[2021-09-30] MEDS: Atorvastatin Calcium 20 MG Tablet PO (21:32)
[2021-10-01] VITALS (8 sets, daily range): BP systolic 78–119; BP diastolic 43–87; PULSE 73–128; RESP 15–18; TEMP 36.1–36.6; O2SAT 94–99
--- NOTE | 2021-10-01 04:21 | NURSING ---
This RN reviewed SN charting and agree with charting.
[2021-10-01] MEDS: Budesonide Respules 0.5 MG/2 ML AMPUL.NEB. INHALATION (07:00)
[2021-10-01] MEDS: Albuterol 2.5 MG/3 ML VIAL.NEB. INHALATION ×2 (07:00→13:20)
[2021-10-01 08:29] LABS: Anion Gap 8 (5-15); BUN 45 mg/dL (7-18); BUN/Creat Ratio 47.5 RATIO (10-20); Calcium,Total 7.9 mg/dL (8.5-10.1); Chloride 108 mmol/L (98-107); Creatinine, Serum 0.95 mg/dL (0.70-1.30); EST Glomerular Filtration Rate 82 mL/min (>60); Est Glom Filt Rate - Afr Amer 99 mL/min (>60); Estimated Creatinine Clearance 58.76 ml/min; Glucose 103 mg/dL (74-106); Potassium 3.9 mmol/L (3.5-5.1); Sodium Level 137 mmol/L (136-145)
[2021-10-01] MEDS: 0.9% Normal Saline 1,000 ML 999 ML IV (08:30)
[2021-10-01] MEDS: Magnesium Chloride 64 MG Delay Rel.Tablet 128 MG PO (08:41)
[2021-10-01] MEDS: Pantoprazole Sodium 40 MG Tablet PO (08:41)
[2021-10-01] MEDS: Cyanocobalamin 500 MCG Tablet PO (08:42)
[2021-10-01] MEDS: Midodrine HCl 5 MG Tablet 10 MG PO ×2 (08:42→12:29)
--- NOTE | 2021-10-01 08:49 | NURSING ---
Pt worked with P.T at this time. P.T aware pts bp is low and getting bolus. pt sat at edge of bed, did therapy in bed. Ravi sitting on edge of bed for 5min.
--- NOTE | 2021-10-01 12:35 | PCM.DC.SUM ---
Providers Date of Admission: 09/29/21 Primary Care Physician: Dr. Lobito Isaac MD Consultations 09/30/21 08:34 Consult: Hospice / Palliative Care Routine Consulting Provider: [facility] Reason for Consult: Metastatic Clear Cell Carcinoma-Poor Prognosis per ONC EMERGENT Consult: No MD Notified: Yes Date Notified: 09/30/21 Time Notified: 11:41 Method of Notification: Verbal Comments:: Marlee Mcleod TECHNICIAN SEMICONDUCTOR DEVELOPMENT to unit Reason For Visit: HYPOTENSION, DEHYDRATION Diagnosis Discharge Diagnosis (1) Hypotension: Status: Acute Code(s): I95.9 - Hypotension, unspecified (2) Dehydration: Status: Acute Code(s): E86.0 - Dehydration (3) BRITTNI (acute kidney injury): Status: Acute Code(s): N17.9 - Acute kidney failure, unspecified Medications at Discharge Home Medications omeprazole 40 mg PO DAILY 02/07/14 atorvastatin 20 mg PO QHS 11/10/17 icosapent ethyl 2 gm PO BID 10/14/20 levocetirizine 5 mg PO DAILY 10/14/20 cholecalciferol (vitamin D3) 25 mcg PO BID 11/29/20 coenzyme Q10 200 mg PO DAILY 11/29/20 vit C,D-Fw-hszop-lutein-zeaxan 1 each PO QHS 11/29/20 zinc 50 mg PO DAILY 11/29/20 lidocaine-prilocaine 1 applic TP DAILY PRN PRN 30 Days #1 tube 12/20/20 ondansetron 8 mg PO Q8H PRN PRN 10 Days #30 tab.rapdis 02/17/21 rivaroxaban 20 mg PO DAILY #90 tablet 03/03/21 magnesium oxide 400 mg (241.3 mg magnesium) tablet 400 mg PO DAILY #90 tab 04/15/21 albuterol sulfate 90 mcg/actuation aerosol inhaler 2 puff INHALATION Q4H PRN #8.5 gm 07/20/21 azelastine-fluticasone 137 mcg-50 mcg/spray nasal spray 1 spray INTRANASAL BID #3 each 07/20/21 budesonide-formoterol HFA 160 mcg-4.5 mcg/actuation aerosol inhaler 2 puff INHALATION BID #10.2 gm 07/20/21 montelukast 10 mg tablet 10 mg PO QPM #90 tab 07/20/21 tiotropium bromide 1.25 mcg/actuation mist for inhalation 2 puff INHALATION DAILY #3 ea 07/20/21 tramadol 50 mg tablet 50 mg PO Q6H PRN 07/26/21 furosemide 20 mg tablet 20 mg PO .3 days week #50 tab 07/27/21 Cabometyx 40 mg PO DAILY 09/29/21 acetaminophen 1,000 mg PO Q4H PRN PRN 09/29/21 ascorbic acid (vitamin C) 250 mg PO DAILY 09/29/21 cyanocobalamin (vitamin B-12) 1,000 mcg PO BID 09/29/21 fluticasone propionate 2 spray INTRANASAL BID 09/29/21 folic acid 0.4 mg PO DAILY 09/29/21 metoprolol tartrate 12.5 mg PO BID #60 tab 10/01/21 midodrine 10 mg PO TIDCM #180 tab 10/01/21 Hospital Course Operations None Procedures None Summary of Care Provided Minutes Spent on Discharge: 42 Hospital Course: Mr. Briceno is a 76-year-old white male who presented to the emergency department at [facility] on 09/29/2021 after being sent by his oncologist due to hypotension and abnormal labs. The patient was given 1 L of IV fluids in his oncologist office today but remained hypotensive and therefore was sent to the emergency department for evaluation. He has a known history of metastatic renal cancer for which he is receiving Cabozantinib since March 2021. He had been on previous agents but had to discontinue these due to side effects. At this time his current agent has been on hold this month secondary to increasing fatigue and failing performance status. His BP on admission was 84/59. His CBC was overall fairly unremarkable but his BMP showed a hyponatremia with a serum creatinine of 1.99 and an elevated BUN at 89 with a magnesium level of 1.3. He was admitted to the medical surgical floor and his antihypertensives including losartan and metoprolol were initially discontinued. Due to some tachycardia his metoprolol was restarted but it was switched from succinate to tartrate and the discharge dose was 12.5 mg twice daily. This may need uptitrated depending on his heart rates and symptoms. His orthostatic vitals were positive and he was given another liter of fluid and maintained on IV fluids at 50 cc/h while he was hospitalized. His orthostasis did improve and we discussed slower transitions and the utilization is of a walker at home. I did encourage him to have someone at bedside with standing. He was also started on midodrine and this was continued upon discharge. He was evaluated by palliative care during his hospitalization. During my conversation with him he indicated that he still is interested in aggressive care and is not yet ready for hospice type help but was very interested with palliative follow-up. His hyponatremia had resolved and on discharge his serum sodium was 137. His serum creatinine had improved to 0.95 with respect to BUN of 45. His magnesium was treated and upon discharge was 1.8. He was seen by the dietitian and speech therapy during his stay a modified barium swallow was performed where moderate to severe oropharyngeal dysphagia was noted. Diet recommendations on discharge were thin and nectar thick liquids only and diet recommendations were reviewed with the patient and his family. They also gave him tools to improve his swallowing and he will need referred for outpatient modified barium swallow and need to consider possible outpatient speech therapy depending on the patient's performance status and how he is overall feeling. I will leave this referral up to his oncologist and primary care physician. His stated that she would continue to work with the recommended exercises and compensatory strategies with him after discharge. We also recommended that he ambulate with a walker to avoid falls. He was discharged home with his in stable condition on 10/01/2021. Discharge diagnoses: Orthostatic hypotension-improved BRITTNI-resolved Hyponatremia-resolved History of DVT Metastatic renal clear cell carcinoma Dysphagia Hyperlipidemia Asthma Allergies GERD Hypertension Physical Exam Const alert, oriented x3, no apparent distress and average body habitus Constitutional Narrative: Pleasant older white male sitting up in bed, appears comfortable, nontoxic, at bedside General Appearance: cooperative, comfortable, well kempt and well developed Orientation / Consciousness: awake, oriented to person, oriented to place and oriented to time Exam Limitations: no limitations HEENT normocephalic, head/scalp atraumatic, hearing grossly normal bilaterally and moist oral mucous membranes Eyes PERRL, EOMs intact bilaterally and conjunctivae normal Neck nuchal rigidity, no lymphadenopathy, supple, no JVD and thyroid normal Neck Narrative: Short thick neck, trachea midline General: trachea midline Resp normal respiratory effort, no retractions, no use of accessory muscles and clear to auscultation bilaterally Auscultation: Negative for crackles, rales, rhonchi or wheezes Cardio regular rate, regular rhythm, S1 normal heart sound, S2 normal heart sound, no murmurs, no rub, no gallops, no clicks and no JVD GI normal to inspection, nondistended, normoactive bowel sounds, soft to palpation, non-tender and non-distended GI Narrative: Mild distention-question ascites Extremity normal to inspection and no clubbing, cyanosis or edema Skin no rashes or lesions noted, no wounds, skin turgor normal, no jaundice, no petechiae and no mottling Skin Narrative: Skin is pale General Skin Exam: no breakdown Neuro oriented x3, CN's II-XII intact bilaterally, moves all extremities, no focal motor deficits and no sensory deficits noted Sensorium / Orientation: awake, alert, oriented to person, oriented to place and oriented to time Speech: speech normal Psych thought process normal and affect normal Psych Narrative: Very pleasant but peers mildly depressed Medical Records Data Medical Nutrition Assessment Dietitian: Malnutrition Criteria Met Start: 09/30/21 11:53 Freq: Status: Active Protocol: Document 09/30/21 11:53 [email or web address] (Rec: 09/30/21 11:53 [facility] [id number]) Nutrition Malnutrition Evidence of Malnutrition Exists Yes Malnutrition (severe): Chronic Evidenced By Suboptimal Energy Intake ( Severe),Weight Loss (Severe), Physical Changes (Severe) Clinical Problem Chronic Disease or Condition Related Malnutrition Etiology related to metastatic renal cancer and inability to consume adequate nutrition to meet pt est nutritional needs Signs/Symptoms as evidenced by <50% po intake x > 1 month, 27.5% wt loss x 1 year and fat/muscle loss in face (temporal/orbital areas), clavicle, arms/legs Status Active Problem Recommendation Dietitian Recommendations/Changes Will continue Regular diet - consistency per PUBLIC RELATIONS SUPERVISOR. Will provide 8 oz ensure clear w/ meals for increased nutrition if consumed. Will consult PUBLIC RELATIONS SUPERVISOR d/t c/o swallowing difficulty w/ food Weight / BMI Weight Weight: 64.183 kg Body Mass Index (BMI) 22.4 ABG / Lab / Microbiology Data Result Diagrams: 09/30/21 07:10 10/01/21 07:33 Laboratory: Laboratory Results - last 24 hr 10/01/21 07:33: Sodium 137, Potassium 3.9, Chloride 108 H, Carbon Dioxide 21.0, Anion Gap 8, BUN 45 H, Creatinine 0.95, Estim Creat Clear Calc 58.76, Est GFR (MDRD) Af Amer 99, Est GFR (MDRD) Non-Af 82, BUN/Creatinine Ratio 47.5 H, Glucose 103, Calcium 7.9 L D/C Instructions Discharge Diet: No restrictions (Please follow speech therapy instructions for swallowing techniques) Discharge Activity: Return to Normal Activity Meaningful Use Info Meaningful Use Diagnoses (Choose all that apply): None applicable Discharge Plan Admission Admit Date/Time: 09/29/21 15:55 Primary Reason for Your Visit: Hypotension/dehydration Attending Provider: Mayra Warren Primary Care Provider: Lobito Isaac Consulting Providers: Juanita Evans ; Bryan Ch ; Lucía Castlilo ; Marlee Mcleod ; Lindsey Warner ; Karis Malone TECHNICIAN SEMICONDUCTOR DEVELOPMENT Discharge Orders/Prescriptions Prescriptions: New midodrine 5 mg Tablet 10 mg PO TIDCM Qty: 180 RF: 0 metoprolol tartrate 25 mg Tablet 12.5 mg PO BID Qty: 60 RF: 0 Continued magnesium oxide [MagOx] 400 mg (241.3 mg magnesium) tablet 400 mg PO DAILY Qty: 90 RF: 2 albuterol sulfate 90 mcg/actuation HFA aerosol inhaler 2 puff INHALATION Q4H PRN (Reason: shortness of breath or wheezing) Qty: 8.5 RF: 6 azelastine-fluticasone 137-50 mcg/spray spray,non-aerosol 1 spray INTRANASAL BID Qty: 3 RF: 3 budesonide-formoterol 160-4.5 mcg/actuation HFA aerosol inhaler 2 puff INHALATION BID Qty: 10.2 RF: 6 montelukast [Singulair] 10 mg tablet 10 mg PO QPM Qty: 90 RF: 3 Spiriva Respimat 1.25 mcg/actuation mist 2 puff inhalation DAILY Qty: 3 RF: 3 tramadol 50 mg tablet 50 mg PO Q6H PRN (Reason: Pain) RF: 0 omeprazole 40 MG capsule 40 mg PO DAILY RF: 0 atorvastatin 20 MG tablet 20 mg PO QHS RF: 0 levocetirizine 5 MG tablet 5 mg PO DAILY RF: 0 icosapent ethyl 1 GM capsule 2 gm PO BID RF: 0 lidocaine-prilocaine 30 GM cream 1 applic TP DAILY PRN PRN (Reason: Not Specified) 30 Days Qty: 1 RF: 2 ondansetron 8 MG tablet,disintegrating 8 mg PO Q8H PRN PRN (Reason: Nausea) 10 Days Qty: 30 RF: 3 rivaroxaban 20 MG tablet 20 mg PO DAILY Qty: 90 RF: 4 zinc 50 MG tablet 50 mg PO DAILY RF: 0 coenzyme Q10 100 MG capsule 200 mg PO DAILY RF: 0 cholecalciferol (vitamin D3) 25 MCG tablet 25 mcg PO BID RF: 0 vit C,B-Ed-rlooj-lutein-zeaxan 1 EACH capsule 1 each PO QHS RF: 0 cyanocobalamin (vitamin B-12) 1,000 mcg Tablet 1,000 mcg PO BID RF: 0 folic acid 400 mcg Tablet 0.4 mg PO DAILY RF: 0 ascorbic acid (vitamin C) 250 mg Tablet 250 mg PO DAILY RF: 0 fluticasone propionate 50 mcg/actuation spray,suspension 2 spray INTRANASAL BID RF: 0 Cabometyx 40 mg tablet 40 mg PO DAILY RF: 0 acetaminophen 500 MG tablet 1,000 mg PO Q4H PRN PRN (Reason: Pain Score 1-5/10) RF: 0 furosemide [Lasix] 20 mg tablet 20 mg PO .3 days week Qty: 50 RF: 4 Discontinued metoprolol succinate 100 mg tablet extended release 24 hr 100 mg PO DAILY RF: 0 losartan 25 mg tablet 25 mg PO DAILY Qty: 30 RF: 4 Referrals / Follow Up: Diane Eugene MD [STAFF PHYSICIAN] - See Referral Note (As scheduled) Lobito Isaac MD [Primary Care Provider] - Within 2 Weeks Disposition Disposition (needs filled in before D/C Order can be placed): Home, Self Care Charges/Coding Visit Charges Inpatient E&M: 92111 Disch Hosp
[2021-10-01] MEDS: 0.9% Saline Lock 10 ML Syringe IV (14:33)
--- NOTE | 2021-10-03 14:31 | CASEMGMT ---
SUHA JAMISON Discharge Follow-up Phone Call: DARIENYanelis: Jose Strata: 3 Call Date: 10/03/21 Discharge Date: 10/01/21 Time of Call: 1425 Duration: 5 min Admitting Diagnosis: Hypotension, Dehydration SUHA JAMISON completed follow-up phone call after recent hospitalization. Patient states he has been tired. No questions or concerns regarding discharge instructions. Patient was able to fill prescriptions without any issues. Patient aware of follow-up appts. Patient had no further questions or concerns at home.
== END 2021-10-01 15:26 | disposition home or self-care (01) | DRG 641 ==
LOC: ED 15:18 → MS3 17:29
PROVIDERS: Admitting Provider Internal Medicine; Emergency Provider Emergency Medicine; PCP Family Medicine; Visit Provider Internal Medicine
DX: E86.0 Dehydration (principal); C64.1 Malignant neoplasm of right kidney, except renal pelvis; C77.8 Secondary and unspecified malignant neoplasm of lymph nodes of multiple regions; R18.0 Malignant ascites; J91.0 Malignant pleural effusion; C77.0 Secondary and unspecified malignant neoplasm of lymph nodes of head, face and neck; C77.1 Secondary and unspecified malignant neoplasm of intrathoracic lymph nodes; C78.6 Secondary malignant neoplasm of retroperitoneum and peritoneum; N17.9 Acute kidney failure, unspecified; I95.1 Orthostatic hypotension; E87.1 Hypo-osmolality and hyponatremia; E83.42 Hypomagnesemia; I12.9 Hypertensive chronic kidney disease with stage 1 through stage 4 chronic kidney disease, or unspecified chronic kidney disease; N18.9 Chronic kidney disease, unspecified; J44.9 Chronic obstructive pulmonary disease, unspecified; E78.5 Hyperlipidemia, unspecified; K21.9 Gastro-esophageal reflux disease without esophagitis; Z79.01 Long term (current) use of anticoagulants; Z79.899 Other long term (current) drug therapy; Z86.718 Personal history of other venous thrombosis and embolism; R13.12 Dysphagia, oropharyngeal phase
CPT/HCPCS: 36415; 36591; 49083; 71046; 74230; 80048; 80053; 81001; 83605; 83615; 83735; 84100; 84157; 85025; 86850; 86900; 86901; 88108; 88305; 88313; 92526; 92610; 92611; 94640; 96360; 97110; 97162; 97166; 97530; 97802; 99283; J7030; J7040; A4216; J2405